=== PATIENT | female | born 2000 | race Caucasian/White ===

== ENCOUNTER 2023-10-12 15:39 | Outpatient (OUT) | payer OTHER, SELFPAY ==
[2023-10-12 16:45] LABS: Estimated Average Glucose 105 mg/dL; Glycohemoglobin A1C 5.3 % (4.5-6.2)
[2023-10-12 17:48] LABS: Free T4 1.04 ng/dL (0.76-1.46)
[2023-10-12 17:52] LABS: Thyroid Stimulating Hormone 2.705 uIU/mL (0.358-3.740)
[2023-10-14 12:09] LABS: FSH 4.9 mIU/mL (.); Luteinizing Hormone(LH) 7.6 mIU/mL (.)
[2023-10-18 06:07] LABS: DHEA, Serum 305 ng/dL (31-701)
== END 2023-10-12 15:40 | disposition home or self-care (01) ==
LOC: LAB 15:44
PROVIDERS: Visit Provider Physician Assistant
DX: E28.2 Polycystic ovarian syndrome (principal); N92.6 Irregular menstruation, unspecified
CPT/HCPCS: 36415; 82626; 82627; 83001; 83002; 83036; 84439; 84443

== ENCOUNTER 2024-02-10 14:54 | Outpatient (OUT) | payer OTHER, SELFPAY ==
--- NOTE | 2024-02-10 14:56 | US_ITS ---
The [address] [address] Patient Name: WALTER SOSA MRN: [id number] date: 2000 Sex: F Assigned Patient Location: Current Patient Location: Accession/Order Number: [id number] Exam Date: 02/10/2024 14:56 Report Date: 02/11/2024 07:27 At the request of: NADIA MENENDEZ Procedure: US pelvis w/ transvaginal EXAMINATION: US pelvis w/ transvaginal HISTORY: MENORRHAGIA WITH REGULAR CYCLE COMPARISON: No relevant comparison available. FINDINGS: Transabdominal and transvaginal images The uterus is anteverted, retroflexed. The uterus measures 6.8 x 3.4 x 4.0 cm. No focal myometrial mass. The endometrium measures 1.4 cm, correlate with the menstrual cycle. The right ovary is normal measuring 2.5 cm. Normal color flow. The left ovary is not visualized. Limited evaluation secondary to patient body habitus and inability to tolerate the transvaginal exam US/US pelvis w/ transvaginal IMPRESSION: Limited exam. No acute abnormality Electronically authenticated by: TANYA LEVINE Date: 02/11/2024 07:27
== END 2024-02-10 14:55 | disposition home or self-care (01) ==
LOC: US 14:54
PROVIDERS: Visit Provider Obstetrics & Gynecology
DX: N92.0 Excessive and frequent menstruation with regular cycle (principal)
CPT/HCPCS: 36415; 76830; 76856; 84439; 84443; 84702; 85025; 85610

== ENCOUNTER 2024-02-10 15:35 | Outpatient (OUT) | payer OTHER, SELFPAY ==
[2024-02-10 16:11] LABS: Prothrombin Time 9.7 sec (9.0-11.6)
[2024-02-10 16:20] LABS: Free T4 1.05 ng/dL (0.76-1.46)
[2024-02-10 16:30] LABS: INR <0.93
[2024-02-10 16:34] LABS: Basophils Percent Auto 0.3 % (0.2-2.0); Eosinophils Absolute Auto 0.2 10^3/uL (0.0-0.7); Eosinophils Percent Auto 1.7 % (0.9-7.0); Hematocrit 41.2 % (36.0-48.0); Hemoglobin 13.7 g/dL (12.0-16.0); Immature Granulocytes Abs Auto 0.03 10^3/uL (0.00-0.03); Immature Granulocytes Pct Auto 0.3 % (0.0-0.5); Lymphocytes Absolute Auto 3.3 10^3/uL (1.2-3.8); Mean Corpuscular HGB Conc 33.3 g/dL (29.9-35.2); Mean Corpuscular Hemoglobin 28.4 pg (26.7-34.0); Mean Corpuscular Volume 85.5 fL (81.0-99.0); Mean Platelet Volume 10.7 fL (9.5-13.5); Monocytes Absolute Auto 0.9 10^3/uL (0.3-0.8); Monocytes Percent Auto 7.9 % (1.7-12.0); Neutrophils Absolute Auto 6.9 10^3/uL (1.4-6.5); Neutrophils Percent Auto 60.8 % (43.0-75.0); Platelet Count 309 10^3/uL (150-450); Red Blood Count 4.82 10^6/uL (4.20-5.40); White Blood Count 11.4 10^3/uL (4.0-11.0)
[2024-02-10 17:03] LABS: HCG Quantitative <1 mIU/mL
== END 2024-02-10 15:36 | disposition home or self-care (01) ==
LOC: LAB 15:35
PROVIDERS: Visit Provider Obstetrics & Gynecology
DX: N92.0 Excessive and frequent menstruation with regular cycle (principal)
CPT/HCPCS: 36415; 84439; 84443; 84702; 85025; 85610

== ENCOUNTER 2025-04-10 12:03 | Outpatient (REF) | payer OTHER, SELFPAY ==
--- OUTSIDE RECORDS SUMMARY | 2024-12-22 05:30 | XMS_ITS ---
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 resourcing consultant-UTI & yeast infection. * Medical History: * Surgical History: T onsillectomy and adenoidectomy, COMMENTS: 2008, ProblemStatus: Active, . Objective: * Vitals: Assessment: Plan: * Treatment: * Billing Information: * Visit Code: * Procedure Codes: * Electronic signature of Kasey Newberry MD on 04/10/2025 at 08:08 AM EDT Sign off status: Pending * Provider: Tez Newberry MD Date: 0 12/22/2024 Generated for Valdemar barrientos/Elieser/Edenilson on: 0 04/10/2025 08:08 AM EDT
--- OUTSIDE RECORDS SUMMARY | 2025-04-02 10:00 | XMS_ITS | Encounter Summary ---
Author Organization [facility] Address [address] [place] [address] Care Team Providers Care Patient'S Librarian Name Role Phone Unavailable Primary Care Provider Unavailabl e Encounter Details Date Type Department Care Team (Latest Contact Info) Description 04/02/2025 10:00 AM EDT Ancillary Procedure [facility] [address] [place] [address] PCB (post coital bleeding); Pelvic pain; Dysmenorrhea; Irregular menses Social History Tobacco Use Types Packs/Day Years Used Date Smoking Tobacco: Never Smokeless Tobacco: Never Alcohol Use Standard Drinks/Week Comments Never 0 (1 standard drink = 0.6 oz pur e alcohol) Comments Unknown Sex and Gender Information Value Date Recorded Sex Assigned at Not on file Legal Sex Female 8:28 PM EDT Gender Identity Not on file Sexual Orientation Not on file documented as of this encounter Plan of Treatment Upcoming Encounters Date Type Department Care Team (Late st Contact Info) Description 05/10/2025 11:20 AM EDT Office Visit JOE [facility] [address] [place] [address] Rodney Aguilar DO [address] [place], [facility]11 documented as of this encounter Procedures Procedure Name Priority Date/Time Associated Diagnosis Comments US PELVIC COMPLETE W/ TV Routine 04/02/2025 10:07 AM EDT PCB (post coital bleeding) Pelvic pain Dysmenorrhea Irregular menses documented in this encounter Results * US Pelvis w/ TV (04/02/2025 10:07 AM EDT) Anatomical Region Laterality Modality Pelvis Ultrasound 04/03/2025 12:3 7 PM EDT Impressions 04/03/2025 1:11 PM EDT Normal pelvic ultrasound appearance TRANSCRIBED BY: ELECTRONICALLY SIGNED BY: Sergio Tran MD [facility] 04/03/2025 1:11 PM EDT FINDINGS: Uterus 6.9 x 3.4 x 4.9 cm Endometrium 10 mm Right ovary 2.7 x 1.9 x 2.1 cm Left ovary 1.5 x 1.1 x 1.7 cm The uterus is normal in size and orientation. No worrisome mass lesions are seen. Endometrium appears unremarkable. No fluid is seen within the cul-de-sac. Both ovaries appear normal for this age. Procedure Note Sergio Tran MD - 04/03/2025 FINDINGS: Uterus 6.9 x 3.4 x 4.9 cm Endometrium 10 mm Right ovary 2.7 x 1.9 x 2.1 cm Left ovary 1.5 x 1.1 x 1.7 cm The uterus is normal in size and orientation. No worrisome mass lesionsare seen. Endometrium appears unremarkable. No fluid is seen within [id number]. Both ovaries appear normal for this age. IMPRESSION: Normal pelvic ultrasound appearance TRANSCRIBED BY: ELECTRONICALLY SIGNED BY: Sergio Tran MD us Rodney Aguilar DO [facility] [place] PROCEDURES Final Result documented in this encounter Visit Diagnoses Diagnosis PCB (post coital bleeding) Postcoital bleeding Pelvic pain Dysmenorrhea Irregular menses Irregular menstrual cycle documented in this encounter
--- OUTSIDE RECORDS SUMMARY | 2025-04-10 10:00 | XMS_ITS | Encounter Summary ---
Demographics Address [address] [facility] [address] Home Phone Mobile Phone Email Address Preferred Language en Marital Status Unmarried Sikhism Affiliation Unknown Race White Ethnic Group Unknown Author Organization [facility] Address [address] [place] [address] Care Team Providers Care Information Operator Name Role Phone Unavailable Primary Care Provider Unavailabl e Reason for Visit * Reason Comments Pre-op Visit Gynecologic Exam Encounter Details Date Type Department Care Team (Late Contact Info) Description 04/10/2025 10:00 AM EDT Office Visit [facility] [place] [facility] [address] [phone] Rodney Aguilar DO [address] [place] [address] Pre-op examination; Pelvic pain; Dysmenorrhea; PCB (post coital bleeding); Well woman exam with routine gynecological exam; PCOS (polycystic ovarian syndrome) Social History Tobacco Use Types Packs/Day Years [...] on file documented as of this encounter Last Filed Vital Signs Vital Sign Reading Time Taken Comments Blood Pressure 120/74 04/10/2025 10:14 AM EDT Pulse - - Temperature - - Respiratory Rate - - Oxygen Saturation - - Inhaled Oxygen Concentration - - Weight 131 kg (287 lb 12.8 oz) 04/10/2025 10:14 AM EDT Height - - Body Mass Index 49.4 07/30/2022 12:00 PM EST documented in this encounter Plan of Treatment Upcoming Encounters Date Type Department Care Team (Late st Contact Info) Description 05/10/2025 11:20 AM EDT Office Visit [facility] [place] [facility] [address] [address] Rodney Aguilar DO [address] [place] [address] Scheduled Orders Name Type Priority Associated Diagnoses Orde r Schedule Pap Smear Pathology and Cytology Routine Well woman exam with routine gynecological exam Ordered: 04/10/2025 hCG, quantitative, Lab Routine PCOS (polycystic ovarian syndrome) Ordered: 04/10/2025 TSH Lab Routine PCOS (polycystic ovarian syndrome) Ordered: 04/10/2025 T4, free Lab Routine PCOS (polycystic ovarian syndrome) Ordered: 04/10/2025 CBC and differential Lab Routine PCOS (polycystic ovarian syndrome) Ordered: 04/10/2025 Follicle stimulating hormone Lab Routine PCOS (polycystic ovarian syndrome) Ordered: 04/10/2025 Luteinizing hormone Lab Routine PCOS (polycystic ovarian syndrome) Ordered: 04/10/2025 Hemoglobin A1c Lab Routine Pelvic pain Dysmenorrhea PCB (post coital bleeding) Ordered: 04/10/2025 DHEA-sulfate Lab Routine PCOS (polycystic ovarian syndrome) Ordered: 04/10/2025 DHEA Lab Routine PCOS (polycystic ovarian syndrome) Expected: 04/10/2025 (Approximate), Expires: 04/10/2026 documented as of this encounter Visit Diagnoses Diagnosis Pre-op examination Pelvic pain Dysmenorrhea PCB (post coital bleeding) Postcoital bleeding Well woman exam with routine gynecological exam Routine gynecological examination PCOS (polycystic ovarian syndrome) Polycystic ovaries documented in this encounter
--- OUTSIDE RECORDS SUMMARY | 2025-04-10 12:07 | XMS_ITS | Clinical Summary ---
Author Organization [facility] tem Address [id number] [address] [place] [address] Care Team Providers Care Telephone Supervisor Name Role Phone No Pcp, No Pcp Primary Care Provider Unavailabl e Allergies Active Allergy Reactions Criticality Noted Date Comments Hydrocodone 08/08/2020 Oxycodone 02/25/2022 Medications * This document contains information received from the source organization and may not represent a complete record from that organization. aspirin 325 mg EC tablet Take 1 tablet (325 mg total) by mouth in the morning. 14 tablet 4 Active Additional Information Patient not taking.Reported on 10/23/2024 ibuprofen (MOTRIN) 800 mg tablet Take 1 tablet (800 mg total) by mouth every 6 (six) hours as needed for pain. 21 tablet 5 Active Active Problems Problem Noted Date Diagnosed Date Bipolar II disorder 02/10/2022 Generalized anxiety disorder 02/10/2022 Post traumatic stress disorder (PTSD) 02/10/2022 Dysmenorrhea 04/06/2018 Resolved Problems Problem Noted Date Diagnosed Date Resolved Date Abnormal uterine bleeding 04/06/2018 Immunizations Immunization Administration Dates Next Due DTaP 04/24/2013, 4,03/15/2001,07/08,04/30/2000,02/26/2000 HPV Quadrivalent 12/02/2015,07/26/2013, 3 Hepatitis A 03/26/2009,10/24/2007 Hepatitis B 03/15/2001,07/08/2000,1999 HiB 03/15/2001, 0,04/30/2000,02/25 IPV 04/29/2004, 1,04/30/2000,02/25 Influenza, Injectable, quadr ivalent (PF) 09/02/2017 Influenza, Unspecified 06/19/2014,07/26/2013,06/2009 MMR 09/21/2016,04/24/2013 Meningococcal Polysaccharide 09/21/2016 Pneumococcal Conjugate 13-Valent 06/15/2011 Tdap 01/03/2022 Varicella 10/24/2007,12/24/2000 Family History Medical History Relation Name Comments Autism Brother 1/2 BROTHER Muscular dystrophy Brother 1/2 BROTHER Bipolar disorder Father Bipolar disorder Mother Thyroid disease Mother Bipolar disorder Sister Relation Name Status Comments Brother 1/2 BROTHER Alive Father Mother DURING [facility] L[facility] WITH PATIENT Sister Social History Tobacco Use Types Packs/Day Years Used Date Smoking Tobacco: Never Smokeless Tobacco: Never Alcohol Use Standard Drinks/Week Comments Not Currently 0 (1 standard drink = 0.6 oz pur e alcohol) PHQ-2 Answer Date Recorded Total Score 21 02/10/2022 Childcare Answer Date Recorded Childcare Unknown 02/08/2019 Employment Answer Date Recorded Employment Unknown 02/08/2019 Hunger Screening Answer Date Recorded Within the past 12 months we worried whether our food would run out before we got money to buy more. Never True 12/17/2024 Within the past 12 months th e food we bought just didn't last and we didn't have money to get more. Never True 12/17/2024 Purpose - Life Answer Date Recorded Purpose and direction in life Unknown Education Answer Date Recorded What is the highest level of school you have completed or the highest degree you have received? High school graduate 02/10/2022 Comments No Sex and Gender Information Value Date Recorded Sex Assigned at Not on file Legal Sex Female 11:56 AM EDT Gender Identity Not on file Sexual Orientation Not on file Last Filed Vital Signs Vital Sign Reading Time Taken Comments Blood Pressure 143/93 12/17/2024 10:45 AM EDT Pulse 87 12/17/2024 10:38 AM EDT Temperature 36.9 C (98.4 F) 12/17/2024 10:38 AM EDT Respiratory Rate 18 12/17/2024 10:38 AM EDT Oxygen Saturation 97% 12/17/2024 10:38 AM EDT Inhaled Oxygen Concentration - - Weight 117.9 kg (260 lb) 12/17/2024 10:38 AM EDT Height 162.6 cm (5' 4 ) 12/17/2024 10:38 AM EDT Body Mass Index 44.63 12/17/2024 10:38 AM EDT Plan of Treatment Health Maintenance Due Date Last Done Comments Depression Screening 2011 Adult BMI Follow Up Plan 12/13/2017 Pap Smear 12/13/2020 Influenza Vaccine 04/30/2025 09/02/2017, , 07/26/2013, Additional history exists Adult BMI Screening 12/17/2025 12/17/2024 Tobacco Screening 12/17/2025 12/17/2024 DTaP,Tdap and Td Vaccines (8 - Td or Tdap) 01/04/2032 01/03/2022, 04/24/2013, 04/24/2013, Additional history exists Medical Devices Not on file Insurance [employer] Care Teams Telephone Supervisor Relationship Specialty Start Date End Date No P[place], [place] [id number] PCP - General Family Medicine 11/21/23
--- OUTSIDE RECORDS SUMMARY | 2025-04-10 12:07 | XMS_ITS | Clinical Summary ---
Demographics Address [address] [place] [address] Home Phone Mobile Phone Email Address [email or web address] Preferred Language en Marital Status Unmarried Pentecostalism Affiliation Unknown Race White Ethnic Group Unknown Author Organization [facility] Address [address] [place] [address] Care Team Providers Care Nfl Player Name Role Phone Unavailable Primary Care Provider Unavailabl e Allergies Active Allergy Reactions Criticality Noted Date Comments Hydrocodone 08/08/2020 Hydrocodone-Acetaminophen 02/08/2023 Latex 02/08/2023 Oxycodone 02/25/2022 Oxycodone-Acetaminophen 02/08/2023 Wound Dressing Adhesive 02/08/2023 Medications acetaminophen (Tylenol) 500 MG tablet Take 1,000 mg by mouth every 4 (four) hours if needed for mild pain Active medroxyPROGESTE Sven (Provera) 10 MG tabletIndicatio ns:Irregular menses Take 1 tablet (10 mg) by mouth Daily for 10 days 10 tablet 04/13/2024 Active norethindrone-e thinyl estradiol (09/18) 1-20 MG-MCG tabletIndicatio ns:PCB (post coital bleeding),Dysme norrhea,Irregul ar menses Take 1 tablet by mouth Daily 28 tablet 11 02/27/2025 02/28/20 26 Active doxycycline (Vibramycin) 100 MG capsuleIndicati ons:PCB (post coital bleeding),Pelvi c pain Take 1 capsule (100 mg) by mouth in the morning and 1 capsule (100 mg) before bedtime. Take with at least 8 ounces (large glass) of water, do not lie down for 30 minutes after. 60 capsule 02/27/2025 03/29/20 25 Encounters Date Type Department Care Team Description 04/10/2025 10:00 AM EDT [place] [address] Rodney Aguilar DO Pre-op examination; Pelvic pain; Dysmenorrhea; PCB (post coital bleeding); Well woman exam with routine gynecological exam; PCOS (polycystic ovarian syndrome) 04/02/2025 10:00 AM EDT [place] [address] PCB (post coital bleeding); Pelvic pain; Dysmenorrhea; Irregular menses 02/28/2025 [place] [address] Rodney Aguilar DO 02/27/2025 10:00 AM EDT [place] [address] Rodney Aguilar DO PCB (post coital bleeding); Pelvic pain; Dysmenorrhea; Irregular menses 02/27/2025 External Result Encounter [facility] External Department Unsolicited Rodney Aguilar DO 02/27/2025 Bamboo [place] [address] Rodney Aguilar DO from Last 3 Months Social History Tobacco Use Types Packs/Day Years Used Date Smoking Tobacco: Never Smokeless Tobacco: Never Tobacco Cessation:Counseling Given: Not Answered Alcohol Use Standard Drinks/Week Comments Never 0 [...] 12.8 oz) 04/10/2025 10:14 AM EDT Height 162.6 cm (5' 4 ) 07/30/2022 12:00 PM EST Body Mass Index 49.4 07/30/2022 12:00 PM EST Plan of Treatment Upcoming Encounters Date Type Department Care Team (Late st Contact Info) Description 05/10/2025 11:20 AM EDT Office Visit [facility] [address] [place] [address] Rodney Aguilar, [address] [place] [address] Procedures Procedure Name Priority Date/Time Associated Diagnosis Comments US PELVIC COMPLETE W/ TV Routine 04/02/2025 10:07 AM EDT PCB (post coital bleeding) Pelvic pain Dysmenorrhea Irregular menses RECURRENT VAGINITIS (HTRX) Routine 02/27/2025 12:17 PM EDT from Last 3 Months Results * US Pelvis w/ TV (04/02/2025 10:07 AM EDT) Anatomical Region Laterality Modality Pelvis Ultrasound 04/03/2025 12:3 7 PM EDT Impressions 04/03/2025 1:11 PM EDT Normal pelvic ultrasound appearance TRANSCRIBED BY: ELECTRONICALLY SIGNED BY: Sergio Tran MD Narrative 04/03/2025 1:11 PM EDT FINDINGS: Uterus 6.9 [...] appears unremarkable. No fluid is seen within ibdkja-[id number]-mtg. Both ovaries appear normal for this age. IMPRESSION: Normal pelvic ultrasound appearance TRANSCRIBED BY: ELECTRONICALLY SIGNED BY: Sergio Tran MD us Rodney Aguilar [facility] US PROCEDURES Final Result * (ABNORMAL) RECURRENT VAGINITIS (HTRX) (02/27/2025 12:17 PM EDT) [facility] [address] ATOPOBIUM VAGINAE 28.669(A) 19.961 - 24.689 ppm 02/28/2025 5:58 AM EDT [facility] ATOPOBIUM VAGINAE Detected(A) 19.961 - 24.689 ppm 02/28/2025 5:58 AM EDT [facility] BVAB 2,3 (BACTERIAL VAGINOSIS ASSOCIATED BACTERIA 2, 3); MOBILUNCUS SPP 0 19.961 - 24.689 ppm 02/28/2025 5:58 AM EDT [facility] BVAB 2,3 (BACTERIAL VAGINOSIS ASSOCIATED BACTERIA 2, 3); MOBILUNCUS SPP Not Detected 19.961 - 24.689 ppm 02/28/2025 5:58 AM EDT [facility] MICHELLE ALBICANS, PARAPSILOSIS, TROPICALIS 0 19.961 - 30.770 ppm 02/28/2025 5:58 AM EDT [facility] MICHELLE ALBICANS, PARAPSILOSIS, TROPICALIS Not Detected 19.961 - 30.770 ppm 02/28/2025 5:58 AM EDT [facility] MICHELLE GLABRATA 0 23.000 - 32.138 ppm 02/28/2025 5:58 AM EDT [facility] MICHELLE GLABRATA Not Detected 23.000 - 32.138 ppm 02/28/2025 5:58 AM EDT [facility] MICHELLE KRUSEI 0 23.000 - 32.271 ppm 02/28/2025 5:58 AM EDT [facility] MICHELLE KRUSEI Not Detected 23.000 - 32.271 ppm 02/28/2025 5:58 AM EDT [facility] CHLAMYDIA TRACHOMATIS 0 23.000 - 31.467 ppm 02/28/2025 5:58 AM EDT [facility] CHLAMYDIA TRACHOMATIS Not Detected 23.000 - 31.467 ppm 02/28/2025 5:58 AM EDT [facility] GARDNERELLA VAGINALIS 0 19.961 - 24.689 ppm 02/28/2025 5:58 AM EDT [facility] GARDNERELLA VAGINALIS Not Detected 19.961 - 24.689 ppm 02/28/2025 5:58 AM EDT [facility] MEGASPHAERA (TYPES 1, 2) 0 19.961 - 24.689 ppm 02/28/2025 5:58 AM EDT [facility] MEGASPHAERA (TYPES 1, 2) Not Detected 19.961 - 24.689 ppm 02/28/2025 5:58 AM EDT [facility] NEISSERIA GONORRHOEAE 0 23.000 - 32.117 ppm 02/28/2025 5:58 AM EDT [facility] NEISSERIA GONORRHOEAE Not Detected 23.000 - 32.117 ppm 02/28/2025 5:58 AM EDT [facility] TRICHOMONAS VAGINALIS 0 23.000 - 32.119 ppm 02/28/2025 5:58 AM EDT [facility] TRICHOMONAS VAGINALIS Not Detected 23.000 - 32.119 ppm 02/28/2025 5:58 AM EDT [facility] MYCOPLASMA GENITALIUM 0 19.961 - 24.689 ppm 02/28/2025 5:58 AM EDT [facility] MYCOPLASMA GENITALIUM Not Detected 19.961 - 24.689 ppm 02/28/2025 5:58 AM EDT [facility] Tissue 02/27/2025 12:1 7 PM EDT 02/28/2025 1:32 AM EDT us Rodney Aguilar DO LAB BLOOD ORDERABLES Final Resul t [facility] [address] [place] [address] from Last 3 Months Insurance * Guarantor: Mami Carmichael Account Type Relation to Patient Date of Phone Billing Address Personal/Family Self 2000 [address] [place], [place] [id number] [place] [address] ADMINISTRATIVE SERVICES
--- OUTSIDE RECORDS SUMMARY | 2025-04-10 12:07 | XMS_ITS | Encounter Summary ---
Demographics Address [address] [place] [address] Home Phone Mobile Phone Email Address Preferred Language en Marital Status Unmarried Christian Affiliation Unknown Race White Ethnic Group Unknown Author Organization [facility] Address [address] [place] [address] Care Team Providers Care Log Haul Chain Feeder Name Role Phone Ana Felipe Unavailable Encounter Details Date Type Department Care Team (Late st Contact Info) Description 02/11/2024 Clinisync Result Encounter [facility] External Department Unsolicited Rodney Aguilar DO [address] [place], [place] [id number] Social History Tobacco Use Types Packs/Day Years [...] AM EDT Office Visit [facility] [address] [place] [address] Rodney Aguilar DO [address] [place] [address] documented as of this encounter Procedures Procedure Name Priority Date/Time Associated Diagnosis Comments US PELVIS W/ TRANSVAGINAL 02/11/2024 7:27 AM EDT documented in this encounter Results * US PELVIS W/ TRANSVAGINAL (02/11/2024 7:27 AM EDT) Anatomical Region Laterality Modality Other 02/11/2024 7:27 AM EDT Narrative 02/11/2024 7:29 AM EDT [address] [address] Ultrasound Report Signed Patient: MAMI CARMICHAEL MR#: [id number] : 2000 Acct:[id number] Age/Sex: 23 / F ADM Date: 02/10/24 Loc: US Attending Dr: Rodney Aguilar D.O. Ordering Physician: Rodney Aguilar D.O. Date of Service: 02/10/24 Procedure(s): US pelvis w/ transvaginal Accession Number(s): [id number] cc: Rodney Aguilar D.O.; Physician,Non-Staff [facility] [address] [address] Patient Name: MAMI CARMICHAEL MRN: [id number] date: 2000 Sex: F Assigned Patient Location: US Current Patient Location: Accession/Order Number: [id number] Exam Date: 02/10/2024 14:56 Report Date: 02/11/2024 07:27 At the request of: RODENY AGUILAR Procedure: US pelvis w/ transvaginal EXAMINATION: US pelvis w/ transvaginal HISTORY: MENORRHAGIA WITH REGULAR CYCLE COMPARISON: No relevant comparison available. FINDINGS: Transabdominal and transvaginal images The uterus is anteverted, retroflexed. The uterus measures 6.8 x 3.4 x 4.0 cm. No focal myometrial mass. The endometrium measures 1.4 cm, correlate with the menstrual cycle. The right ovary is normal measuring 2.5 cm. Normal color flow. The left ovary is not visualized. Limited evaluation secondary to patient body habitus and inability to tolerate the transvaginal exam US/US pelvis w/ transvaginal IMPRESSION: Limited exam. No acute abnormality Electronically authenticated by: TANYA LEVINE Date: 02/11/2024 07:27 Dictated By: Tanya Levine M.D. Signed By: 02/11/24 0729 DD/ 0727 TD/TT: Type Mapper: Procedure Note Radiology, Radiologist, MD - 02/11/2024 The [place] [id number] Ultrasound Report Signed Patient: MAMI CARMICHAEL AMR#: [id number] : 2000Acct:[id number] Age/Sex: 23 / FADM Date: 02/10/24 Loc: US Attending Dr: Rodney Aguilar D.O. Ordering Physician: Rodney Aguilar D.O. Date of Service: 02/10/24 Procedure(s): US pelvis w/ transvaginal Accession Number(s): [id number] cc: Rodney Aguilar D.O.; Physician,Non-Staff [facility] [place] [id number] Patient Name: MAMI CARMICHAEL MRN: [id number] date: 2000 Sex: F Assigned Patient Location: US Current Patient Location: Accession/Order Number: [id number] Exam Date: 02/10/2024 14:56 Report Date: 02/11/2024 07:27 At the request of: RODNEY AGUILAR Procedure: US pelvis w/ transvaginal EXAMINATION: US pelvis w/ transvaginal HISTORY: MENORRHAGIA WITH REGULAR CYCLE COMPARISON: No relevant comparison available. FINDINGS: Transabdominal and transvaginal images The uterus is anteverted, retroflexed. The uterus measures 6.8 x 3.4 x 4.0cm. No focal myometrial mass. The endometrium measures 1.4 cm, correlate with the menstrual cycle. The right ovary is normal measuring 2.5 cm. Normal color flow. The left ovary is not visualized. Limited evaluation secondary to patient body habitus and inability totolerate the transvaginal exam US/US pelvis w/ transvaginal IMPRESSION: Limited exam. No acute abnormality Electronically authenticated by: TANYA LEVINE Date: 02/11/2024 07:27 Dictated By: Tanya Levine M.D. Signed By:02/11/24728 DD/ 6 TD/TT: Type Mapper: us Rodney Aguilar DO [facility] Final Result documented in this encounter Visit Diagnoses Not on filedocumented in this encounter Care Teams Log Haul Chain Feeder Relationship Specialty Start Date End Date Ana Felipe PA [address] [place] [address] [place] [address] PCP - [facility] 11/29/23 documented as of this encounter
== END 2025-04-10 12:04 | disposition home or self-care (01) ==
LOC: LAB 12:03
PROVIDERS: Visit Provider Obstetrics & Gynecology
DX: Z01.419 Encounter for gynecological examination (general) (routine) without abnormal findings (principal)
CPT/HCPCS: 88175

== ENCOUNTER 2025-04-17 10:22 | Outpatient (OUT) | payer OTHER, SELFPAY ==
--- OUTSIDE RECORDS SUMMARY | 2025-04-10 10:00 | XMS_ITS | Encounter Summary ---
Author Organization [facility] Address [address] [place] [address] Care Team Providers Care Order Planner Name Role Phone Unavailable Primary Care Provider Unavailabl e Reason for Visit * Reason Comments Pre-op Visit Gynecologic Exam Encounter Details Date Type Department Care Team (Late st Contact Info) Description 04/10/2025 10:00 AM EDT Office Visit [facility] [place] [facility] [address] [facility] [address] [phone] Rodney Aguilar DO [address] [place] [address] Pre-op examination; Pelvic pain; Dysmenorrhea; PCB (post [...] 12:00 PM EST documented in this encounter Progress Notes * Naty Silverio - 04/10/2025 10:00 AM EDT Reason for Appointment: Patient ID: Mami Carmichael is a 24 y.o. female who presents for Pre-op Visit and Gynecologic Exam Patient presents today for a Pre Op/Annual appointment. Patient is scheduled to undergo Diagnostic Laparoscopy, possible SANTI, possible FOE, possible BSO on 04-26-[address] Aguilar at [facility]. appointment. MEDICATIONS Current Outpatient Medications Medication Instructions acetaminophen (TYLENOL) 1,000 mg, Oral, Every 4 hours PRN medroxyPROGESTERone (PROVERA) 10 mg, Oral, Daily norethindrone-ethinyl estradiol (09/18) 1-20 MG-MCG tablet 1 tablet, Oral, Daily ALLERGIES Allergies Allergen Reactions Hydrocodone Hydrocodone-Acetaminophen Latex Oxycodone Oxycodone-Acetaminophen Wound Dressing Adhesive PROBLEMS Active Ambulatory Problems Diagnosis Date Noted No Active Ambulatory Problems Resolved Ambulatory Problems Diagnosis Date Noted No Resolved Ambulatory Problems Past Medical History: Diagnosis Date Anxiety Dyspareunia in female Hormone imbalance Migraines PCOS (polycystic ovarian syndrome) HISTORY PAST MEDICAL HISTORY SOCIAL HISTORY Past Medical History: Diagnosis Date Anxiety Dyspareunia in female Hormone imbalance Migraines PCOS (polycystic ovarian syndrome) Social History Tobacco Use Smoking status: Never Smokeless tobacco: Never Substance Use Topics Alcohol use: Never Drug use: Never FAMILY HISTORY No family history on file. SURGICAL HISTORY Past Surgical History: Procedure Laterality Date DILATION AND CURETTAGE PAP SMEAR 08/27/2021 negative SALPINGECTOMY Left TONSILLECTOMY REVIEW OF SYSTEMS Review of Systems: Review of Systems Constitutional: Negative. HENT: Negative. Eyes: Negative. Respiratory: Negative. Cardiovascular: Negative. Gastrointestinal: Negative. Genitourinary: Positive for menstrual problem and pelvic pain. Musculoskeletal: Negative. Skin: Negative. Neurological: Negative. All other systems reviewed and are negative. Hematological: Negative. Endocrine: Negative. Allergic/Immunologic: Negative. OBJECTIVE Objective: Physical Exam Constitutional: Appearance: Normal appearance. She is well-developed. Genitourinary: Vulva normal. Breasts: Breasts are soft. Right: Normal. Left: Normal. Cardiovascular: Rate and Rhythm: Normal rate and regular rhythm. Pulmonary: Effort: Pulmonary effort is normal. Breath sounds: Normal breath sounds. Abdominal: General: Bowel sounds are normal. There is no distension. Palpations: Abdomen is soft. Tenderness: There is no abdominal tenderness. There is no guarding or rebound. Musculoskeletal: General: No swelling. Normal range of motion. Right lower leg: No edema. Left lower leg: No edema. Neurological: Mental Status: She is alert and oriented to person, place, and time. Skin: General: Skin is warm and dry. Psychiatric: Mood and Affect: Mood normal. Behavior: Behavior normal. Vitals and nursing note reviewed. Exam conducted with a manager research development present. Vitals: Estimated body mass index is 48.79 kg/m?? as calculated from the following: Height as of 07/30/22: 5' 4 . Weight as of 02/27/25: 284 lb 4 oz. BP: No LMP recorded. ASSESSMENT & PLAN Assessment/Plan Encounter Diagnosis: ICD-10-CM 1. Pre-op examination Z01.818 2. Pelvic pain R10.2 3. Dysmenorrhea N94.6 4. PCB (post coital bleeding) N93.0 Procedures Annual: Patient presents today for an annual exam. Patient states she is doing well and has complaints. Papwas obtained without difficulty. Pre Op: Patient is doing well but has complaints of post coital bleeding , pelvic pain and dysmenorrhea. I have discussed conservative management vs. surgical management with the patient in detail and patient desires surgical management at this time. Patient will undergo Diagnostic Laparoscopy, possible SANTI, possible FOE, possible BSO on 04-26-25. Surgical consents were signed, mmc was reviewed, and patient is to proceed to [facility] OR. Follow Up: Patient is to follow up between 1-2 weeks post operative to assess proper healing and recovery fromprocedure. Documented by Teersa Sherman LPN on behalf of: Rodney Aguilar DO documented in this encounter Plan of Treatment Upcoming Encounters Date Type Department Care Team (Late st Contact Info) Description 05/10/2025 11:20 AM EDT Office Visit [facility] [address] [facility] [address] [address] Rodney Aguilar DO [address] [place] [address] Scheduled Orders Name Type Priority Associated Diagnoses [...]
--- OUTSIDE RECORDS SUMMARY | 2025-04-17 10:25 | XMS_ITS | Encounter Summary ---
Author Organization [facility] Address [address] [place] [address] Care Team Providers Care Fire Protection Inspector Name Role Phone Unavailable Primary Care Provider Unavailabl e Encounter Details Date Type Department Care Team (Late st Contact Info) Description 04/10/2025 Clinisync Result Encounter [facility] External Department Unsolicited Rodney Aguilar, DO [address] [place] [address] Social History Tobacco Use Types Packs/Day Years [...] Encounters Date Type Department Care Team (Late Contact Info) Description 05/10/2025 11:20 AM EDT Office Visit [facility]E [place] [facility] [address] [place] [address] Rodney Aguilar DO [address] [place] [address] documented as of this encounter Procedures Procedure Name Priority Date/Time Associated Diagnosis Comments IGP,APTIMA HPV,AGE GDLN Routine 04/10/2025 10:03 AM EDT documented in this encounter Results * IGP,APTIMA HPV,AGE GDLN (04/10/2025 10:03 AM EDT) AGE GDLN ACOG TESTING Note . [facility] Comment: TESTS RESULT FLAG UNITS REF RANGE LAB Clinician Provided Cytology Information Source.............Cervix;Endocervix No. of containers..01 ThinPrep Vial Age Algo ACOG Marialuisa... FLAG LEGEND: L-Low Normal,H-High Normal,LL-Alert Low,HH-Alert High <-Panic Low,>-Panic High,A-Abnormal,AA-Critical Abnormal Performed at: 01 =G [facility] [address] Kizzy Bonilla MD, IGP, RFX APTIMA HPV ASCU Note . [facility] Comment: TESTS RESULT FLAG UNITS REF RANGE LAB DIAGNOSIS: 02 NEGATIVE FOR INTRAEPITHELIAL LESION OR MALIGNANCY. Specimen adequacy: 02 Satisfactory for evaluation. Endocervical and/or squamous metaplastic cells (endocervical component) are present. Performed by: 02 So [facility] ([facility]) . 02 Note: Note 02 The Pap smear is a screening test designed to aid in the detection of premalignant and malignant conditions of the uterine cervix. It is not a diagnostic procedure and should not be used as the sole means of detecting cervical cancer. Both false-positive and false-negative reports do occur. Test Methodology: Note 02 This liquid based ThinPrep(R) pap test was screened with the use of an image guided system. . 02 The HPV DNA reflex criteria were not met with this specimen result therefore, no HPV testing was performed. FLAG LEGEND: L-Low Normal,H-High Normal,LL-Alert Low,HH-Alert High <-Panic Low,>-Panic High,A-Abnormal,AA-Critical Abnormal Performed at: [address] [address] Kizzy Bonilla MD, Performed at: =G - [facility] [address] [id number] [employer] Supervisor: Kizzy Bonilla MD, Phone: [phone] Performed at: [facility] [address] [id number] [employer] Supervisor: Kizzy Bonilla MD, Phone: [phone] 04/10/2025 10:0 3 AM EDT 04/10/2025 12:09 PM EDT Narrative [facility] - 04/13/2025 5:08 PM EDT BRUSH-SPATULA CERVIX ENDOCERVIX us Rodney Aguilar DO LAB BLOOD ORDERABLES Final Resul t [facility] documented in this encounter Visit Diagnoses Not on filedocumented in this encounter
--- OUTSIDE RECORDS SUMMARY | 2025-04-17 10:25 | XMS_ITS | Encounter Summary ---
Demographics Address [address] [place] [address] Home Phone Mobile Phone Email Address Preferred Language en Marital Status Unmarried Anabaptist Affiliation Unknown Race White Ethnic Group Unknown Author Organization [facility] Address [address] [place] [address] Care Team Providers Care Reaming Press Operator Name Role Phone Ana Felipe Unavailable Encounter Details Date Type Department Care Team (Late st Contact Info) Description 02/11/2024 Clinisync Result Encounter [facility] External Department Unsolicited Rodney Aguilar DO [address] [place], [place] [address] Social History Tobacco Use Types Packs/Day Years [...] AM EDT Office Visit JOE KOHLER [address] [place] [address] Rodney Aguilar DO [address] [place] [address] documented as of this encounter Procedures Procedure Name Priority Date/Time Associated Diagnosis Comments US PELVIS W/ TRANSVAGINAL 02/11/2024 7:27 AM EDT documented in this encounter Results * US PELVIS W/ TRANSVAGINAL (02/11/2024 7:27 AM EDT) Anatomical Region Laterality Modality Other 02/11/2024 7:27 AM EDT Narrative 02/11/2024 7:29 AM EDT [address] [address] Ultrasound Report Signed Patient: MAMI CARMICHAEL MR#: [id number] : 2000 Acct:[id number] Age/Sex: 23 / F ADM Date: 02/10/24 Loc: US Attending Dr: Rodney Aguilar D.O. Ordering Physician: Rodney Aguilar D.O. Date of Service: 02/10/24 Procedure(s): US pelvis w/ transvaginal Accession Number(s): [id number] cc: Rodney Aguilar D.O.; Physician,Non-Staff [facility] [address] [address] Patient Name: MAMI CARMICHAEL MRN: [id number] date: 2000 Sex: F Assigned Patient Location: US Current Patient Location: Accession/Order Number: [id number] Exam Date: 02/10/2024 14:56 Report Date: 02/11/2024 [...] Signed By: 02/11/24 0729 DD/ 0727 TD/TT: Induction Coordination Engineer: Procedure Note Radiology, Radiologist, MD - 02/11/2024 The [place] [id number] Ultrasound Report Signed Patient: MAMI CARMICHAEL AMR#: [id number] : 2000Acct:[id number] Age/Sex: 23 / FADM Date: 02/10/24 Loc: US Attending Dr: Rodney Aguilar D.O. Ordering Physician: Rodney Aguilar D.O. Date of Service: 02/10/24 Procedure(s): US pelvis w/ transvaginal Accession Number(s): [id number] cc: Rodney Aguilar D.O.; Physician,Non-Staff [facility] [place] [id number] Patient Name: MAMI CARMICHAEL MRN: [id number] date: 2000 Sex: F Assigned Patient Location: US Current Patient Location: Accession/Order Number: [id number] Exam Date: 02/10/2024 14:56 Report Date: 02/11/2024 [...] Levine M.D. Signed By:02/11/24728 DD/ 6 TD/TT: Induction Coordination Engineer: us Rodney Aguilar DO [facility] Final Result documented in this encounter Visit Diagnoses Not on filedocumented in this encounter Care Teams Reaming Press Operator Relationship Specialty Start Date End Date Ana Felipe PA [address] [place] [address] [place] [address] PCP - [facility] 11/29/23 documented as of this encounter
--- OUTSIDE RECORDS SUMMARY | 2025-04-17 10:25 | XMS_ITS | Clinical Summary ---
Author Organization [facility] tem Address [id number] [address] [place] [address] Care Team Providers Care Environmental Assistant Name Role Phone No Pcp, No Pcp [...] Insurance [employer] Care Teams Environmental Assistant Relationship Specialty Start Date End Date No Pcp, [place] [address] PCP - General Family Medicine 11/21/23
--- OUTSIDE RECORDS SUMMARY | 2025-04-17 10:25 | XMS_ITS | Clinical Summary ---
Demographics Address [address] [place] [address] Home Phone Mobile Phone Email Address Preferred Language en Marital Status Unmarried Confucianist Affiliation Unknown Race White Ethnic Group Unknown Author Organization [facility] Address [address] [place] [address] Care Team Providers Care Seafood Processor Name Role Phone Unavailable Primary Care Provider [...] 04/10/2025 10:00 AM EDT Office Visit JOE [facility]OH[facility]ER [address] [place] [address] Rodney Aguilar DO Pre-op examination; Pelvic pain; Dysmenorrhea; PCB (post coital bleeding); Well woman exam with routine gynecological exam; PCOS (polycystic ovarian syndrome) 04/10/2025 Clinisync Result Encounter [facility] External Department Unsolicited Rodney Aguilar DO 04/02/2025 10:00 AM EDT Ancillary Procedure [facility] [place] [address] PCB (post coital bleeding); Pelvic pain; Dysmenorrhea; Irregular menses 02/28/2025 [place] [phone] Rodney Aguilar DO 02/27/2025 10:00 AM EDT Office Visit [facility] [place] [phone] Rodney Aguilar DO PCB (post coital bleeding); Pelvic pain; Dysmenorrhea; Irregular menses 02/27/2025 External Result Encounter [facility] External Department Unsolicited Rodney Aguilar DO 02/27/2025 Bamboo flowsheet [facility] [place] [phone] Rodney Aguilar DO from Last 3 Months [...] EDT Office Visit [facility] [address] [place] [phone] Rodney Aguliar DO [address] [place] [address] Procedures Procedure Name Priority Date/Time Associated Diagnosis Comments IGP,APTIMA HPV,AGE GDLN Routine 04/10/2025 10:03 AM EDT US PELVIC COMPLETE W/ TV Routine 04/02/2025 10:07 AM EDT PCB (post coital bleeding) Pelvic pain Dysmenorrhea Irregular menses RECURRENT VAGINITIS (HTRX) Routine 02/27/2025 12:17 PM EDT from Last 3 Months Results * IGP,APTIMA HPV,AGE GDLN (04/10/2025 10:03 AM EDT) AGE GDLN ACOG TESTING Note . [facility] Comment: TESTS RESULT FLAG UNITS REF RANGE LAB Clinician Provided Cytology Information Source.............Cervix;Endocervix No. of containers..01 ThinPrep Vial Age Algo ACOG Marialuisa... FLAG LEGEND: L-Low Normal,H-High Normal,LL-Alert Low,HH-Alert High <-Panic Low,>-Panic High,A-Abnormal,AA-Critical Abnormal Performed at: 01 =G [facility] [address] [facility] [place] [address] Kizzy Bonilla MD, IGP, RFX APTIMA HPV ASCU Note . [facility] Comment: TESTS RESULT FLAG UNITS REF RANGE LAB DIAGNOSIS: 02 NEGATIVE FOR INTRAEPITHELIAL LESION OR MALIGNANCY. Specimen adequacy: 02 Satisfactory for evaluation. Endocervical and/or squamous metaplastic cells (endocervical component) are present. Performed by: Adolfo Mcleod, Sys Dir ([facility]) . 02 Note: Note 02 The Pap [...] <-Panic Low,>-Panic High,A-Abnormal,AA-Critical Abnormal Performed at: [address] [address] Kizzy Bonilla MD, Performed at: = - [facility] [address] [id number] [employer] Apprentice: Kizzy Bonilla MD, Phone: [phone] Performed at: [facility] [address] [id number] [place] Apprentice: Kizzy Bonilla MD, Phone: [phone] 04/10/2025 10:0 3 AM EDT 04/10/2025 12:09 PM EDT Narrative ALEXANDR - 04/13/2025 5:08 PM EDT BRUSH-SPATULA CERVIX ENDOCERVIX us Rodney Lauren DO LAB BLOOD ORDERABLES Final Resul t [facility] * US Pelvis w/ TV (04/02/2025 10:07 [...] appears unremarkable. No fluid is seen within [id number]. Both ovaries appear normal for this age. IMPRESSION: Normal pelvic ultrasound appearance TRANSCRIBED BY: ELECTRONICALLY SIGNED BY: Sergio Tran MD us Rodney Laurenpratibha RODRIGUEZ [facility] US PROCEDURES Final Result * (ABNORMAL) RECURRENT VAGINITIS (HTRX) (02/27/2025 12:17 PM EDT) [facility] ATOPOBIUM VAGINAE 28.669(A) 19.961 - 24.689 ppm 02/28/2025 5:58 AM EDT [facility] ATOPOBIUM VAGINAE Detected(A) 19.961 - 24.689 ppm 02/28/2025 5:58 AM EDT [facility] BVAB 2,3 (BACTERIAL VAGINOSIS ASSOCIATED BACTERIA 2, 3); MOBILUNCUS SPP 0 19.961 - 24.689 ppm 02/28/2025 5:58 AM EDT [facility] BVAB 2,3 (BACTERIAL VAGINOSIS ASSOCIATED BACTERIA 2, 3); MOBILUNCUS SPP Not Detected 19.961 - 24.689 ppm 02/28/2025 5:58 AM EDT [facility] MICHELLE ALBICANS, PARAPSILOSIS, TROPICALIS 0 19.961 - 30.770 ppm 02/28/2025 5:58 AM EDT [facility] MICHELLE ALBICANS, PARAPSILOSIS, TROPICALIS Not Detected 19.961 - 30.770 ppm 02/28/2025 5:58 AM EDT [facility] MICHELLE GLABRATA 0 23.000 - 32.138 ppm 02/28/2025 5:58 AM EDT [facility] MICHELLE GLABRATA Not Detected 23.000 - 32.138 ppm 02/28/2025 5:58 AM EDT [facility] MICHELLE KRUSEI 0 23.000 - 32.271 ppm 02/28/2025 5:58 AM EDT [facility] MICHELLE KRUSEI Not Detected 23.000 - 32.271 ppm 02/28/2025 5:58 AM EDT [facility] CHLAMYDIA TRACHOMATIS 0 23.000 - 31.467 ppm 02/28/2025 5:58 AM EDT [facility] CHLAMYDIA TRACHOMATIS Not Detected 23.000 - 31.467 ppm 02/28/2025 5:58 AM EDT [facility] GARDNERELLA VAGINALIS 0 19.961 - 24.689 ppm 02/28/2025 5:58 AM EDT [facility] GARDNERELLA VAGINALIS Not Detected 19.961 - 24.689 ppm 02/28/2025 5:58 AM EDT [facility] MEGASPHAERA (TYPES 1, 2) 0 19.961 - 24.689 ppm 02/28/2025 5:58 AM EDT [facility] MEGASPHAERA (TYPES 1, 2) Not Detected 19.961 - 24.689 ppm 02/28/2025 5:58 AM EDT [facility] NEISSERIA GONORRHOEAE 0 23.000 - 32.117 ppm 02/28/2025 5:58 AM EDT [facility] NEISSERIA GONORRHOEAE Not Detected 23.000 - 32.117 ppm 02/28/2025 5:58 AM EDT [facility] TRICHOMONAS VAGINALIS 0 23.000 - 32.119 ppm 02/28/2025 5:58 AM EDT [facility] TRICHOMONAS VAGINALIS Not Detected 23.000 - 32.119 ppm 02/28/2025 5:58 AM EDT [facility] MYCOPLASMA GENITALIUM 0 19.961 - 24.689 ppm 02/28/2025 5:58 AM EDT [facility] MYCOPLASMA GENITALIUM Not Detected 19.961 - 24.689 ppm 02/28/2025 5:58 AM EDT [facility] Tissue 02/27/2025 12:1 7 PM EDT 02/28/2025 1:32 AM EDT us Rodney Aguilar DO LAB BLOOD ORDERABLES Final Resul t [facility] [address] [place] [address] from Last 3 Months Insurance [address] ADMINISTRATIVE SERVICES
--- NOTE | 2025-04-17 10:46 | ECG_ITS ---
[facility] Test Date: 2025-04-17 Pat Name: WALTER SOSA Department: Room: - Gender: Female Computer Systems Manager: : 2000 Requested By: NADIA MENENDEZ Order Number: [id number] Reading MD: NAI LOBO Measurements Intervals [place] Rate: 73 P: 37 DE: 157 QRS: 34 QRSD: 85 T: 36 QT: 357 QTc: 394 Interpretive Statements SINUS RHYTHM No previous ECG available for comparison Electronically Signed On 04-17-2025 11:11:40 EDT by NAI LOBO
[2025-04-17 11:46] LABS: Hematocrit 40.9 % (36.0-48.0); Hemoglobin 13.8 g/dL (12.0-16.0); Immature Granulocytes Abs Auto 0.03 10^3/uL (0.00-0.03); Immature Granulocytes Pct Auto 0.3 % (0.0-0.5); Lymphocytes Absolute Auto 3.3 10^3/uL (1.2-3.8); Mean Corpuscular HGB Conc 33.7 g/dL (29.9-35.2); Mean Corpuscular Hemoglobin 28.3 pg (26.7-34.0); Mean Corpuscular Volume 84.0 fL (81.0-99.0); Platelet Count 286 10^3/uL (150-450); Red Blood Count 4.87 10^6/uL (4.20-5.40); White Blood Count 10.3 10^3/uL (4.0-11.0)
[2025-04-17 12:36] LABS: Thyroid Stimulating Hormone 3.487 uIU/mL (0.358-3.740)
--- OUTSIDE RECORDS SUMMARY | 2025-04-17 12:59 | XMS_ITS | CCD ---
Demographics Address [address] [place] [address] Home Phone Mobile Phone Preferred Language en Marital Status Unknown Restorationism Affiliation Unknown Race White Ethnic Group Unknown Author Organization [facility] Care Team Providers Care Hand Thermal Cutter Name Role Phone LAUREN ., DR ZUNIGA Admitting Unavailable LAUREN ., DR ZUNIGA Attending Unavailable SEE, KIESHA Consulting Unavailable REQUEST, NONE LISTED Primary Care Unavaila ble LAUREN ., DR ZUNIGA Attending Unavailable LAUREN ., DR ZUNIGA Admitting Unavailable LAUREN ., DR ZUNIGA Consulting Unavailable REQUEST, DR NONE LISTED Primary Care Unavaila ble LAUREN ., DR ZUNIGA Admitting Unavailable LAUREN ., DR ZUNIGA Attending Unavailable REQUEST, DR NONE LISTED Primary Care Unavaila ble LAUREN ., DR ZUNIGA Admitting Unavailable LAUREN ., DR ZUNIGA Consulting Unavailable LAUREN ., DR ZUNIGA Attending Unavailable REQUEST, DR NONE LISTED Primary Care Unavaila ble GISELL II, RANDY Consulting Unavailable IFTIKHAR SMITH Consulting Unavailable LAUREN ., DR ZUNIGA Admitting Unavailable LAUREN ., DR ZUNIGA Consulting Unavailable LAUREN ., DR ZUNIGA Attending Unavailable REQUEST, DR NONE LISTED Primary Care Unavaila ble AGUBOSIM, SANDER Consulting Unavailable JUNGFIDENCIO, SHERIDAN Consulting Unavailable LAUREN ., DR ZUNIGA Admitting Unavailable LAUREN ., DR ZUNIGA Attending Unavailable REQUEST, NONE LISTED Primary Care Unavaila ble LAUREN ., DR ZUNIGA Admitting Unavailable LAUREN ., DR ZUNIGA Consulting Unavailable REQUEST, NONE LISTED Primary Care Unavaila ble LAUREN ., DR ZUNIGA Attending Unavailable LAUREN ., DR ZUNIGA Attending Unavailable LAUREN ., DR ZUNIGA Admitting Unavailable LAUREN ., DR ZUNIGA Consulting Unavailable REQUEST, DR NONE LISTED Primary Care Unavaila ble REQUEST, DR SILVESTRE LISTED Referring Unavaila ble ZIEBER, DR SARAHI Reagan Consulting Unavailable LAUREN ., DR ZUNIGA Admitting Unavailable LAUREN ., DR ZUNIGA Consulting Unavailable LAUREN ., DR ZUNIGA Attending Unavailable REQUEST, DR NONE LISTED Primary Care Unavaila valarie DINH ., ANA Attending Unavailable ALLEGRA ., ANA Admitting Unavailable REQUEST, NONE LISTED Primary Care Unavaila valarie DINH .ANA Consulting Unavailable PAY ., DR RECINOS Admitting Unavailable TANYA LEVINE V Consulting Unavailable PAY ., DR RECINOS Attending Unavailable REQUEST, NONE LISTED Primary Care Unavaila ble CARLOS ., MICHAEL PIERRE Consulting Unavailabl e VALERIY, TRIPP Consulting Unavailable Unavailable Primary Care Provider Unavailabl e NO PCP, NO PCP Primary Care Unavailable NO PCP, NO PCP Primary Care Unavailable IFTIKHAR RANDOLPH Attending Unavailable NO PCP, NO PCP Primary Care Unavailable NO PCP, NO PCP Primary Care Unavailable NAHOMY MURRAY Attending Unavailable NADIA AGUILAR Attending Unavailable NADIA AGUILAR Referring Unavailable NADIA AGUILAR Attending Unavailable Allergies Allergy Classification Reported Allergen(s) Allergy Type Date of Onset Reaction(s) Facility (1 source) Acetaminophen / oxyCODONE Drug Allergy [facility] Repository (1 source) Adhesive bandage Drug allergy (disorder) [facility] (3 sources) HYDROcodone; Translations: [HYDROCODONE] Drug Allergy 0 [facility]ository (1 source) Latex Drug allergy (disorder) [facility] (12 sources) Acetaminophen / HYDROcodone Drug Allergy [facility] (12 sources) Acetaminophen / oxyCODONE Drug Allergy [facility] (12 sources) HYDROcodone Drug Allergy 0 [facility] (12 sources) Latex Allergy to substance 3 [facility] (13 sources) oxyCODONE; Translations: [OXYCODONE] Drug Allergy 2 [facility] (12 sources) Wound Dressing Adhesive Drug Allergy [facility] Medications Current Medications Medication Drug Class(es) Dates Sig (Normalized) Sig (Original) acetaminophen 500 mg oral tablet (8 sources) take 2 tablets by mouth every four hours as needed for pain acetaminophen (Tylenol) 500 MG tablet Take 1,000 mg by mouth every 4 (four) hours if needed for mild pain Active ALPRAZolam 0.5 mg oral tablet (4 sources) Benzodiazepine Start: 05-28-20 ALPRAZolam (Xanax) 0.5 MG tablet doxycycline hyclate 100 mg oral capsule (3 sources) Tetracycline-clas s Drug Start: 02-28-20 End: 03-29-20 doxycycline (Vibramycin) 100 MG capsule Indications: PCB (post coital bleeding) , Pelvic pain Take 1 capsule (100 mg) by mouth in the morning and 1 capsule (100 mg) before bedtime. Take with at least 8 ounces (large glass) of water, do not lie down for 30 minutes after. 60 capsule 02/27/2025 03/29/2025 Active Ethinyl Estradiol / Ferrous fumarate / Norethindrone (7 sources) Estrogen Start: 02-28-20 End: 02-28-20 norethindrone-ethinyl estradiol (09/18) 1-20 MG-MCG tablet Indications: PCB (post coital bleeding) , Dysmenorrhea , Irregular menses Take 1 tablet by mouth Daily 28 tablet 11 02/27/2025 02/27/2026 Active ibuprofen 800 mg oral tablet (4 sources) Nonsteroidal Anti-inflammatory Drug Start: 10-03-19 ibuprofen 800 MG tablet medroxyPROGESTERone acetate 10 mg oral tablet (6 sources) Progestin Start: 04-13-20 take 1 tablet by mouth once daily medroxyPROGESTERone (Provera) 10 MG tablet Indications: Irregular menses Take 1 tablet (10 mg) by mouth Daily for 10 days 10 tablet 04/13/2024 Active 24 hr metFORMIN hydrochloride 500 mg extended release oral tablet (4 sources) Biguanide Start: 10-12-19 End: 01-10-20 take 1 tablet by mouth every twenty-four hours at mealtime metFORMIN XR (Glucophage-XR) 500 MG 24 hr tablet Indications: PCOS (polycystic ovarian syndrome) Take 1 tablet (500 mg) by mouth in the evening. Take with meals Do not crush, chew, or split. 30 tablet 2 10/12/2023 01/10/2024 Active metroNIDAZOLE 500 mg oral tablet (4 sources) Nitroimidazole Antimicrobial Start: 10-12-19 End: 10-19-19 24 take 1 tablet by mouth in the morning metroNIDAZOLE (Flagyl) 500 MG tablet Indications: Vaginal discharge Take 1 tablet (500 mg) by mouth in the morning and 1 tablet (500 mg) before bedtime. Do all this for 7 days. Do not drink alcohol while taking this medication. 14 tablet 0 10/12/2023 10/19/2023 Active ondansetron 4 mg disintegrating oral tablet (4 sources) Serotonin-3 Receptor Antagonist Start: 10-12-19 End: 11-11-19 take 1 tablet by mouth every six hours for nausea ondansetron ODT (Zofran-ODT) 4 MG disintegrating tablet Indications: PCOS (polycystic ovarian syndrome) Take 1 tablet (4 mg) by mouth every 6 (six) hours if needed for nausea or vomiting 30 tablet 2 10/12/2023 11/11/2023 Active Problems Active Problems Problem Classification Problem Date Documented Date Episodic/Chronic Abdominal pain (11 sources) Pelvic and perineal pain; Translations: [Unspecified abdominal pain] Onset: 09-29-2022 Episodic Anxiety disorders (1 source) Anxiety disorder, unspecified; Translations: [ANXIETY DISORDER UNSPECIFIED] Onset: 02-25-2022 Chronic Asthma (1 source) Unspecified asthma, uncomplicated; Translations: [UNSPECIFIED ASTHMA UNCOMPLICATED] Onset: 02-25-2022 Chronic Headache; including migraine (4 sources) Headache; including migraine; Translations: [HEADACHE UNSPECIFIED] Onset: 02-23-2022 Immunizations and screening for infectious disease (8 sources) Encounter for screening for infections with a predominantly sexual mode of transmission; Translations: [Contact with and (suspected) exposure to infections with a predominantly sexual mode of transmission] Onset: 01-16-2022 Episodic Inflammatory diseases of female pelvic organs (1 source) Chronic salpingitis; Translations: [CHRONIC SALPINGITIS] Onset: 10-06-2022 Chronic Menstrual disorders (9 sources) Irregular menstruation, unspecified; Translations: [Irregular periods] Onset: 01-21-2022 10-12-2023 Chronic Nonspecific chest pain (1 source) Chest pain Onset: 10-23-2024 Episodic Open wounds of extremities (1 source) Unspecified open wound, left foot, initial encounter; Translations: [Unspecified open wound, left foot, initial encounter] Onset: 12-10-2024 Episodic Other connective tissue disease (1 source) Foot pain Onset: 12-10-2024 Episodic Other endocrine disorders (1 source) Polycystic ovarian syndrome; Translations: [POLYCYSTIC OVARIAN SYNDROME] Onset: 04-24-2022 Chronic Other endocrine disorders (4 sources) Polycystic ovary syndrome; Translations: [Polycystic ovarian syndrome] 10-12-2023 Chronic Other female genital disorders (1 source) Unspecified dyspareunia; Translations: [UNSPECIFIED DYSPAREUNIA] Onset: 01-21-2022 Chronic Other female genital disorders (4 sources) Postcoital bleeding; Translations: [Postcoital and contact bleeding] 02-27-2025 Chronic Other female genital disorders (3 sources) Vaginal discharge; Translations: [Other specified noninflammatory disorders of vagina] Onset: 12-17-2024 10-12-2023 Episodic Residual codes; unclassified (1 source) Sleep apnea, unspecified; Translations: [SLEEP APNEA UNSPECIFIED] Onset: 02-25-2022 Chronic Substance-related disorders (1 source) Nicotine dependence, cigarettes, uncomplicated; Translations: [NICOTINE DEPEND CIGARETTES UNCOMP] Onset: 04-24-2022 Chronic Unclassified (1 source) CONTACT W/AND (SUSP) EXPOS COVID-19; Translations: [CONTACT W/AND (SUSP) EXPOS COVID-19] Onset: 04-17-2022 Unclassified (1 source) Painful Urination Onset: 12-17-2024 Unclassified (1 source) Ear Pain, Congestion, Vomitting Onset: 01-12-2024 Urinary tract infections (1 source) Acute cystitis without hematuria; Translations: [Acute cystitis without hematuria] Onset: 12-17-2024 Episodic Past or Other Problems Problem Classification Problem Date Documented Date Episodic/Chronic Inflammatory diseases of female pelvic organs (1 source) Female pelvic inflammatory disease, unspecified; Translations: [FE PELVIC INFLAMMATORY DISEASE UNS] Onset: 10-06-2022 Episodic Other aftercare (1 source) Other superintendent terminal (current) drug therapy; Translations: [OTH BRICK LOADER CURRENT DRUG THERAPY] Onset: 02-25-2022 Episodic Other endocrine disorders (4 sources) Endocrine disorder, unspecified; Translations: [ENDOCRINE DISORDER UNSPECIFIED] Onset: 01-16-2022 Episodic Other female genital disorders (5 sources) Other specified noninflammatory disorders of vagina; Translations: [OTH SPEC NONINFLAMMATORY D/O VAGINA] Onset: 05-28-2022 Episodic Results Test Name Value Interpretation Reference Range Facility ECG 12-LEADon 04-17-[address] [address] Electrocardiograph Report Signed Patient: WALTER SOSA MR#: [id number] : 2000 Acct:[id number] Age/Sex: 24 / F ADM Date: 04/17/25 Loc: PST Attending Dr: Nadia Aguilar D.O. Ordering Physician: Nadia Aguilar D.O. Date of Service: 04/17/25 Procedure(s): ECG 12 lead Accession Number(s): [id number] cc: [facility] Test Date: 2025-04-17 Pat Name: WALTER SOSA Department: Room: - Gender: Female Rehab Therapist: : 2000 Requested By: NADIA AGUILAR Order Number: [id number] Reading MD: MONSTER REZA Measurements Intervals [place] Rate: 73 P: 37 NM: 157 QRS: 34 QRSD: 85 T: 36 QT: 357 QTc: 394 Interpretive Statements SINUS RHYTHM No previous ECG available for comparison Electronically Signed On 04-17-2025 11:11:40 EDT by MONSTER REZA Dictated By: Monster Reza M.D. Signed By: 04/17/25 1111 DD/ 0850 TD/TT: Explosive Man: [facility] Radiology, Radiologist, - 04/17/2025 [place] [address] Electrocardiograph Report Signed Patient: WALTER SOSA MR#: [id number] : 2000 Acct:[id number] Age/Sex: 24 / F ADM Date: 04/17/25 Loc: PST Attending Dr: Nadia Aguilar D.O. Ordering Physician: Nadia Aguilar D.O. Date of Service: 04/17/25 Procedure(s): ECG 12 lead Accession Number(s): [id number] cc: [facility] Test Date: 2025-04-17 Pat Name: WALTER SOSA Department: Room: - Gender: Female Rehab Therapist: : 2000 Requested By: NADIA LAUREN Order Number: [id number] Reading MD: MONSTER REZA Measurements Intervals [place] Rate: 73 P: 37 NM: 157 QRS: 34 QRSD: 85 T: 36 QT: 357 QTc: 394 Interpretive Statements SINUS RHYTHM No previous ECG available for comparison Electronically Signed On 04-17-2025 11:11:40 EDT by MONSTER REZA Dictated By: Monster Reza M.D. Signed By: 04/17/25 1111 DD/ 0850 TD/TT: Explosive Man: [facility] Radiology Study observation (narrative) [facility] ECG 12-LEADOrdered By: Radio Way[facility] Radiology on 04-17-2025 [facility] Work Phone: IGP,APTIMA HPV,AGE GDLNon AGE GDLN ACOG TESTING Note . [facility] Comment on above: TESTS RESULT FLAG UN ITS REF RANGE LAB Clinician Provided Cytology Information Source.............Cervix;Endocervix No. of containers..01 ThinPrep Vial Age Algo ACOG Marialuisa... -26 09 FLAG LEGEND: L-Low Normal,H-High Normal,LL-Alert Low,HH-Alert High <-Panic Low,>-Panic High,A-Abnormal,AA-Critical Abnormal Performed at: 01 =G [facility] [address] [address] Kizzy Bonilla MD, IGP, RFX APTIMA HPV ASCU Note . [facility] Comment on above: TESTS RESULT FLAG UN ITS REF RANGE LAB DIAGNOSIS: 02 NEGATIVE FOR INTRAEPITHELIAL LESION OR MALIGNANCY. Specimen adequacy: 02 Satisfactory for evaluation. Endocervical and/or squamous metaplastic cells (endocervical component) are present. Performed by: 02 So Mcle[facility], Electrical Appliance Repairer ([facility]) . 02 Note: Note 02 The Pap [...] <-Panic Low,>-Panic High,A-Abnormal,AA-Critical Abnormal Performed at: [address] [facility] [address] [address] Kizzy Bonilla MD, Performed at: =G - [facility] [id number] Australian Rules Footballer: Kizzy Bonilla MD, Phone: [phone] Performed at: [address] [id number] Australian Rules Footballer: Kizzy Bonilla MD, Phone: [phone] [facility]SPATULA CERVIX ENDOCERVIX [facility] US PELVIC COMPLETE W/ TVon 0 04-02-2025 US PELVIC COMPLETE W/ TV FINDINGS: Uterus 6.9 x 3.4 x 4.9 [...] BY: ELECTRONICALLY SIGNED BY: Sergio Tran MD Normal Not Available Comment on above: Order Comment: US PE LVIS-TRANSVAG IF INDICATED No LMP recorded. RECURRENT VAGINITIS (HTRX)on 02-28-2025 ATOPOBIUM VAGINAE 28.669 Abnormal [facility] ATOPOBIUM VAGINAE Detected Abnormal [facility] BVAB 2,3 (BACTERIAL VAGINOSIS ASSOCIATED BACTERIA 2, 3); MOBILUNCUS SPP 0 [facility] Healthcare BVAB 2,3 (BACTERIAL VAGINOSIS ASSOCIATED BACTERIA 2, 3); MOBILUNCUS SPP Not detected [facility] LISA ALBICANS, PARAPSILOSIS, TROPICALIS 0 [facility] LISA ALBICANS, PARAPSILOSIS, TROPICALIS Not detected [facility] LISA GLABRATA 0 [facility] LISA GLABRATA Not detected [facility] LISA KRUSEI [facility] Not detected [facility] CHLAMYDIA TRACHOMATIS 0 [facility] CHLAMYDIA TRACHOMATIS Not detected [facility] GARDNERELLA VAGINALIS 0 [facility] GARDNERELLA VAGINALIS Not detected [facility] Interpretation and review of laboratory results Abnormal [facility] MEGASPHAERA (TYPES 1, 2) 0 [facility] MEGASPHAERA (TYPES 1, 2) Not detected [facility] MYCOPLASMA GENITALIUM 0 [facility] MYCOPLASMA GENITALIUM Not detected [facility] NEISSERIA GONORRHOEAE 0 [facility] NEISSERIA GONORRHOEAE Not detected [facility] TRICHOMONAS VAGINALIS 0 [facility] TRICHOMONAS VAGINALIS Not detected [facility] CBC AND AUTO DIFFon 12-17- 25 ABSOLUTE BASOPHIL 0.0 X10E9/L Normal 0.0-0.2 [facility] Comment on above: Performed By: #### C BCA, CMP #### [facility] ([id number]) [address] [place] [address] ABSOLUTE NEUTROPHIL 7.1 X10E9/L High 1.5-6.6 [facility] Comment on above: Performed By: #### C DAVID, CMP #### [facility] ([id number]) [address] [place] [address] Basophils/100 WBC (Bld) 0.2 % Normal [facility] Comment on above: Performed By: #### C DAVID, CMP #### [facility] ([id number]) [address] [place] [address] Eosinophils (Bld) [#/Vol] 0.1 10*3/uL Normal 0.0-0.4 [facility] Comment on above: Performed By: #### C DAVID, CMP #### [facility] ([id number]) [address] [place] [address] Eosinophils/100 WBC (Bld) 1.2 % Normal [facility] Comment on above: Performed By: #### C DAVID, CMP #### [facility] ([id number]) [address] [place] [address] [place] [address] Erythrocyte distribution width (RBC) [Ratio] 13.8 % Normal 11.5-15.0 [facility] Comment on above: Performed By: #### C BCA, CMP #### [facility] ([id number]) [address] [place] [address] Hematocrit (Bld) [Volume fraction] 38.7 % Normal 35-47 [facility] Comment on above: Performed By: #### C BCA, CMP #### [facility] ([id number]) [address] [place] [address] Hemoglobin (Bld) [Mass/Vol] 13.4 g/dL Normal 11.7-15.5 [facility] Comment on above: Performed By: #### C DAVID, CMP #### [facility] ([id number]) [address] [place] [address] Lymphocytes (Bld) [#/Vol] 2.6 10*3/uL Normal 1.0-3.5 [facility] Comment on above: Performed By: #### C DAVID, CMP #### [facility] ([id number]) [address] [place] [address] Lymphocytes/100 WBC (Bld) 24.5 % Normal [facility] Comment on above: Performed By: #### C DAVID, CMP #### [facility] ([id number]) [address] [place] [address] MCH (RBC) [Entitic mass] 29.1 pg Normal 27-34 [facility] Comment on above: Performed By: #### C DAVID, CMP #### [facility] ([id number]) [address] [place] [address] MCHC (RBC) [Mass/Vol] 34.7 g/dL Normal 32-36 [facility] Comment on above: Performed By: #### C DAVID, CMP #### [facility] ([id number]) [address] [place] [address] MCV (RBC) [Entitic vol] 84 fL Normal 80-100 [facility] Comment on above: Performed By: #### C BCA, CMP #### [facility] ([id number]) [address] [place] [address] Monocytes (Bld) [#/Vol] 0.8 10*3/uL Normal 0-0.9 [facility] Comment on above: Performed By: #### C BCA, CMP #### [facility] ([id number]) [address] [place] [address] Monocytes/100 WBC (Bld) 7.1 % Normal [facility] Comment on above: Performed By: #### C BCA, CMP #### [facility] ([id number]) [address] [place] [address]774 Neutrophils/100 WBC (Bld) 67.0 % Normal [facility] Comment on above: Performed By: #### C BCA, CMP #### [facility] ([id number]) [address] [place] [address] Platelet mean volume (Bld) [Entitic vol] 8.7 fL Normal 7-12 [facility] Comment on above: Performed By: #### C BCA, CMP #### [facility] ([id number]) [address] [place] [address] Platelets (Bld) [#/Vol] 270 10*3/uL Normal 150-450 [facility] Comment on above: Performed By: #### C BCA, CMP #### [facility] ([id number]) [address] [place] [address] 50003 RBC COUNT 4.61 X10E12/L Normal 3.80-5.20 [facility] Comment on above: Performed By: #### C BCA, CMP #### [facility] ([id number]) [address] [place] [address] 20191 WBC (Bld) [#/Vol] 10.6 10*3/uL Normal 4.0-11.0 [facility] Comment on above: Performed By: #### C BCA, CMP #### [facility] ([id number]) [address] [place] [address] CHLAMYDIA/GC BY PCRon 2024 CHLAMYDIA/GC BY PCR SPECIMEN SOURCE URNE CHLAMYDIA DNA(PCR) Negative (qualifier value) Chlamydia trachomatis not detected by nucleic acid amplification. This does not exclude the possibility of infection because results are dependent on adequate specimen collection. GONORRHOEAE DNA(PCR) Negative (qualifier value) Neisseria gonorrhoeae not detected by nucleic acid amplification. This does not exclude the possibility of infection because results are dependent on adequate specimen collection. Normal [facility] Comment on above: Performed By: #### 2 106-3 #### [facility] ([id number]) [address] [place] [address] COMPREHENSIVE METABOLIC PANE Reggie 12-17-2024 Albumin [Mass/Vol] 3.8 g/dL Normal 3.2-5.3 [facility] Comment on above: Performed By: #### C BCA, CMP #### [facility] ([id number]) [address] [place] [address] 12498 ALP [Catalytic activity/Vol] 98 U/L Normal 39-130 [facility] Comment on above: Performed By: #### C BCA, CMP #### [facility] ([id number]) [address] [place] [address] 57748 ALT [Catalytic activity/Vol] 25 U/L Normal 0-31 [facility] Comment on above: Performed By: #### C BCA, CMP #### [facility] ([id number]) [address] [place] [address] 08657 Anion gap [Moles/Vol] 8 mmol/L Normal 5-15 [facility] Comment on above: Performed By: #### C BCA, CMP #### [facility] ([id number]) [address] [place] [address] 53677 AST [Catalytic activity/Vol] 17 U/L Normal 0-41 [facility] Comment on above: Performed By: #### C BCA, CMP #### [facility] ([id number]) [address] [place] [address] 32423 Bilirubin [Mass/Vol] 0.8 mg/dL Normal 0.3-1.2 [facility] Comment on above: Performed By: #### C BCA, CMP #### [facility] ([id number]) [address] [place] [address] 09570 Calcium [Mass/Vol] 8.6 mg/dL Normal 8.5-10.5 [facility] Comment on above: Performed By: #### C BCA, CMP #### [facility] ([id number]) [address] [place] [address] 48217 Chloride [Moles/Vol] 105 mmol/L Normal 98-109 [facility] Comment on above: Performed By: #### C BCA, CMP #### [facility] ([id number]) [address] [place] [address] 19548 CO2 [Moles/Vol] 25 mmol/L Normal 22-32 [facility] Comment on above: Performed By: #### C BCA, CMP #### [facility] ([id number]) [address] [place] [address] 65649 Creatinine [Mass/Vol] 0.72 mg/dL Normal 0.40-1.00 [facility] Comment on above: Result Comment: METH OD TRACEABLE TO IDMS STANDARD Performed By: #### C BCA, CMP #### [facility] ([id number]) [address] [place] [address] 75551 eGFR (CKD-EPI) NON-RACE DEPENDENT >90 Normal >59 [facility] Comment on above: Result Comment: Reported eGFR is based on the CKD-EPI 2020 equation that does not use a race coefficient. Performed By: #### C BCA, CMP #### [facility] ([id number]) [address] [place] [address] 35586 Glucose [Mass/Vol] 104 mg/dL High 65-99 [facility] Comment on above: Performed By: #### C BCA, CMP #### [facility] ([id number]) [address] [place] [address] 87648 Potassium [Moles/Vol] 3.9 mmol/L Normal 3.5-5.0 [facility] Comment on above: Performed By: #### C BCA, CMP #### [facility] ([id number]) [address] [place] [address] 47888 Protein [Mass/Vol] 7.3 g/dL Normal 6.0-8.0 [facility] Comment on above: Performed By: #### C BCA, CMP #### [facility] ([id number]) [address] [place] [address] 47249 Sodium [Moles/Vol] 138 mmol/L Normal 134-146 [facility] Comment on above: Performed By: #### C BCA, CMP #### [facility] ([id number]) [address] [place] [address] 12313 Urea nitrogen [Mass/Vol] 13 mg/dL Normal 5-23 [facility] Comment on above: Performed By: #### C BCA, CMP #### [facility] ([id number]) [address] [place] [address] ABDOMEN AND PELVIS WO CON Ton 12-17-2024 CT ABDOMEN AND PELVIS WO CONT CT ABDOMEN AND PELVIS WO CONT STUDY: Abdomen and pelvis CT without intravenous contrast 12/17/2024. CLINICAL HISTORY: Abdominal pain. Abdominal pain radiating to back. Bilateral flank pain. Kidney stone COMPARISON: 10/23/2024 TECHNIQUE: Abdomen and pelvis CT was performed without intravenous contrast utilizing 5 mm axial reconstructions with coronal and sagittal reformatted images. Automated exposure control was utilized. FINDINGS: ABDOMEN: No pleural or pericardial effusion at the lung bases. No lower lung consolidation. No abdominal ascites. Noncontrast assessment of the liver, adrenal glands, pancreas is stable. Stable indeterminate splenic lesion measuring 3.7 cm. Aorta is normal caliber. Small bowel nondilated. Appendix is unremarkable. No enlarged mesenteric or retroperitoneal lymph nodes. No renal collecting system dilatation. No renal or ureteral calculi. Scattered sigmoid colonic diverticula. PELVIS: No free pelvic fluid. No enlarged pelvic lymph nodes. Urinary bladder is decompressed. No vertebral body height loss. IMPRESSION: 1. No obstructing renal or ureteral calculus. All CT scans at this facility use dose modulation, iterative reconstruction, and/or weight based dosing when appropriate to reduce radiation dose to as low as reasonably achievable. Finalized by Russell Rosa MD on 12/17/2024 12:05 PM Normal [facility] HCG ( test) Ql (U)o n 12-17-2024 Beta HCG ( test) Ql (U) Negative Normal [facility]G [facility] Comment on above: Performed By: #### 2 106-3 #### [facility] ([id number]) [address] [place] [address] URN MACROSCOPIC NURon 2024 BILIRUBIN KALA Negative Normal [facility] Comment on above: Performed By: #### N UM #### [facility] ([id number]) [address] [place] [address] 05005 BLOOD/HGB KALA Large Abnormal [facility] Comment on above: Performed By: #### N UM #### [facility] ([id number]) [address] [place] [address]27[address] GLUCOSE KALA Negative Normal [facility] Comment on above: Performed By: #### N UM #### [facility] ([id number]) [address] [place] [address]3773 KETONES KALA Negative Normal [facility] Comment on above: Performed By: #### N UM #### [facility] ([id number]) [address] [place] [address] 98455 LEUKOCYTE ESTERASE KALA Small Abnormal [facility] Comment on above: Performed By: #### N UM #### [facility] ([id number]) [address] [place] [address] 07846 NITRITE KALA Negative Normal [facility] Comment on above: Performed By: #### N UM #### [facility] ([id number]) [address] [place] [address] 64739 PH KALA 7.0 Normal 5.0-8.5 [facility] Comment on above: Performed By: #### N UM #### [facility] ([id number]) [address] [place] [address] PROTEIN KALA >=300 Abnormal [facility] Comment on above: Performed By: #### N UM #### [facility] ([id number]) [address] [place] [address] 83749 SPECIFIC GRAVITY KALA 1.025 Normal 1.003-1.035 [facility] Comment on above: Performed By: #### N UM #### [facility] ([id number]) [address] [place] [address] 26515 UROBILINOGEN KALA 0.2 eu/dL Normal <1.1 [facility] Comment on above: Performed By: #### N UM #### [facility] ([id number]) [address] [place] [address] 45046 VAGINITIS PANEL PCRon 2024 VAGINITIS PANEL PCR BACT. VAGINOSIS DNA Detected (qualifier value) Qualitative results are reported based on detection and quantitation of targeted organism markers which include: Lactobacillus spp. (L. crispatus and L. jensenii), Gardnerella vaginalis, Atopobium vaginae, Bacterial Vaginosis Associated Bacteria-2 (BVAB-2) and Megasphaera-1 LISA SPECIES DNA Not detected (qualifier value) Lisa species not detected include: C. albicans, C. tropicalis, C. parapsilosis or C. dubliniensis LISA KRUSEI DNA Not detected (qualifier value) No Lisa krusei detected LISA GLABRATA DNA Not detected (qualifier value) No Lisa glabrata detected TRICHOMONAS VAG DNA Not detected (qualifier value) No Trichomonas vaginalis detected NOTE BD MAX Vaginal Panel has not been evaluated for patients under 18 years old. Results for these patients should be reviewed and assessed in accordance with clinical presentation to determine patient diagnosis. Normal [facility] Comment on above: Performed By: #### V PPCR #### [facility] ([id number]) [address], [address] [place] [address] CT ABDOMEN AND PELVIS WO CON Ton 10-23-2024 CT ABDOMEN AND PELVIS WO CONT CT ABDOMEN AND PELVIS WO CONT CT ABDOMEN AND PELVIS WO CONT: 10/23/2024 5:39 PM CLINICAL INFORMATION: ; Abdominal/flank pain, stone suspected COMPARISON: 05/04/2022 Procedure: Standard noncontrast CT of the abdomen and pelvis was performed. Coronal sagittal reformats were obtained All CT scans at this facility use dose modulation, iterative reconstruction, and/or weight based dosing when appropriate to reduce radiation dose to as low as reasonably achievable. FINDINGS: The lower chest is normal. Within the resolution of noncontrast technique: The liver, pancreas, adrenal glands, gallbladder, and kidneys are normal. Redemonstration of a 3.7 cm hypodense structure within the superior aspect of the spleen, unchanged compared to prior. No free fluid or free air. The small bowel and colon are without evidence of obstruction or acute inflammatory change. The appendix is normal. Scattered diverticula along the sigmoid colon. No definite evidence of diverticulitis. There are scattered mesenteric root nodes which are likely reactive. No free fluid or free air. Aorta and IVC are within normal limits within the resolution of noncontrast technique. No acute osseous abnormalities. IMPRESSION: No acute abdominopelvic abnormalities within the resolution of noncontrast CT. Finalized by Russell Garcia on 10/23/2024 6:24 PM Normal [facility] HCG ( test) Ql (U)o n 10-23-2024 Beta HCG ( test) Ql (U) Negative Normal [facility] Comment on above: Performed By: #### 2 106-3 #### [facility] ([id number]) [address] [place] [address] [place] [address] URN MACROSCOPIC NURon 2024 BILIRUBIN KALA Negative Normal [facility] Comment on above: Performed By: #### N UM #### [facility] ([id number]) [address] [place] [address] [place] [address] BLOOD/HGB KALA Large Abnormal [facility] Comment on above: Performed By: #### N UM #### [facility] ([id number]) [address] [place] [address] [place] [address] GLUCOSE KALA Negative Normal [facility] Comment on above: Performed By: #### N UM #### [facility] ([id number]) [address] [place] [address] [place] [address] KETONES KALA Negative Normal [facility] Comment on above: Performed By: #### N UM #### [facility] ([id number]) [address] [place] [address], [place] [address] LEUKOCYTE ESTERASE KALA Negative Normal [facility] Comment on above: Performed By: #### N UM #### [facility] ([id number]) [address] [place] [address] [place] [address] NITRITE KALA Negative Normal [facility] Comment on above: Performed By: #### N UM #### [facility] ([id number]) [address] [place] [address] [place] [address] PH KALA 5.5 Normal 5.0-8.5 [facility] Comment on above: Performed By: #### N UM #### [facility] ([id number]) [address] [place] [address] [place] [address] PROTEIN KALA Trace Abnormal [facility] Comment on above: Performed By: #### N UM #### [facility] ([id number]) [address] [facility] [place] [address] SPECIFIC GRAVITY KALA >=1.030 Normal 1.003-1.035 [facility] Comment on above: Performed By: #### N UM #### [facility] ([id number]) [address] [place] [address], [place] [address] UROBILINOGEN KALA 0.2 eu/dL Normal <1.1 [facility] Comment on above: Performed By: #### N UM #### [facility] ([id number]) [address] [place] [address] URETHRITIS/DISCHARGE PLUS VA GINITIS (HTRX)on 10-13-2023 ATOPOBIUM VAGINAE 0 [facility] ATOPOBIUM VAGINAE Not detected [facility] BVAB 2,3 (BACTERIAL VAGINOSIS ASSOCIATED BACTERIA 2, 3); MOBILUNCUS SPP 0 [facility] BVAB 2,3 (BACTERIAL VAGINOSIS ASSOCIATED BACTERIA 2, 3); MOBILUNCUS SPP Not detected [facility] LISA ALBICANS, PARAPSILOSIS, TROPICALIS 0 [facility] LISA ALBICANS, PARAPSILOSIS, TROPICALIS Not detected [facility] LISA GLABRATA 0 [facility] a lthcare LISA GLABRATA Not detected [facility] LISA [facility]USEI 0 [facility] LISA KRUSEI [facility] CHLAMYDIA TRACHOMATIS 0 [facility] CHLAMYDIA TRACHOMATIS Not detected [facility] GARDNERELLA VAGINALIS 0 [facility] GARDNERELLA VAGINALIS Not detected [facility] MEGASPHAERA (TYPES 1, 2) 0 [facility] MEGASPHAERA (TYPES 1, 2) Not detected [facility] MYCOPLASMA GENITALIUM 0 [facility] MYCOPLASMA GENITALIUM Not detected [facility] NEISSERIA GONORRHOEAE 0 [facility] NEISSERIA GONORRHOEAE Not detected [facility] TRICHOMONAS VAGINALIS 0 [facility] TRICHOMONAS VAGINALIS Not detected [facility] Healthcare [facility] Healthcar e MLR HEMOGLOBIN A1Con 024 Glucose [Mass/Vol] 105 mg/dL [facility] HbA1c (Bld) [Mass fraction] 5.3 % 4.5 - 6.2 % [facility] Comment on above: ADA RECOMMENDED LIMI T 4.0 - 6.0 ADA THERAPEUTIC TARGET < 7.0 ACTION SUGGESTED > 7.0 [facility] CBC AUTO DIFFon 10-02-2022 BASO # 0.0 103/ul Normal 0.0-0.1 [facility] Comment on above: Performed By: #### C BC #### [facility] [address] [address] [address] Alicia Drake Basophils/100 WBC (Bld) 0.3 % Normal 0.2-2.0 [facility] Comment on above: Performed By: #### C BC #### [facility] [address] [address] [address] Alicia Drake EO # 0.1 103/ul Normal 0.0-0.7 [facility] Comment on above: Performed By: #### C BC #### [facility] [address] [place] [address] Dr. Alicia Drake Eosinophils/100 WBC (Bld) 1.2 % Normal 0.9-7.0 [facility] Comment on above: Performed By: #### C BC #### [facility] [address] [place] [address] Dr. Alicia Drake Erythrocyte distribution width (RBC) [Ratio] 12.1 % Normal 11.0-15.0 [facility] Comment on above: Performed By: #### C BC #### [facility] [address] [place] [address] Dr. Alicia Drake Hematocrit (Bld) [Volume fraction] 42.3 % Normal 36.0-48.0 [facility] Comment on above: Performed By: #### C BC #### [facility] [address] [address] [address] Alicia Drake Hemoglobin (Bld) [Mass/Vol] 14.4 g/dL Normal 12.0-16.0 [facility] Comment on above: Performed By: #### C BC #### [facility] [address] [place] [address] Dr. Alicia Drake IG # 0.03 10e3/ul Normal 0.00-0.03 [facility] Comment on above: Performed By: #### C BC #### [facility] [address] [place] [address] Dr. Alicia Drake IG % 0.3 % Normal 0.0-0.5 [facility] Comment on above: Performed By: #### C BC #### [facility] [address] [place] [address] Dr. Alicia Drake LYMPH # 4.4 103/ul Critically high 1.2-3.8 [facility] Comment on above: Performed By: #### C BC #### [facility] [address] [place] [address] Dr. Alicia Drake Lymphocytes/100 WBC (Bld) 36.9 % Normal 20.5-60.0 [facility] Comment on above: Performed By: #### C BC #### [facility] [address] [place] [address] Dr. Alicia Drake MANUAL DIFF REQ NO Normal [facility] Comment on above: Performed By: #### C BC #### [facility] [address] [place] [address] Dr. Alicia Drake MCH (RBC) [Entitic mass] 29.1 pg Normal 26.7-34.0 [facility] Comment on above: Performed By: #### C BC #### [facility] [address] [place] [address] Dr. Alicia Drake MCHC (RBC) [Mass/Vol] 34.0 g/dL Normal 29.9-35.2 [facility] Comment on above: Performed By: #### C BC #### [facility] [address] [place] [address] Dr. Alicia Drake MCV (RBC) [Entitic vol] 85.5 fL Normal 81.0-99.0 [facility] Comment on above: Performed By: #### C BC #### [facility] [address] [place] [address] Dr. Alicia Drake MONO # 0.9 103/ul Critically high 0.3-0.8 [facility] Comment on above: Performed By: #### C BC #### [facility] [address] [place] [address] Dr. Alicia Drake Monocytes/100 WBC (Bld) 7.3 % Normal 1.7-12.0 [facility] Comment on above: Performed By: #### C BC #### [facility] [address] [place] [address] Dr. Alicia Drake NEUT # 6.5 103/ul Normal 1.4-6.5 [facility] Comment on above: Performed By: #### C BC #### [facility] [address] [place] [address] Dr. Alicia Drake Neutrophils/100 WBC (Bld) 56.1 % Normal 43.0-75.0 [facility] Comment on above: Performed By: #### C BC #### [facility] [address] [place] [address] Dr. Alicia Drake Platelet mean volume (Bld) [Entitic vol] 10.0 fL Normal 9.5-13.5 [facility] Comment on above: Performed By: #### C BC #### [facility] [address] [place] [address] Dr. Alicia Drake PLT 298 103/ul Normal 150-450 [facility] Comment on above: Performed By: #### C BC #### [facility] [address] [place] [address] Dr. Alicia Drake RBC 4.95 106/ul Normal 4.20-5.40 [facility] Comment on above: Performed By: #### C BC #### [facility] [address] [place] [address] Dr. Alicia Drake WBC 11.6 103/ul Critically high 4.0-11.0 [facility] Comment on above: Performed By: #### C BC #### [facility] [address] [place] [address] Dr. Alicia Drake PREG QUANT HCGon 10-02-2022 HCG QUANT 0 mIU/mL Normal [facility] Comment on above: Performed By: #### F NA #### [facility] [address] [place] [address] Dr. Alicia Drake HCG RANGE SEE BELOW Normal [facility] Comment on above: Result Comment: 5-50 0.2-1 WEEK 50-500 1-2 WEEKS 100-5,000 2-3 WEEKS 500-10,000 3-4 WEEKS 1,000-50,000 4-5 WEEKS 10,000-100,000 5-6 WEEKS 15,000-200,000 6-8 WEEKS 10,000-100,000 2-3 MONTHS Performed By: #### F NA #### [facility] [address] [place] [address] Dr. Alicia Drake CHLAMYDIA/GONOCOCCUS TRISH ( AB/URINE/PAPon 08-03-2022 Chlamydia trachomatis, RTISH Negative Normal Negative [facility] Comment on above: Performed By: #### C T/NGNA #### [facility] [address] [place] [address] Dr. Alicia Drake Neisseria gonorrhoeae, TRISH Negative Normal Negative [facility] Comment on above: Performed By: #### C T/NGNA #### [facility] [address] [place] [address] Dr. Alicia Drake VAGINITIS/VAGINOSIS DNA PROB Pedro 08-02-2022 Lisa species Negative Normal Negative [facility] Comment on above: Performed By: #### V AGINT #### [facility] [address] [place] [address] Dr. Alicia Drake Gardnerella vaginalis Negative Normal Negative [facility] Comment on above: Performed By: #### V AGINT #### [facility] [address] [place] [address] Dr. Alicia Drake Trichomonas vaginalis Negative Normal Negative [facility] Comment on above: Performed By: #### V AGINT #### [facility] [address] [place] [address] Dr. Alicia Drake VAGINITIS/VAGINOSIS DNA PROB Pedro 05-31-2022 Lisa species Negative Normal Negative [facility] Comment on above: Performed By: #### C BC #### [facility] [address] [place] [address] Dr. Alicia Drake Gardnerella vaginalis Positive Abnormal Negative [facility] Comment on above: Performed By: #### C BC #### [facility] [address] [address] [address] Alicia Drkae Trichomonas vaginalis Negative Normal Negative [facility] Comment on above: Performed By: #### C BC #### [facility] [id number] Alicia Drake FINE NEEDLE ASPIRATION CYTOL OGYon 05-15-2022 Diagnosis Comment Normal [facility] Comment on above: Result Comment: RIGH T HYDRO SALPINX FLUID NEGATIVE FOR MALIGNANT CELLS. ESSENTIALLY ACELLULAR SPECIMEN. CELLULAR DEGENERATION IS PRESENT. Performed By: #### F NA #### [facility] [address] [place] [address] Dr. Alicia Drake Gross description Comment Normal [facility] Comment on above: Result Comment: 2ML, WHITE, CLOUDY /LCS 04/21/2022 1333 Local Performed By: #### F NA #### [facility] [address] [place] [address] Dr. Alicia Drake Performed By Comment Normal [facility] Comment on above: Result Comment: Kiarra Farrell, Medical Technician Assistant Performed By: #### F NA #### [facility] [address] [place] [address] Dr. Alicia Drake Signed Out By Comment Normal [facility] Comment on above: Result Comment: Nakita Cid MD, Pathologist Performed By: #### F NA #### [facility] [address] [place] [address] Dr. Alicia Drake Source Comment Normal [facility] Comment on above: Result Comment: RT H YDRO SALPUNX Performed By: #### F NA #### [facility] [address] [place] [address] Dr. Alicia Drake HCG-BETA SUBUNIT QUANTon hCG,Beta Subunit,Qnt,Serum <1 Normal [facility] Comment on above: Result Comment: Fema le (Non-) 0 - 5 (Postmenopausal) 0 - 8 . Female () Weeks of Gestation 3 6 - 71 4 10 - 750 5 718 - 2102 6 022 - 21946 7 2555 -[phone] 8 23461 -272270 9 37189 -595352 99748 -723017 12 42373 -025916 14 82523 - 45054 15 34824 - 25629 16 4267 - 27042 17 4302 - 03158 18 4786 - 77351 Erik ECLIA methodology Performed By: #### H CGSUB #### [facility] [address] [place] [address] Dr. Alicia Drake CBC AUTO DIFFon 04-15-2022 BASO # 0.0 103/ul Normal 0.0-0.1 [facility] Comment on above: Performed By: #### C BC #### [facility] [address] [place] [address] Dr. Alicia Drake Basophils/100 WBC (Bld) 0.2 % Normal 0.2-2.0 [facility] Comment on above: Performed By: #### C BC #### [facility] [address] [place] [address] Dr. Alicia Drake EO # 0.1 103/ul Normal 0.0-0.7 [facility] Comment on above: Performed By: #### C BC #### [facility] [address] [place] [address] Dr. Alicia Drake Eosinophils/100 WBC (Bld) 1.1 % Normal 0.9-7.0 [facility] Comment on above: Performed By: #### C BC #### [facility] [address] [place] [address] Dr. Alicia Drake Erythrocyte distribution width (RBC) [Ratio] 13.3 % Normal 11.0-15.0 [facility] Comment on above: Performed By: #### C BC #### [facility] [address] [place] [address] Dr. Alicia Drake Hematocrit (Bld) [Volume fraction] 42.7 % Normal 36.0-48.0 [facility] Comment on above: Performed By: #### C BC #### [facility] [address] [place] [address] Dr. Alicia Drake Hemoglobin (Bld) [Mass/Vol] 14.1 g/dL Normal 12.0-16.0 [facility] Comment on above: Performed By: #### C BC #### [facility] [address] [place] [address] Dr. Alicia Drake IG # 0.04 10e3/ul Critically high 0.00-0.03 [facility] Comment on above: Performed By: #### C BC #### [facility] [address] [place] [address] Dr. Alicia Drake IG % 0.4 % Normal 0.0-0.5 [facility] Comment on above: Performed By: #### C BC #### [facility] [address] [place] [address] Dr. Alicia Drake LYMPH # 3.4 103/ul Normal 1.2-3.8 [facility] Comment on above: Performed By: #### C BC #### [facility] [address] [place] [address] Dr. Alicia Drake Lymphocytes/100 WBC (Bld) 31.9 % Normal 20.5-60.0 [facility] Comment on above: Performed By: #### C BC #### [facility] [address] [place] [address] Dr. Alicia Drake MANUAL DIFF REQ NO Normal [facility] Comment on above: Performed By: #### C BC #### [facility] [address] [place] [address] Dr. Alicia Drake MCH (RBC) [Entitic mass] 28.8 pg Normal 26.7-34.0 [facility] Comment on above: Performed By: #### C BC #### [facility] [address] [place] [address] Dr. Alicia Drake MCHC (RBC) [Mass/Vol] 33.0 g/dL Normal 29.9-35.2 [facility] Comment on above: Performed By: #### C BC #### [facility] [address] [place] [address] Dr. Alicia Drake MCV (RBC) [Entitic vol] 87.3 fL Normal 81.0-99.0 [facility] Comment on above: Performed By: #### C BC #### [facility] [address] [place] [address] Dr. Alicia Drake MONO # 0.9 103/ul Critically high 0.3-0.8 [facility] Comment on above: Performed By: #### C BC #### [facility] [address] [place] [address] Dr. Alicia Drake Monocytes/100 WBC (Bld) 8.9 % Normal 1.7-12.0 [facility] Comment on above: Performed By: #### C BC #### [facility] [address] [place] [address] Dr. Alicia Drake NEUT # 6.1 103/ul Normal 1.4-6.5 [facility] Comment on above: Performed By: #### C BC #### [facility] [address] [place] [address] Dr. Alicia Drake Neutrophils/100 WBC (Bld) 57.5 % Normal 43.0-75.0 [facility] Comment on above: Performed By: #### C BC #### [facility] [address] [place] [address] Dr. Alicia Drake Platelet mean volume (Bld) [Entitic vol] 10.4 fL Normal 9.5-13.5 [facility] Comment on above: Performed By: #### C BC #### [facility] [address] [place] [address] Dr. Alicia Drake PLT 265 103/ul Normal 150-450 [facility] Comment on above: Performed By: #### C BC #### [facility] [address] [place], [place] [id number] Dr. Alicia Drake RBC 4.89 106/ul Normal 4.20-5.40 [facility] Comment on above: Performed By: #### C BC #### [facility] [address] [place] [address] Dr. Alicia Drake WBC 10.5 103/ul Normal 4.0-11.0 [facility] Comment on above: Performed By: #### C BC #### [facility] [address] [place] [address] Dr. Alicia Drake Covid-19 PCR ([facility])on 03-30 SARS-CoV-2 (COVID-19) RNA TRISH+probe Ql (Unsp spec) Not detected Normal NOT DETECTED [facility] Comment on above: Result Comment: This test is not yet approved or cleared by the [place] FDA. When there are no FDA-approved or cleared tests available, and other criteria are met, FDA can make tests available under an emergency access mechanism called an Emergency Use Authorization (EUA). The EUA for this test is supported by the Curtain [employer] of Health and Human Service's (HHS's) declaration that circumstances exist to justify the emergency use of in vitro diagnostics for the detection and/or diagnosis of the virus that causes COVID-19. This EUA will remain in effect (meaning this test can be used) for the duration of the COVID-19 declaration justifying emergency of IVDs, unless it is terminated or revoked by FDA (after which the test may no longer be used). When diagnostic testing is negative, the possibility of a false negative should be considered in the context of a patient's recent exposures and the presence of clinical signs and symptoms consistent with SARS-CoV-2. Performed By: #### C VDTB #### [facility] [address] [place] [address] Dr. Alicia Drake CBC AUTO DIFFon 02-23-2022 BASO # 0.0 103/ul Normal 0.0-0.1 [facility] Comment on above: Performed By: #### C BC #### [facility] [address] [place] [address] Dr. Alicia Drake Basophils/100 WBC (Bld) 0.2 % Normal 0.2-2.0 [facility] Comment on above: Performed By: #### C BC #### [facility] [address] [place] [address] Dr. Alicia Drake EO # 0.1 103/ul Normal 0.0-0.7 [facility] Comment on above: Performed By: #### C BC #### [facility] [address] [place] [address] Dr. Alicia Drake Eosinophils/100 WBC (Bld) 1.0 % Normal 0.9-7.0 [facility] Comment on above: Performed By: #### C BC #### [facility] [address] [place] [address] Dr. Alicia Drake Erythrocyte distribution width (RBC) [Ratio] 12.9 % Normal 11.0-15.0 [facility] Comment on above: Performed By: #### C BC #### [facility] [address] [place] [address] Dr. Alicia Drake Hematocrit (Bld) [Volume fraction] 41.3 % Normal 36.0-48.0 [facility] Comment on above: Performed By: #### C BC #### [facility] [address] [place] [address] Dr. Alicia Drake Hemoglobin (Bld) [Mass/Vol] 13.8 g/dL Normal 12.0-16.0 [facility] Comment on above: Performed By: #### C BC #### [facility] [address] [place] [address] Dr. Alicia Drake IG # 0.04 10e3/ul Critically high 0.00-0.03 [facility] Comment on above: Performed By: #### C BC #### [facility] [address] [place] [address] Dr. Alicia Drake IG % 0.4 % Normal 0.0-0.5 [facility] Comment on above: Performed By: #### C BC #### [facility] [address] [place] [address] Dr. Alicia Drake LYMPH # 2.6 103/ul Normal 1.2-3.8 [facility] Comment on above: Performed By: #### C BC #### [facility] [address] [place] [address] Dr. Alicia Drake Lymphocytes/100 WBC (Bld) 27.6 % Normal 20.5-60.0 [facility] Comment on above: Performed By: #### C BC #### [facility] [address] [place] [address] Dr. Alicia Drake MANUAL DIFF REQ NO Normal [facility] Comment on above: Performed By: #### C BC #### [facility] [address] [place] [address] Dr. Alicia Drake MCH (RBC) [Entitic mass] 28.5 pg Normal 26.7-34.0 [facility] Comment on above: Performed By: #### C BC #### [facility] [address] [place] [address] Dr. Alicia Drake MCHC (RBC) [Mass/Vol] 33.4 g/dL Normal 29.9-35.2 [facility] Comment on above: Performed By: #### C BC #### [facility] [address] [place] [address] Dr. Alicia Drake MCV (RBC) [Entitic vol] 85.3 fL Normal 81.0-99.0 [facility] Comment on above: Performed By: #### C BC #### [facility] [address] [place] [address] Dr. Alicia Drake MONO # 0.6 103/ul Normal 0.3-0.8 [facility] Comment on above: Performed By: #### C BC #### [facility] [address] [place] [address] Dr. Alicia Drake Monocytes/100 WBC (Bld) 6.6 % Normal 1.7-12.0 [facility] Comment on above: Performed By: #### C BC #### [facility] [address] [place] [address] Dr. Alicia Drake NEUT # 6.1 103/ul Normal 1.4-6.5 [facility] Comment on above: Performed By: #### C BC #### [facility] [address] [place] [address] Dr. Alicia Drake Neutrophils/100 WBC (Bld) 64.2 % Normal 43.0-75.0 [facility] Comment on above: Performed By: #### C BC #### [facility] [address] [address] [address] Alicia Drake Platelet mean volume (Bld) [Entitic vol] 10.3 fL Normal 9.5-13.5 [facility] Comment on above: Performed By: #### C BC #### [facility] [address] [place] [address] Dr. Alicia Drake PLT 273 103/ul Normal 150-450 [facility] Comment on above: Performed By: #### C BC #### [facility] [address] [address] [address] Alicia Drake RBC 4.84 106/ul Normal 4.20-5.40 [facility] Comment on above: Performed By: #### C BC #### [facility] [address] [place] [address] Dr. Alicia Drake WBC 9.4 103/ul Normal 4.0-11.0 [facility] Comment on above: Performed By: #### C BC #### [facility] [address] [place] [address] Dr. Alicia Drake CRPon 02-23-2022 CRP 1.8 mg/dL Critically high <=1.0 [facility] Comment on above: Performed By: #### C BC #### [facility] [address] [place] [address] HEAD WO CONon 02-23-2022 CT HEAD WO CON EXAMINATION: CT HEAD WO CON HISTORY: HEADACHE COMPARISON: 04/01/2014 TECHNIQUE: CT examination of the head without IV contrast. Sagittal and coronal reconstructions were obtained. Dose reduction techniques were achieved by using automated exposure control and/or adjustment of mA and/or kV according to patient size and/or use of iterative reconstruction technique. FINDINGS: The ventricles are not enlarged, the lateral ventricles are symmetric and the third ventricles in the midline. The sylvian fissures and cortical sulci are unremarkable. There is no evidence of an intracranial hemorrhage, mass lesion or apparent acute infarct. No abnormality seen in the deep white matter. Benign calcifications are seen in the pineal complex. A small fluid collection is seen in the posterior fossa just to the left of the midline posteriorly, typical of a small arachnoid cyst. The cerebellum and visualized brainstem are intact. The visualized paranasal sinuses are clear. There is no apparent skull fracture. IMPRESSION: There is no evidence of an intracranial hemorrhage, mass lesion or apparent acute infarct. The paranasal sinuses are clear. Similar findings were noted in the prior study. Electronically authenticated by: TRIPP CROOKS Date: 2022-02-23 14:31 Normal [facility] PREG HCG QUALon 02-23-2022 , QUAL Negative Normal NEGATIVE [facility] Comment on above: Performed By: #### C BC #### [facility] [address] [place] [address] Dr. Alicia Drake PROF 14(COMP METB)on 022 Albumin [Mass/Vol] 3.6 g/dL Normal 3.4-5.0 [facility] Comment on above: Performed By: #### C BC #### [facility] [address] [place] [address] Dr. Alicia Drake Albumin/Globulin [Mass ratio] 1.0 {ratio} Normal [facility] Comment on above: Performed By: #### C BC #### [facility] [address] [place] [address] Dr. Alicia Drake ALP [Catalytic activity/Vol] 110 U/L Normal 46-116 [facility] Comment on above: Performed By: #### C BC #### [facility] [address] [place] [address] Dr. Alicia Drake ALT [Catalytic activity/Vol] 26 U/L Normal 14-59 [facility] Comment on above: Performed By: #### C BC #### [facility] [address] [place] [address] Dr. Alicia Drake Anion gap [Moles/Vol] 11.1 mmol/L Normal [facility] Comment on above: Performed By: #### C BC #### [facility] [address] [place] [address] Dr. Alicia Drake AST [Catalytic activity/Vol] 13 U/L Critically low 15-37 [facility] Comment on above: Performed By: #### C BC #### [facility] [address] [place] [address] Dr. Alicia Drake Bilirubin [Mass/Vol] 0.7 mg/dL Normal 0.2-1.0 [facility] Comment on above: Performed By: #### C BC #### [facility] [address] [address] [address] Alicia Drake Calcium [Mass/Vol] 8.8 mg/dL Normal 8.5-10.1 [facility] Comment on above: Performed By: #### C BC #### [facility] [address] [address] [address] Alicia Drake Chloride [Moles/Vol] 105 mmol/L Normal 98-107 [facility] Comment on above: Performed By: #### C BC #### [facility] [address] [place] [address] Dr. Alicia Drake CO2 [Moles/Vol] 28.7 mmol/L Normal 21.0-32.0 [facility] Comment on above: Performed By: #### C BC #### [facility] [address] [place] [address] Dr. Alicia Drake Creatinine [Mass/Vol] 0.82 mg/dL Normal 0.55-1.02 [facility] Comment on above: Performed By: #### C BC #### [facility] [address] [place] [address] Dr. Alicia Drake EGFR-AF GHANAIAN >60 Normal >=60 [facility] Comment on above: Performed By: #### C BC #### [facility] [address] [place] [address] Dr. Alicia Drake EGFR-NON AF GHANAIAN >60 Normal >=60 [facility] Comment on above: Performed By: #### C BC #### [facility] [address] [place] [address] Dr. Alicia Drake Globulin (S) [Mass/Vol] 3.7 g/dL Normal [facility] Comment on above: Performed By: #### C BC #### [facility] [address] [place] [address] Dr. Alicia Drake Glucose [Mass/Vol] 93 mg/dL Normal 74-[address] [facility] Comment on above: Performed By: #### C BC #### [facility] [address] [address] [address] Alicia Drake Potassium [Moles/Vol] 3.8 mmol/L Normal 3.5-5.1 [facility] Comment on above: Performed By: #### C BC #### [facility] [address] [address] [address] Alicia Drake Protein [Mass/Vol] 7.3 g/dL Normal 6.4-8.[address] [facility] Comment on above: Performed By: #### C BC #### [facility] [address] [address] [address] Alicia Drake Sodium [Moles/Vol] 141 mmol/L Normal 136-145 [facility] Comment on above: Performed By: #### C BC #### [facility] [address] [address] [address] Alicia Drake Urea nitrogen [Mass/Vol] 12.0 mg/dL Normal 7.0-18.0 [facility] Comment on above: Performed By: #### C BC #### [facility] [address] [address] [address] Alicia Drake Urea nitrogen/Creatinine [Mass ratio] 14.6 mg/mg Normal [facility] Comment on above: Performed By: #### C BC #### [facility] [address] [address] [address] Alicia Drake SED RATE [facility] 2021 SED RATE 21 mm/hr Critically high <=20 [facility] Comment on above: Performed By: #### F NA #### [facility] [address] [address] [address] Alicia Drake CHLAMYDIA/GONOCOCCUS TRISH ( AB/URINE/PAPon 01-19-2022 Chlamydia trachomatis, TRISH Negative Normal Negative [facility] Comment on above: Performed By: #### C T/NGNA #### [facility] [address] [address] [address] Alicia Drake Neisseria gonorrhoeae, TRISH Negative Normal Negative [facility] Comment on above: Performed By: #### C T/NGNA #### [facility] [address] [address] [address] Alicia Drake HEPATITIS PANEL, ACUTEon HBsAg Screen Negative Normal Negative [facility] Comment on above: Performed By: #### C BC #### [facility] [address] [address] [address] Alicia Drake HCV AB <0.1 Normal 0.0-0.9 [facility] Comment on above: Performed By: #### C BC #### [facility] [address] [address] [address] Alicia Drake Hep A Ab, IgM Negative Normal Negative [facility] Comment on above: Performed By: #### C BC #### [facility] [address] [address] [address] Alicia Drake Hep B Core Ab, IgM Negative Normal Negative [facility] Comment on above: Performed By: #### C BC #### [facility] [address] [address] [address] Alicia Drake Interpretation: Comment Normal [facility] Comment on above: Result Comment: Nega tive Not infected with HCV, unless recent infection is suspected or other evidence exists to indicate HCV infection. Performed By: #### C BC #### [facility] [address] [address] [address] Alicia Drake HIV 1 AND 2 WITH REFLEXon HIV Screen 4th Generation wRfx Non-Reactive Normal Non Reactive [facility] Comment on above: Result Comment: HIV Negative HIV-1/HIV-2 antibodies and HIV-1 p24 antigen were NOT detected. There is no laboratory evidence of HIV infection. Performed By: #### H IV12 #### [facility] [address] [place] [address] Dr. Alicia Drake PROGESTERONEon 01-17-2022 Progesterone 0.1 ng/mL Normal [facility] Comment on above: Result Comment: Foll icular phase 0.1 - 0.9 Luteal phase 1.8 - 23.9 Ovulation phase 0.1 - 12.0 First trimester 11.0 - 44.3 Second trimester 25.4 - 83.3 Third trimester 58.7 - 214.0 Postmenopausal 0.0 - 0.1 Performed By: #### P ROBERT #### [facility] [address] [place] [address] Dr. Alicia Drake RPR QUANTon 01-17-2022 Rapid Plasma Reagin, Quant Non-Reactive Normal NonRea<1:1 [facility] Comment on above: Result Comment: Plea se Note: This test does not meet current guidelines for screening and diagnosis of syphilis. This test is intended for following treatment response in patients being treated for syphilis infection. To screen for syphilis infection, a reflex cascade that includes both RPR and a treponema-specific assay should be utilized, such as Treponema pallidum (Syphilis) Screening Robert Lee (395744) or Rapid Plasma Reagin (RPR) Test With Reflex to Quantitative RPR and Confirmatory Treponema pallidum Antibodies (193771). Performed By: #### F NA #### [facility] [address] [place] [address] Dr. Alicia Drake PREG QUANT HCGon 01-16-2022 HCG QUANT <1 Normal [facility] Comment on above: Performed By: #### F NA #### [facility] [address] [place] [address] Dr. Alicia Drake HCG RANGE SEE BELOW Normal [facility] Comment on above: Result Comment: 5-50 0-1 WEEK 40-300 1-2 WEEKS 100-1,000 2-3 WEEKS 500-6,000 3-4 WEEKS 5,000-200,000 1-2 MONTHS 10,000-100,000 2-3 MONTHS 3,000-50,000 2ND TRIMESTER 1,000-50,000 3RD TRIMESTER Performed By: #### F NA #### [facility] [address] [place] [address] Dr. Alicia Drake US PELVIS TRANSVAGon 022 US PELVIS TRANSVAG EXAMINATION: US PELVIS TRANSVAG HISTORY: Dyspareunia COMPARISON: No relevant comparison available. TECHNIQUE: Transabdominal and transvaginal sonographic examination. FINDINGS: UTERUS: Small area of increased echogenicity within the posterior fundus, 2.5 cm in diameter favoring a leiomyoma. Uterus size: 6.9 x 3.9 x 3.1 cm. ENDOMETRIUM: Normal homogeneous appearance. Endometrial thickness: 5 mm RIGHT OVARY: Normal size and appearance. Duplex Doppler demonstrates normal waveform and flow; resistive index 0.6. Ovary size: 2.3 x 1.5 x 1.1 cm LEFT OVARY: Normal size and appearance. Duplex Doppler demonstrates normal waveform and flow; resistive index 0.5. Ovary size: 3.3 x 2.1 x 1.5 cm CUL-DE-SAC: Unremarkable. No significant free fluid. BLADDER: Unremarkable. OTHER: None. IMPRESSION: 1. No specific findings to account for patient's symptoms. 2. Likely incidental small uterine fundal leiomyoma. Electronically authenticated by: SARAHI HART Date: 2022-01-16 17:32 Normal [facility] VAGINITIS/VAGINOSIS DNA PROB Pedro 01-16-2022 Lisa species Negative Normal Negative [facility] Comment on above: Performed By: #### F NA #### [facility] [address] [address] [address] Alicia Drake Gardnerella vaginalis Positive Abnormal Negative [facility] Comment on above: Performed By: #### F NA #### [facility] [address] [address] [address] Alicia Drake Trichomonas vaginalis Negative Normal Negative [facility] Comment on above: Performed By: #### F NA #### [facility] [address] [address] [address] Alicia Drake Vital Signs Date Time Vital Sign Value Performing Clinician Faci lity 04-10-2025 10:14040 Body mass index (BMI) [Ratio] 49.4 kg/m2 [employer] Work Phone: [facility] 04-10-2025 10:14040 Body weight 130.54 kg [employer] Work Phone: [facility] 04-10-2025 10:14-040 Diastolic blood pressure 74 mm[Hg] [employer] Work Phone: [facility] 04-10-2025 10:14-0400 Systolic blood pressure 120 mm[Hg] Nadia Lauren DO Work Phone: [facility] 02-27-2025 10:14-0400 Body mass index (BMI) [Ratio] 48.79 kg/m2 Nadia Lauren DO Work Phone: [facility] 02-27-2025 10:14-0400 Body weight 128.94 kg Nadia Lauren DO Work Phone: [facility] 02-27-2025 10:14-0400 Diastolic blood pressure 90 mm[Hg] Nadia Lauren DO Work Phone: [facility] 02-27-2025 10:14-0400 Systolic blood pressure 122 mm[Hg] Nadia Lauren DO Work Phone: [facility] 10-12-2023 14:58-0500 Body mass index (BMI) [Ratio] 47.55 kg/m2 Ana RODRIGUEZ Work Phone: [facility] 10-12-2023 14:58-0500 Body weight 125.65 kg Ana RODRIGUEZ Work Phone: [facility] 10-12-2023 14:58-0500 Diastolic blood pressure 84 mm[Hg] Ana RODRIGUEZ Work Phone: [facility] 10-12-2023 14:58-0500 Systolic blood pressure 126 mm[Hg] Ana RODRIGUEZ Work Phone: [facility] Healthcare Encounters Encounter Date Encounter Type Care Provider Facility Start: 04-17-2025 End: 04-17-2025 Clinisync Result Encounter Nadia Lauren DO Work Phone: [facility] External Department Unsolicited Start: 04-17-2025 End: 04-17-2025 Clinisync Result Encounter Nadia Lauren DO Work Phone: [facility] External Department Unsolicited Start: 04-10-2025 End: 04-13-2025 Clinisync Result Encounter Nadia Lauren DO Work Phone: [facility] External Department Unsolicited Start: 04-10-2025 End: 04-13-2025 Clinisync Result Encounter Nadia Lauren DO Work Phone: [facility] External Department Unsolicited Start: 04-10-2025 End: 04-10-2025 Patient encounter procedure Nadia Lauren DO Work Phone: [facility] Work Phone: Start: 04-10-2025 End: 04-10-2025 Periodic preventive med est patient 18-39 yrs Nadia Lauren DO Work Phone: [facility] Comment on above: Pre-op examination; Pelvic pain; Dysmenorrhea; PCB (post coital bleeding); Well woman exam with routine gynecological exam; PCOS (polycystic ovarian syndrome) Start: 04-10-2025 End: 04-10-2025 Preprocedural examination done Nadia Lauren DO Work Phone: [facility] Healthcare Start: 04-10-2025 End: 04-10-2025 ambulatory NADIA LAUREN Not Available Start: 04-02-2025 End: 04-02-2025 ambulatory NADIA LAUREN Not Available Start: 02-27-2025 End: 02-27-2025 Bamboo flowsheet Nadia Lauren DO Work Phone: [facility] Start: 02-27-2025 End: 02-28-2025 Bamboo flowsheet Nadia Lauren DO Work Phone: [facility] Start: 02-27-2025 End: 02-28-2025 External Result Encounter Nadia Lauren DO Work Phone: [facility] External Department Unsolicited Start: 02-27-2025 End: 02-27-2025 Office outpatient visit 15 minutes Nadia Lauren DO Work Phone: [facility] Comment on above: PCB (post coital ble eding); Pelvic pain; Dysmenorrhea; Irregular menses Start: 02-27-2025 End: 02-27-2025 ambulatory NADIA LAUREN Not Available Start: 12-17-2024 End: 12-17-2024 Emergency department patient visit NO PCP NO PCP [facility] Start: 12-10-2024 End: 12-10-2024 Emergency department patient visit NO PCP NO PCP [facility] Start: 10-23-2024 End: 10-23-2024 Emergency department patient visit NO PCP NO PCP [facility] Start: 01-12-2024 End: 01-13-2024 Emergency department patient visit NO PCP NO PCP [facility] Start: 10-12-2023 End: 10-12-2023 Office outpatient visit 15 minutes Ana RODRIGUEZ Work Phone: [facility] Comment on above: Vaginal discharge; STD exposure; PCOS (polycystic ovarian syndrome); Irregular menses Start: 10-12-2023 Clinisync Result Encounter Ana RODRIGUEZ Work Phone: [facility] External Department Unsolicited Start: 10-12-2023 Clinisync Result Encounter Ana RODRIGUEZ Work Phone: [facility] External Department Unsolicited Start: 10-12-2023 External Result Encounter Ana RODRIGUEZ Work Phone: [facility] External Department Unsolicited Start: 10-02-2022 End: 10-02-[address] NADIA AGUILAR . Facility:[facility] Start: 09-30-[address] NADIA AGUILAR . Facili ty:[facility] Start: 09-29-2022 Encounter for other preprocedural examination DR NADIA AGUILAR . [facility] Start: 09-28-2022 End: 09-29-[address] NADIA AGUILAR . Facility: Start: 09-28-2022 End: 09-29-2022 Encounter for other preprocedural examination DR NADIA AGUILAR . Facility:[facility] Start: 07-30-2022 End: 07-30-2022 ambulatory ANA DNIH . Facility:[facility] Start: 05-28-2022 End: 05-28-[address] NADIA AGUILAR . Facility:[facility] Start: 04-17-2022 Encounter for preprocedural laboratory examination DR NADIA AGUILAR . [facility] Start: 04-17-2022 End: 04-17-[address] NADIA AGUILAR . Facility:[facility] Start: 04-15-2022 End: 04-16-[address] NADIA AGUILAR . Facility:[facility] Start: 04-15-2022 End: 04-16-2022 Encounter for preprocedural laboratory examination DR NADIA AGUILAR . Facility:[facility] Start: 02-23-2022 End: 02-23-[address] JORJE PALACIOS . Facility:[facility] Start: 01-16-2022 End: 01-17-[address] NADIA AGUILAR . Facility:[facility] Start: 01-14-2022 End: 01-14-[address] NADIA AGUILAR . Facility: Procedures Date Procedure Procedure Detail Performing Clinician Start: 04-17-2025 ECG 12-LEAD Nadia villagomez DO Work Phone: Start: 04-10-2025 IGP,APTIMA HPV,AGE GDLN Nadia Aguilar DO Work Phone: Start: 02-27-2025 RECURRENT VAGINITIS (HTRX) Nadia Aguilar DO Work Phone: Start: 10-12-2023 MLR HEMOGLOBIN A1C Ana RODRIGUEZ Work Phone: Start: 10-12-2023 URETHRITIS/DISCHARGE PLUS VAGINITIS (HTRX) Ana RODRIGUEZ Work Phone: Plan of Treatment Date Care Activity Detail Author Start: 05-10-2025 End: 05-10-2025 Patient encounter procedure 05/10/2025 11:20 AM EDT Office Visit JOE KOHLER [address] [facility] [place] [phone] Nadia Aguilar DO [address] [facility] [address] [place] [address] JOE KOHLER Start: 04-10-2025 End: 04-10-2026 DHEA DHEA Lab Routine PCOS (polycystic ovarian syndrome) Expected: 04/10/2025 (Approximate), Expires: 04/10/2026 [facility] Comment on above: Expected: 04/10/2025 (Approximate), Expires: 04/10/2026 Start: 04-03-2025 End: 04-03-2025 Patient encounter procedure 04/03/2025 10:40 AM EDT Office Visit [facility] [address] [place] [phone] Nadia Aguilar, DO [address] [place], [place] [id number] [facility] Start: 03-20-2025 End: 03-20-2025 Patient encounter procedure 03/20/2025 2:00 PM EDT Office Visit [facility] [address] [facility] [place] [address] Ana Dinh PA [address] [place] [address] [facility] Start: 03-13-2025 End: 03-13-2025 Professional / ancillary services management 03/13/2025 2:30 PM EDT Ancillary Procedure [facility] [address] [facility] [place] [address] [facility] Start: 02-27-2025 End: 08-30-2025 US Pelvis US Pelvis w/ TV Imaging Routine PCB (post coital bleeding) Pelvic pain Dysmenorrhea Irregular menses Expected: 02/27/2025, Expires: 08/30/2025 [facility] Work Phone: Comment on above: Expected: 02/27/2025 , Expires: 08/30/2025 Start: 02-27-2025 End: 02-27-2025 Patient encounter procedure 02/27/2025 10:00 AM EDT Office Visit [facility] [address] [facility] [place] [address] Nadia Aguilar, DO [address] [place], [place] [id number] Arrived [facility] Comment on above: Arrived Start: 11-03-2023 End: 11-03-2023 Patient encounter procedure 11/03/2023 3:10 PM EST Office Visit [facility] [address] [facility] [place] [phone] Nadia Aguilar DO [address] [facility] [place] [address] [facility] Start: 10-12-2023 End: 10-12-2024 DHEA DHEA Lab Routine PCOS (polycystic ovarian syndrome) Expected: 10/12/2023 (Approximate), Expires: 10/12/2024 [facility] Comment on above: Expected: 10/12/2023 (Approximate), Expires: 10/12/2024 Start: 10-12-2023 End: 10-12-2024 US for US PELVIS-TRANSVAG IF INDICATED Imaging Routine PCOS (polycystic ovarian syndrome) Expected: 10/12/2023 (Approximate), Expires: 10/12/2024 [facility] Comment on above: Expected: 10/12/2023 (Approximate), Expires: 10/12/2024 CBC W Auto Different ial panel - Blood CBC and differential Lab Routine PCOS (polycystic ovarian syndrome) Ordered: 10/12/2023 [facility] Comment on above: Ordered: 10/12/2023 CBC W Auto Different ial panel - Blood CBC and differential Lab Routine PCOS (polycystic ovarian syndrome) Ordered: 04/10/2025 [facility] Comment on above: Ordered: 04/10/2025 CHLAMYDIA TRACHOMATI S (GENITO/STI) CHLAMYDIA TRACHOMATIS (GENITO/STI) Lab Routine PCB (post coital bleeding) Pelvic pain Ordered: 02/27/2025 [facility] Comment on above: Ordered: 02/27/2025 Cytology Cervical or vaginal smear or scraping study Pap Smear Pathology and Cytology Routine Well woman exam with routine gynecological exam Ordered: 04/10/2025 [facility] Work Phone: Comment on above: Ordered: 04/10/2025 DHEA-sulfate DHEA-sulfate Lab Routine PCOS (polycystic ovarian syndrome) Ordered: 10/12/2023 [facility] Comment on above: Ordered: 10/12/2023 DHEA-sulfate DHEA-sulfate Lab Routine PCOS (polycystic ovarian syndrome) Ordered: 04/10/2025 [facility] Comment on above: Ordered: 04/10/2025 Follicle stimulating hormone Follicle stimulating hormone Lab Routine PCOS (polycystic ovarian syndrome) Ordered: 10/12/2023 [facility] Comment on above: Ordered: 10/12/2023 Follicle stimulating hormone Follicle stimulating hormone Lab Routine PCOS (polycystic ovarian syndrome) Ordered: 04/10/2025 [facility] Comment on above: Ordered: 04/10/2025 hCG, quantitative, hCG, quantitative, Lab Routine PCOS (polycystic ovarian syndrome) Ordered: 10/12/2023 [facility] Work Phone: Comment on above: Ordered: 10/12/2023 hCG, quantitative, hCG, quantitative, Lab Routine PCOS (polycystic ovarian syndrome) Ordered: 04/10/2025 [facility] Comment on above: Ordered: 04/10/2025 Hemoglobin A1c measurement Hemoglobin A1c Lab Routine PCOS (polycystic ovarian syndrome) Irregular menses Ordered: 10/12/2023 [facility] Comment on above: Ordered: 10/12/2023 Hemoglobin A1c/Hemoglobin.total in Blood Hemoglobin A1c Lab Routine Pelvic pain Dysmenorrhea PCB (post coital bleeding) Ordered: 04/10/2025 [facility] Comment on above: Ordered: 04/10/2025 Luteinizing hormone Luteinizing hormone Lab Routine PCOS (polycystic ovarian syndrome) Ordered: 10/12/2023 [facility] Comment on above: Ordered: 10/12/2023 Luteinizing hormone Luteinizing hormone Lab Routine PCOS (polycystic ovarian syndrome) Ordered: 04/10/2025 [facility] Comment on above: Ordered: 04/10/2025 Neisseria gonorrhoea e DNA [Presence] in Unspecified specimen by TRISH with probe detection Neisseria gonorrhea DNA probe, direct Lab Routine PCB (post coital bleeding) Pelvic pain Ordered: 02/27/2025 [facility] Comment on above: Ordered: 02/27/2025 SURESWAB(R) ADVANCED VAGINITIS PLUS, TMA SURESWAB(R) ADVANCED VAGINITIS PLUS, TMA Pathology and Cytology Routine PCB (post coital bleeding) Pelvic pain Ordered: 02/27/2025 [facility] Comment on above: Ordered: 02/27/2025 Thyrotropin [Units/volume] in Serum or Plasma TSH Lab Routine PCOS (polycystic ovarian syndrome) Ordered: 10/12/2023 [facility] Comment on above: Ordered: 10/12/2023 Thyrotropin [Units/volume] in Serum or Plasma TSH Lab Routine PCOS (polycystic ovarian syndrome) Ordered: 04/10/2025 [facility] Comment on above: Ordered: 04/10/2025 Thyroxine (T4) free [Mass/volume] in Serum or Plasma T4, free Lab Routine PCOS (polycystic ovarian syndrome) Ordered: 10/12/2023 [facility] Comment on above: Ordered: 10/12/2023 Thyroxine (T4) free [Mass/volume] in Serum or Plasma T4, free Lab Routine PCOS (polycystic ovarian syndrome) Ordered: 04/10/2025 [facility] Comment on above: Ordered: 04/10/2025 Payers Date Payer Category Payer Private Health Insurance [employer] [id number] 2024 Unknown [id number] 2021 Medicaid [employer] [place] [employer] [id number] 2021-Present [address] [place] [address] [id number] 1999 Unknown [id number] .593 1999 Unknown [id number] 2.16.840.1.448204.3.579.2 .593 1999 Unknown [id number] 2.16.840.1.736342.3.579.2 .593 1999 Unknown [id number] 2.16.840.1.308443.3.579.2 .593 1999 Unknown [id number] 2.16.840.1.401013.3.579.2 .593 1999 Unknown [id number] 2.16.840.1.756011.3.579.2 .593 1999 Unknown [id number] 2.16.840.1.009090.3.579.2 .593 1999 Unknown [id number] 2.16.840.1.668432.3.579.2 .593 1999 Unknown [id number] 2.16.840.1.257065.3.579.2 .593 1999 Unknown [id number] 2.16.840.1.670175.3.579.2 .593 1999 Unknown [id number] 2.16.840.1.227220.3.579.2 .593 1999 Unknown [id number] 2.16.840.1.248492.3.579.2 .1286 1999 Unknown [id number] 2.16.840.1.957122.3.579.2 .1286 1999 Unknown [id number] 2.16.840.1.648371.3.579.2 .1259 1999 Unknown [id number] 2.16.840.1.215680.3.579.2 .1259 1999 Unknown [id number] 2.16.840.1.252461.3.579.2 .1259 1959 Unknown [id number] Social History Date Type Detail Facility Start: 04-11-2023 Tobacco smoking stat [facility] Never smoked tobacco [facility] Start: 04-11-2023 Tobacco use and exposure Smokeless t obacco non-user [facility] Start: 10-12-2023 End: 04-10-2025 Alcohol intake Lifetime non-drinker (finding) [facility] Start: 04-11-2023 End: 04-10-2025 History of Social function [facility] Start: 04-11-2023 End: 04-10-2025 Tobacco use panel [facility] Start: 2000 Sex Assigned At Not on file N [facility] History of Present illness Narrative 04-10-2025 Naty Silverio - 04/10/2025 10:00 AM EDT Note Date & Type Note Facility 04-10-2025 History of Presen t illness Narrative Reason for Appointment: Patient ID: aWlter Sosa is a 24 y.o. female who presents for Pre-op Visit and Gynecologic Exam Patient presents today for a Pre Op/Annual appointment. Patient is scheduled to undergo Diagnostic Laparoscopy, possible SANTI, possible FOE, possible BSO on 04-26-[address] Aguilar at [facility]. appointment. MEDICATIONS Current Outpatient Medications Medication Instructions acetaminophen (TYLENOL) 1,000 mg, Oral, Every 4 hours PRN medroxyPROGESTERone (PROVERA) 10 mg, Oral, Daily norethindrone-ethinyl estradiol (June09/18) 1-20 MG-MCG tablet 1 tablet, Oral, Daily [...] nursing note reviewed. Exam conducted with a spinning lathe operator present. Vitals: Estimated body mass index is 48.79 kg/m as calculated from the following: Height as [...] she is doing well and has complaints. Pap was obtained without difficulty. Pre Op: Patient is [...] reviewed, and patient is to proceed to [facility] OR. Follow Up: Patient is to follow up between 1-2 weeks post operative to assess proper healing and recovery from procedure. Documented by Teresa Sherman LPN on behalf of: Nadia Aguilar DO documented in this encounter [facility] History of Present illness Narrative 02-27-2025 Teresa Sherman, SPEECH AND HEARING DIRECTOR - 02/27/2025 10:00 AM EDT Note Date & Type Note Facility 02-27-2025 History of Presen t illness Narrative Reason for Appointment: Patient ID: Walter Sosa is a 24 y.o. female who presents for Bleeding After IC Patient presents today for Acute Visit. and Consult appointment. MEDICATIONS Current Outpatient Medications Medication Instructions acetaminophen (TYLENOL) 1,000 mg, Oral, Every 4 hours PRN medroxyPROGESTERone (PROVERA) 10 mg, Oral, Daily ALLERGIES Allergies Allergen Reactions Hydrocodone [...] Cardiovascular: Negative. Gastrointestinal: Negative. Genitourinary: Positive for dyspareunia and menstrual problem. Musculoskeletal: Negative. Skin: Negative. Neurological: Negative. All other systems reviewed and are negative. Hematological: Negative. Endocrine: Negative. Allergic/Immunologic: Negative. OBJECTIVE Objective: Physical Exam Constitutional: Appearance: Normal appearance. She is well-developed. Genitourinary: Vulva normal. Cardiovascular: Rate and Rhythm: Normal rate and [...] nursing note reviewed. Exam conducted with a spinning lathe operator present. Vitals: Estimated body mass index is 48.79 kg/m as calculated from the following: Height as of 07/30/22: 5' 4 . Weight as of this encounter: 284 lb 4 oz. BP: 122/90 No LMP recorded. ASSESSMENT & PLAN ICD-10-CM 1. PCB (post coital bleeding) N93.0 2. Pelvic pain R10.2 3. Dysmenorrhea N94.6 4. Irregular menses N92.6 Pt has complaints of PCB, dyspareunia, absence of menstruation, h/o endo and pelvic pain. Cultures obtained. Pt given ultrasound to have obtained. Rx for doxy faxed to pharmacy. Pt to be scheduled for dx lap with len arreola. Pt to return for preop. Documented by Teresa Sherman LPN on behalf of: Nadia Aguilar DO documented in this encounter [facility] Clinical Note 12-10-2024 Note Date & Type Note Facility 12-10-2024 Note XR FOOT LT MIN 3 VWS Procedure: Left foot radiographs performed Number of views:3 History:Foot pain Comparison:09/11/2021 Findings: There is no fracture, dislocation, or destructive lesion. There is a small calcaneal spur. Impression: No acute findings. Finalized by Armando Danielle MD on 12/10/2024 8:38 PM [facility] History of Present illness Narrative 10-12-2023 MICHAEL Mccormick - 10/12/2023 2:30 PM EST Note Date & Type Note Facility 10-12-2023 History of Presen t illness Narrative Reason for Appointment: Patient ID: Walter Sosa is a 22 y.o. female who presents for STI Screening Patient presents today for STD Check/PCOS appointment. Current Medications: has a current medication list which includes the following prescription(s): alprazolam and ibuprofen. Medical History: Active Ambulatory Problems Diagnosis Date Noted No Active Ambulatory Problems Resolved Ambulatory Problems Diagnosis Date Noted No Resolved Ambulatory Problems Past Medical History: Diagnosis Date Anxiety Dyspareunia in female Hormone imbalance Migraines (CMS/HCC) PCOS (polycystic ovarian syndrome) No family history on file. Social History Tobacco Use Smoking status: Never Smokeless tobacco: Never Substance Use Topics Alcohol use: Never Drug use: Never Past Surgical History: Procedure Laterality Date DILATION AND CURETTAGE PAP SMEAR 08/27/2021 negative SALPINGECTOMY Left TONSILLECTOMY Allergies Allergen Reactions Hydrocodone Hydrocodone-Acetaminophen Latex Oxycodone Oxycodone-Acetaminophen Wound Dressing Adhesive Review of Systems: Review of Systems Constitutional: Negative. HENT: Negative. Eyes: Negative. Respiratory: Negative. Cardiovascular: Negative. Gastrointestinal: Negative. Genitourinary: Negative. Musculoskeletal: Negative. Skin: Negative. Neurological: Negative. All other systems reviewed and are negative. Hematological: Negative. Endocrine: Negative. Allergic/Immunologic: Negative. Objective Physical Exam Constitutional: Appearance: Normal appearance. She is well-developed. Genitourinary: Vulva normal. Vaginal discharge present. Cardiovascular: Rate and Rhythm: Normal rate and [...] nursing note reviewed. Exam conducted with a spinning lathe operator present. Vitals: Estimated body mass index is 47.55 kg/m as calculated from the following: Height as of 07/30/22: 5' 4 . Weight as of this encounter: 277 lb. BP: 126/84 No LMP recorded. Assessment/Plan Encounter Diagnoses Name Primary? Vaginal discharge STD exposure PCOS (polycystic ovarian syndrome) Irregular menses Pt presents today for STD check/PCOS evaluation. She complains of vaginal discharge and odor. Hx of BV in the past. Cultures obtained today. Flagyl sent to [facility]. Pt requesting PCOS workup. Labs and US ordered. Metformin sent to pharmacy along with zofran because metformin makes her nauseous. Pt also desires weight loss. Pt to return for weight management appt/labs and ultrasound follow up. Documented by Yolis Nelson MA on behalf of: MICHAEL Mccormick documented in this encounter [facility] Clinical Note 10-02-2022 Note Date & Type Note Facility 10-02-2022 Note OPERATIVE NOTE OPERATION DATE: 10/02/2022 PROCEDURE: Diagnostic laparoscopy with right salpingectomy. PREOPERATIVE DIAGNOSIS: 1. Pelvic pain. 2. Right hydrosalpinx. 3. Pelvic inflammatory disease. POSTOPERATIVE DIAGNOSIS: 1. Pelvic pain. 2. Right hydrosalpinx. 3. Pelvic inflammatory disease. ANESTHESIA: General. SURGEON: Nadia Aguilar D.O. SEAMAN OFFICER: ALONDRA Santo URINE OUTPUT: Yellow and clear. BLOOD LOSS: 5 mL. SPECIMEN: Right tube. FINDINGS: Normal appearing ovaries and uterus. Absent left tube. Right tube evidence of right hydrosalpinx. PROCEDURE: The patient was taken back to the Operating Room where she was placed in dorsal lithotomy position after given general anesthesia. The patient was prepped and draped in normal sterile fashion. A sponge stick was placed into the patient's vagina. Attention was turned to the patient's abdomen, where a small umbilical incision was made. The fascia was tented using Rajiv clamps and the fascia was entered sharply. Confirmation of intra-abdominal placement of the 10 mm port was confirmed under direct visualization using a laparoscope. The patient's abdomen was then insufflated using CO2 gas with approximately 4 liters. A second port was placed left laterally; this was done under direct visualization with a 5 mm port. Survey of the patient's abdomen demonstrated normal liver and gallbladder. Survey of the patient's pelvic anatomy demonstrated normal appearing ovaries and tubes as well as normal appearing uterus. No endometrial implants could be noted, no evidence of any pelvic disease was seen, normal appearing pelvic cavity. All instruments were removed from the patient's abdomen. The patient's abdomen was desufflated of CO2 gas. The patient tolerated the procedure well. Sponge stick was removed from the patient's vagina. The patient's infraumbilical fascia was closed using #0 Vicryl on a GI needle. The patient's skin was closed laterally and infraumbilically using 4-0 Vicryl. The patient tolerated the procedure well. Sponge, lap and needle counts were correct x 2. The patient was taken to Recovery Room in stable condition. [facility] Clinical Note 04-17-2022 Note Date & Type Note Facility 04-17-2022 Note OPERATIVE NOTE OPERATION DATE: 04/17/2022 PROCEDURE: Diagnostic laparoscopy, left salpingectomy with right hydrosalpingotomy. PREOPERATIVE DIAGNOSIS: Pelvic pain, questionable uterine fibroid. POSTOPERATIVE DIAGNOSIS: Bilateral hydrosalpinx, significant in size, with adhesions of bowel to the ovary and pelvic side wall on the patient's left side. SURGEON: Nadia Aguilar D.O. SEAMAN OFFICER: ALONDRA Santo URINE OUTPUT: Yellow and clear. FINDINGS: Possible endometrial implant seen on the patient's right tube, bilateral hydrosalpinx, significant in size. The left side demonstrates significant adhesions of the ovary to the pelvic side wall and to the bowel with involvement of the left tube. Otherwise, normal appearing uterus. SPECIMEN: Left tube as well as fluid from the right salpingotomy. PROCEDURE: The patient was taken back to the Operating Room where she was placed in dorsal lithotomy position after given general anesthesia. The patient was prepped and draped in normal sterile fashion. A sponge stick was placed into the patient's vagina. Attention was turned to the patient's abdomen, where a small umbilical incision was made. The fascia was tented using Rajiv clamps and the fascia was entered sharply. Confirmation of intra-abdominal placement of the 10 mm port was confirmed under direct visualization using a laparoscope. The patient's abdomen was then insufflated using CO2 gas with approximately 4 liters. A second port was placed left laterally, this was done under direct visualization with a 5 mm port. Survey of the patient's abdomen demonstrated normal liver and gallbladder. Survey of the patient's pelvic anatomy demonstrated normal appearing ovaries and tubes as well as normal appearing uterus. No endometrial implants could be noted, no evidence of any pelvic disease was seen, normal appearing pelvic cavity. All instruments were removed from the patient's abdomen. The patient's abdomen was desufflated of CO2 gas. The patient tolerated the procedure well. Sponge stick was removed from the patient's vagina. The patient's infraumbilical fascia was closed using #0 Vicryl on a GI needle. The patient's skin was closed laterally and infraumbilically using 4-0 Vicryl. The patient tolerated the procedure well. Sponge, lap and needle counts were correct x 2. The patient was taken to Recovery Room in stable condition. [facility] Clinical Note 02-23-2022 Note Date & Type Note Facility 02-23-2022 Note PROCEDURE: CT CSPINE WO CON COMPARISON: 04/01/2014 HISTORY: HEADACHE , migraine, dizziness, light sensitivity TECHNIQUE: Axial, Coronal, and Sagittal CT images obtained without IV contrast. Dose reduction techniques were achieved by using automated exposure control and/or adjustment of mA and/or kV according to patient size and/or use of iterative reconstruction technique. FINDINGS: PARASPINAL AREA: Normal with no visible mass. DISCS: Normal BONES: Normal alignment with no acute fracture or spondylolisthesis. No significant degenerative spondylosis and facet osteoarthropathy OTHER: Negative. IMPRESSION: No acute abnormality Electronically authenticated by: TANYA LEVINE Date: 2022-02-23 14:16 [facility] Evaluation note Note Date & Type Note Facility Evaluation note Diagnosis Vaginal discharge Leukorrhea, not specified as infective STD exposure PCOS (polycystic ovarian syndrome) Polycystic ovaries Irregular menses Irregular menstrual cycle documented in this encounter [facility] Evaluation note Note Date & Type Note Facility Evaluation note Diagnosis PCB (post coital bleeding) Postcoital bleeding Pelvic pain Dysmenorrhea Irregular menses Irregular menstrual cycle documented in this encounter [facility] Evaluation note Note Date & Type Note Facility Evaluation note Diagnosis Pre-op examination Pelvic pain Dysmenorrhea PCB (post coital bleeding) Postcoital bleeding Well woman exam with routine gynecological exam Routine gynecological examination PCOS (polycystic ovarian syndrome) Polycystic ovaries documented in this encounter [facility] Summary Purpose Family History No Family History Records FoundNo Family History Records FoundNo Family History Records Found Advance Directives No Advanced Directives Records FoundNo Advanced Directives Records FoundNo Advanced Directives Records Found Additional Source Comments INFORMATION SOURCE (unrecogn ized section and content) DATE CREATED AUTHOR 01/13/2023 [facility] DATE CREATED AUTHOR AUTHOR'S ORGANIZ ATION 12/19/2024 [facility] DATE CREATED AUTHOR AUTHOR'S ORGANIZ ATION 04/11/2025 [facility] EPIC Reason for Visit (unrecogniz ed section and content) Reason Comments STI Screening Reason Comments Bleeding After IC Reason Comments Pre-op Visit Gynecologic Exam FOR RECORDS PERTAINING TO PATIENTS WHO ARE OR HAVE BEEN ENROLLED IN A CHEMICAL DEPENDENCY/SUBSTANCEABUSE PROGRAM, SOME INFORMATION MAY BE OMITTED. This clinical summary was aggregated from multiple sources. Caution should be exercised in using it in the provision of clinical care. This summary normalizes information from multiple sources, and as a consequence, information in this document may materially change the coding, format and clinical context of patient data. In addition, data may be omitted in some cases. CLINICAL DECISIONS SHOULD BE BASED ON THE PRIMARY CLINICAL RECORDS. [employer] provides no warranty or guarantee of the accuracy or completeness of information in this document.
[2025-04-18 04:07] LABS: FSH 4.4 mIU/mL (.)
[2025-04-25 09:08] LABS: DHEA, Serum 238 ng/dL (31-701)
== END 2025-04-17 10:23 | disposition home or self-care (01) ==
PROVIDERS: Visit Provider Obstetrics & Gynecology
DX: Z01.810 Encounter for preprocedural cardiovascular examination (principal); Z01.812 Encounter for preprocedural laboratory examination; N93.0 Postcoital and contact bleeding; R10.2 Pelvic and perineal pain; N94.6 Dysmenorrhea, unspecified; E28.2 Polycystic ovarian syndrome
CPT/HCPCS: 82626; 82627; 83001; 83002; 83036; 84439; 84443; 84702; 85025; 93005

== ENCOUNTER 2025-04-26 12:36 | Day surgery (SDC) | payer OTHER, SELFPAY ==
[2025-04-17 10:50] VITALS: BP 138/91; PULSE 74; TEMP 36.4; O2SAT 98; BMI 48.7
[2025-04-26] VITALS (13 sets, daily range): BP systolic 121–150; BP diastolic 67–94; PULSE 72–90; TEMP 36.5–36.9; O2SAT 91–98; BMI 48.5
[2025-04-26 12:46] LABS: Hematocrit 41.7 % (36.0-48.0); Hemoglobin 13.7 g/dL (12.0-16.0); Immature Granulocytes Abs Auto 0.02 10^3/uL (0.00-0.03); Immature Granulocytes Pct Auto 0.2 % (0.0-0.5); Lymphocytes Absolute Auto 3.0 10^3/uL (1.2-3.8); Mean Corpuscular HGB Conc 32.9 g/dL (29.9-35.2); Mean Corpuscular Hemoglobin 27.8 pg (26.7-34.0); Mean Corpuscular Volume 84.6 fL (81.0-99.0); Platelet Count 306 10^3/uL (150-450); Red Blood Count 4.93 10^6/uL (4.20-5.40); White Blood Count 9.3 10^3/uL (4.0-11.0)
--- OUTSIDE RECORDS SUMMARY | 2025-04-26 12:51 | XMS_ITS | CCD ---
Demographics Address [address] [place] [address] Home Phone Mobile Phone Preferred Language en Marital Status Unknown Mosque Affiliation Unknown Race White Ethnic Group Unknown Author Organization [facility] Care Team Providers Care Appraisal Specialist Name Role Phone LAUREN ., DR ZUNIGA [...] source) Acetaminophen / oxyCODONE Drug Allergy [facility] (1 source) Adhesive bandage Drug allergy (disorder) [facility] (3 sources) HYDROcodone; Translations: [HYDROCODONE] Drug Allergy 0 [facility] (1 source) Latex Drug allergy (disorder) [facility] (12 sources) Acetaminophen / HYDROcodone Drug Allergy [facility] (12 sources) Acetaminophen / oxyCODONE Drug Allergy 3 [facility] (12 sources) HYDROcodone Drug Allergy 0 [facility] (12 sources) Latex Allergy to substance 3 [facility] (13 sources) oxyCODONE; Translations: [OXYCODONE] Drug Allergy 2 [facility] (12 sources) Wound Dressing Adhesive Drug Allergy 3 [facility] Medications Current Medications Medication Drug Class(es) Dates [...] 10-06-2022 Episodic Other aftercare (1 source) Other parts counterman (current) drug therapy; Translations: [OTH MEETING SPECIALIST CURRENT DRUG THERAPY] Onset: 02-25-2022 Episodic Other endocrine disorders (4 sources) Endocrine disorder, unspecified; Translations: [ENDOCRINE DISORDER UNSPECIFIED] Onset: 01-16-2022 Episodic Other female genital disorders (5 sources) Other specified noninflammatory disorders of vagina; Translations: [OTH SPEC NONINFLAMMATORY D/O VAGINA] Onset: 05-28-2022 Episodic Results Test Name Value Interpretation Reference Range Facility ECG 12-LEADon 04-17-[address] [address] Electrocardiograph Report Signed Patient: WALTER SOSA MR#: [id number] : 2000 Acct:[id number] Age/Sex: 24 / F ADM Date: 04/17/25 Loc: PST Attending Dr: Nadia Aguilar D.O. Ordering Physician: Nadia Aguilar D.O. Date of Service: 04/17/25 Procedure(s): ECG 12 lead Accession Number(s): [id number] cc: [facility] Test Date: 2025-04-17 Pat Name: WALTER SOSA Department: Room: - Gender: Female Torque Tester: : 2000 Requested By: NADIA AGUILAR Order Number: [id number] Reading MD: MONSTER REZA Measurements Intervals [place] Rate: 73 P: 37 LA: 157 QRS: 34 QRSD: 85 T: 36 QT: 357 QTc: 394 Interpretive Statements SINUS RHYTHM No previous ECG available for comparison Electronically Signed On 04-17-2025 11:11:40 EDT by MONSTER REZA Dictated By: Monster Reza M.D. Signed By: 04/17/25 1111 DD/ 0850 TD/TT: Employee Development Director: [facility] Radiology, Radiologist, - 04/17/2025 [place] [address] Electrocardiograph Report Signed Patient: WALTER SOSA MR#: [id number] : 2000 Acct:[id number] Age/Sex: 24 / F ADM Date: 04/17/25 Loc: PST Attending Dr: Nadia Aguilar D.O. Ordering Physician: Nadia Aguilar D.O. Date of Service: 04/17/25 Procedure(s): ECG 12 lead Accession Number(s): [id number] cc: [facility] Test Date: 2025-04-17 Pat Name: WALTER SOSA Department: Room: - Gender: Female Torque Tester: : 2000 Requested By: NADIA LAUREN Order Number: [id number] Reading MD: MONSTER REZA Measurements Intervals [place] Rate: 73 P: 37 LA: 157 QRS: 34 QRSD: 85 T: 36 QT: 357 QTc: 394 Interpretive Statements SINUS RHYTHM No previous ECG available for comparison Electronically Signed On 04-17-2025 11:11:40 EDT by MONSTER REZA Dictated By: Monster Reza M.D. Signed By: 04/17/25 1111 DD/ 0850 TD/TT: Employee Development Director: [facility] Radiology Study observation (narrative) [facility] ECG 12-LEADOrdered By: [facility] on [facility]-17-2025 [facility]: IGP,APTIMA HPV,AGE GDLNon AGE GDLN ACOG TESTING Note . [facility] Comment on above: TESTS RESULT FLAG UN ITS REF RANGE LAB Clinician Provided Cytology Information Source.............Cervix;Endocervix No. of containers..01 ThinPrep Vial Age Algo ACOG Marialuisa... -27 09 FLAG LEGEND: L-Low Normal,H-High Normal,LL-Alert Low,HH-Alert High <-Panic Low,>-Panic High,A-Abnormal,AA-Critical Abnormal Performed at: 01 =G [address] [address] Kizzy Bonilla MD, IGP, RFX APTIMA HPV ASCU Note . [facility] Comment on above: TESTS RESULT FLAG UN ITS REF RANGE LAB DIAGNOSIS: 02 NEGATIVE FOR INTRAEPITHELIAL LESION OR MALIGNANCY. Specimen adequacy: 02 Satisfactory for evaluation. Endocervical and/or squamous metaplastic cells (endocervical component) are present. Performed by: 02 So Mcleod, Information Security Officer ([facility]) . 02 Note: Note 02 The Pap [...] High,A-Abnormal,AA-Critical Abnormal Performed at: [address] [facility] [address] [address] Kizzy Bonilla MD, Performed at: =G - [facility] [id number] Smoke Tester: Kizzy Bonilla MD, Phone: [phone] Performed at: [address] [id number] Smoke Tester: Kizzy Bonilla MD, Phone: [phone] BRUSH-SPATULA CERVIX ENDOCERVIX CLINISYNJ [facility] US PELVIC COMPLETE W/ [...] ASSOCIATED BACTERIA 2, 3); MOBILUNCUS SPP 0 [facility] Healthcare BVAB 2,3 (BACTERIAL VAGINOSIS ASSOCIATED BACTERIA 2, 3); MOBILUNCUS SPP Not detected [facility] LISA ALBICANS, PARAPSILOSIS, TROPICALIS 0 [facility] LISA ALBICANS, PARAPSILOSIS, TROPICALIS Not detected [facility] LISA GLABRATA 0 [facility] LISA GLABRATA Not detected [facility] LISA KRUSEI 0 [facility] LISA KRUSEI Not detected [facility] [...] 0 [facility] TRICHOMONAS VAGINALIS Not detected [facility] CBC AND AUTO DIFFon 12-17- 25 ABSOLUTE BASOPHIL 0.0 X10E9/L Normal 0.0-0.2 [facility] Comment on above: Performed By: #### C BCA, CMP #### [facility] ([id number]) [address] [place] [address] ABSOLUTE NEUTROPHIL 7.1 X10E9/L High 1.5-6.6 [facility] Comment on above: Performed By: #### C DAVID, CMP #### [facility] ([id number]) [address] [place] [address] Basophils/100 WBC (Bld) 0.2 % Normal [facility] Comment on above: Performed By: #### C DAVDI, CMP #### [facility] ([id number]) [address] [place] [address] Eosinophils (Bld) [#/Vol] 0.1 10*3/uL Normal 0.0-0.4 [facility] Comment on above: Performed By: #### C DAVID, CMP #### [facility] ([id number]) [address] [place] [address] Eosinophils/100 WBC (Bld) 1.2 % Normal [facility] Comment on above: Performed By: #### C DAVID, CMP #### [facility] ([id number]) [address] [place] [address] [place] [address] Erythrocyte distribution width (RBC) [Ratio] 13.8 % Normal 11.5-15.0 [facility] Comment on above: Performed By: #### C BCA, CMP #### [facility] ([id number]) [address] [place] [address] Hematocrit (Bld) [Volume fraction] 38.7 % Normal 35-47 [facility] Comment on above: Performed By: #### C BCA, CMP #### [facility] ([id number]) [address] [place] [address] Hemoglobin (Bld) [Mass/Vol] 13.4 g/dL Normal 11.7-15.5 [facility] Comment on above: Performed By: #### C DAVID, CMP #### [facility] ([id number]) [address] [place] [address] Lymphocytes (Bld) [#/Vol] 2.6 10*3/uL Normal 1.0-3.5 [facility] Comment on above: Performed By: #### C DAVID, CMP #### [facility] ([id number]) [address] [place] [address] Lymphocytes/100 WBC (Bld) 24.5 % Normal [facility] Comment on above: Performed By: #### C DAVID, CMP #### [facility] ([id number]) [address] [place] [address] MCH (RBC) [Entitic mass] 29.1 pg Normal 27-34 [facility] Comment on above: Performed By: #### C DAVID, CMP #### [facility] ([id number]) [address] [place] [address] MCHC (RBC) [Mass/Vol] 34.7 g/dL Normal 32-36 [facility] Comment on above: Performed By: #### C DAVID, CMP #### [facility] ([id number]) [address] [place] [address] 29646 MCV (RBC) [Entitic vol] 84 fL Normal 80-100 [facility] Comment on above: Performed By: #### C BCA, CMP #### [facility] ([id number]) [address] [place] [address]85 Monocytes (Bld) [#/Vol] 0.8 10*3/uL Normal 0-0.9 [facility] Comment on above: Performed By: #### C BCA, CMP #### [facility] ([id number]) [address] [place] [address] 26326 Monocytes/100 WBC (Bld) 7.1 % Normal [facility] Comment on above: Performed By: #### C BCA, CMP #### [facility] ([id number]) [address] [place] [address]205 Neutrophils/100 WBC (Bld) 67.0 % Normal [facility] Comment on above: Performed By: #### C BCA, CMP #### [facility] ([id number]) [address] [place] [address] Platelet mean volume (Bld) [Entitic vol] 8.7 fL Normal 7-12 [facility] Comment on above: Performed By: #### C BCA, CMP #### [facility] ([id number]) [address] [place] [address] Platelets (Bld) [#/Vol] 270 10*3/uL Normal 150-450 [facility] Comment on above: Performed By: #### C BCA, CMP #### [facility] ([id number]) [address] [place] [address] 16270 RBC COUNT 4.61 X10E12/L Normal 3.80-5.20 [facility] Comment on above: Performed By: #### C BCA, CMP #### [facility] ([id number]) [address] [place] [address] 0[address]71 WBC (Bld) [#/Vol] 10.6 10*3/uL Normal 4.0-11.0 [facility] Comment on above: Performed By: #### C BCA, CMP #### [facility] ([id number]) [address] [place] [address] CHLAMYDIA/GC BY PCRon 2024 CHLAMYDIA/GC BY PCR [...] are dependent on adequate specimen collection. Normal [facility] Comment on above: Performed By: #### 2 106-3 #### [facility] ([id number]) [address] [place] [address] 727[address] COMPREHENSIVE METABOLIC PANE Reggie 12-17-2024 Albumin [Mass/Vol] 3.8 g/dL Normal 3.2-5.3 [facility] Comment on above: Performed By: #### C BCA, CMP #### [facility] ([id number]) [address] [place] [address] 31332 ALP [Catalytic activity/Vol] 98 U/L Normal 39-130 [facility] Comment on above: Performed By: #### C BCA, CMP #### [facility] ([id number]) [address] [place] [address] 90064 ALT [Catalytic activity/Vol] 25 U/L Normal 0-31 [facility] Comment on above: Performed By: #### C BCA, CMP #### [facility] ([id number]) [address] [place] [address] 94345 Anion gap [Moles/Vol] 8 mmol/L Normal 5-15 [facility] Comment on above: Performed By: #### C BCA, CMP #### [facility] ([id number]) [address] [place] [address] 96455 AST [Catalytic activity/Vol] 17 U/L Normal 0-41 [facility] Comment on above: Performed By: #### C BCA, CMP #### [facility] ([id number]) [address] [place] [address] 98704 Bilirubin [Mass/Vol] 0.8 mg/dL Normal 0.3-1.2 [facility] Comment on above: Performed By: #### C BCA, CMP #### [facility] ([id number]) [address] [place] [address] 92792 Calcium [Mass/Vol] 8.6 mg/dL Normal 8.5-10.5 [facility] Comment on above: Performed By: #### C BCA, CMP #### [facility] ([id number]) [address] [place] [address] 78167 Chloride [Moles/Vol] 105 mmol/L Normal 98-109 [facility] Comment on above: Performed By: #### C BCA, CMP #### [facility] ([id number]) [address] [place] [address] 91682 CO2 [Moles/Vol] 25 mmol/L Normal 22-32 [facility] Comment on above: Performed By: #### C BCA, CMP #### [facility] ([id number]) [address] [place] [address] 51780 Creatinine [Mass/Vol] 0.72 mg/dL Normal 0.40-1.00 [facility] Comment on above: Result Comment: METH OD TRACEABLE TO IDMS STANDARD Performed By: #### C BCA, CMP #### [facility] ([id number]) [address] [place] [address] 39137 eGFR (CKD-EPI) NON-RACE DEPENDENT >90 Normal >59 [facility] Comment on above: Result Comment: Reported eGFR is based on the CKD-EPI 2020 equation that does not use a race coefficient. Performed By: #### C BCA, CMP #### [facility] ([id number]) [address] [place] [address] 65303 Glucose [Mass/Vol] 104 mg/dL High 65-99 [facility] Comment on above: Performed By: #### C BCA, CMP #### [facility] ([id number]) [address] [place] [address] 72995 Potassium [Moles/Vol] 3.9 mmol/L Normal 3.5-5.0 [facility] Comment on above: Performed By: #### C BCA, CMP #### [facility] ([id number]) [address] [place] [address] 46031 Protein [Mass/Vol] 7.3 g/dL Normal 6.0-8.0 [facility] Comment on above: Performed By: #### C BCA, CMP #### [facility] ([id number]) [address] [place] [address] 10019 Sodium [Moles/Vol] 138 mmol/L Normal 134-146 [facility] Comment on above: Performed By: #### C BCA, CMP #### [facility] ([id number]) [address] [place] [address] 58372 Urea nitrogen [Mass/Vol] 13 mg/dL Normal 5-23 [facility] Comment on above: Performed By: #### C BCA, CMP #### [facility] ([id number]) [address] [place] [address] ABDOMEN AND PELVIS WO CON Ton [...] Rosa MD on 12/17/2024 12:05 PM Normal [facility] HCG ( test) Ql (U)o n 12-17-2024 Beta HCG ( test) Ql (U) Negative Normal NEG [facility] Comment on above: Performed By: #### 2 106-3 #### [facility] ([id number]) [address] [place] [address] 13189 URN MACROSCOPIC NURon 2024 BILIRUBIN KALA Negative Normal [facility] Comment on above: Performed By: #### N UM #### [facility] ([id number]) [address] [place] [address] 43514 BLOOD/HGB KALA Large Abnormal [facility] Comment on above: Performed By: #### N UM #### [facility] ([id number]) [address] [place] [address] 77315 GLUCOSE KALA Negative Normal [facility] Comment on above: Performed By: #### N UM #### [facility] ([id number]) [address] [place] [address] 83841 KETONES KALA Negative Normal NEG [facility] Comment on above: Performed By: #### N UM #### [facility] ([id number]) [address] [place] [address] 23046 LEUKOCYTE ESTERASE KALA Small Abnormal NEG [facility] Comment on above: Performed By: #### N UM #### [facility] ([id number]) [address] [place] [address] 69431 NITRITE KALA Negative Normal NEG [facility] Comment on above: Performed By: #### N UM #### [facility] ([id number]) [address] [place] [address] 85475 PH KALA 7.0 Normal 5.0-8.5 [facility] Comment on above: Performed By: #### N UM #### [facility] ([id number]) [address] [place] [address] 03608 PROTEIN KALA >=300 Abnormal NEG [facility] Comment on above: Performed By: #### N UM #### [facility] ([id number]) [address] [place] [address] 39605 SPECIFIC GRAVITY KALA 1.025 Normal 1.003-1.035 [facility] Comment on above: Performed By: #### N UM #### [facility] ([id number]) [address] [place] [address] 69000 UROBILINOGEN KALA 0.2 eu/dL Normal <1.1 [facility] Comment on above: Performed By: #### N UM #### [facility] ([id number]) [address] [place] [address] 09755 VAGINITIS PANEL PCRon 2024 VAGINITIS PANEL PCR [...] clinical presentation to determine patient diagnosis. Normal [facility] Comment on above: Performed By: #### V PPCR #### [facility] ([id number]) [address] [place] [address] CT ABDOMEN AND PELVIS WO CON Ton [...] Russell Garcia on 10/23/2024 6:24 PM Normal [facility] HCG ( test) Ql (U)o n 10-23-2024 Beta HCG ( test) Ql (U) Negative Normal NEG [facility] Comment on above: Performed By: #### 2 106-3 #### [facility] ([id number]) [address] [place] [address] [place] [address] URN MACROSCOPIC NURon 2024 BILIRUBIN KALA Negative Normal NEG [facility] Comment on above: Performed By: #### N UM #### [facility] ([id number]) [address] [place] [address] [place] [address] BLOOD/HGB KALA Large Abnormal NEG [facility] Comment on above: Performed By: #### N UM #### [facility] ([id number]) [address] [place] [address] [place] [address] GLUCOSE KALA Negative Normal NEG [facility] Comment on above: Performed By: #### N UM #### [facility] ([id number]) [address] [place] [address] [place] [address] KETONES KALA Negative Normal NEG [facility] Comment on above: Performed By: #### N UM #### [facility] ([id number]) [address] [place] [address], [place] [address] LEUKOCYTE ESTERASE KALA Negative Normal NEG [facility] Comment on above: Performed By: #### N UM #### [facility] ([id number]) [address] [place] [address] [place] [address] NITRITE KALA Negative Normal NEG [facility] Comment on above: Performed By: #### N UM #### [facility] ([id number]) [address] [place] [address] [place] [address] PH KALA 5.5 Normal 5.0-8.5 [facility] Comment on above: Performed By: #### N UM #### [facility] ([id number]) [address] [place] [address] [place] [address] PROTEIN KALA Trace Abnormal NEG [facility] Comment on above: Performed By: #### N UM #### [facility] ([id number]) [address] [facility], [place] [address] SPECIFIC GRAVITY KALA >=1.030 Normal 1.003-1.035 [facility] Comment on above: Performed By: #### N UM #### [facility] ([id number]) [address] [place] [address], [place] [address] UROBILINOGEN KALA 0.2 eu/dL Normal <1.1 [facility] Comment on above: Performed By: #### N UM #### [facility] ([id number]) [address] [place] [address] 10315 URETHRITIS/DISCHARGE PLUS VA GINITIS (HTRX)on 10-13-2023 AT[facility]OBIUM V[facility]INAE 0 [facility] ATOPOBIUM VAGINAE Not detected [facility] BVAB 2,3 (BACTERIAL VAGINOSIS ASSOCIATED BACTERIA 2, 3); MOBILUNCUS SPP 0 [facility] BVAB 2,3 (BACTERIAL VAGINOSIS ASSOCIATED BACTERIA 2, 3); MOBILUNCUS SPP Not detected [facility] LISA ALBICANS, PARAPSILOSIS, TROPICALIS 0 [facility] LISA ALBICANS, PARAPSILOSIS, TROPICALIS Not detected [facility] Healthcare LISA GLABRATA 0 [facility] lthcare LISA GLABRATA Not detected [facility] LISA KRUSEI 0 [facility] LISA KRUSEI Not detected [facility] CHLAMYDIA TRACHOMATIS 0 [facility] CHLAMYDIA TRACHOMATIS Not detected [facility] GARDNERELLA VAGINALIS 0 [facility] Healthcare GARDNERELLA VAGINALIS Not detected [facility] MEGASPHAERA (TYPES 1, 2) 0 [facility] MEGASPHAERA (TYPES 1, 2) Not detected [facility] MYCOPLASMA GENITALIUM 0 [facility] MYCOPLASMA GENITALIUM Not detected [facility] NEISSERIA GONORRHOEAE 0 [facility] NEISSERIA GONORRHOEAE Not detected [facility] TRICHOMONAS VAGINALIS 0 [facility] TRICHOMONAS VAGINALIS Not detected [facility] Healthcare [facility] Healthcar e MLR HEMOGLOBIN A1Con 024 Glucose [Mass/Vol] 105 mg/dL [facility] HbA1c (Bld) [Mass fraction] 5.3 % 4.5 - 6.2 % [facility] Comment on above: ADA RECOMMENDED LIMI T 4.0 - 6.0 ADA THERAPEUTIC TARGET < 7.0 ACTION SUGGESTED > 7.0 [facility] CBC AUTO DIFFon 10-02-2022 BASO # 0.0 103/ul Normal 0.0-0.1 [facility] Comment on above: Performed By: #### C BC #### [facility] [address] [address] [address] Alicia Drake Basophils/100 WBC (Bld) 0.3 % Normal 0.2-2.0 [facility] Comment on above: Performed By: #### C BC #### [facility] [address] [address] [address] Alicia Drake EO # 0.1 103/ul Normal 0.0-0.7 [facility] Comment on above: Performed By: #### C BC #### [facility] [address] [place] [address] Dr. Alicia Drake Eosinophils/100 WBC (Bld) 1.2 % Normal 0.9-7.0 [facility] Comment on above: Performed By: #### C BC #### [facility] [address] [place] [address] Dr. Alicia Drake Erythrocyte distribution width (RBC) [Ratio] 12.1 % Normal 11.0-15.0 [facility] Comment on above: Performed By: #### C BC #### [facility] [address] [place] [address] Dr. Alicia Drake Hematocrit (Bld) [Volume fraction] 42.3 % Normal 36.0-48.0 [facility] Comment on above: Performed By: #### C BC #### [facility] [address] [address] [address] Alicia Drake Hemoglobin (Bld) [Mass/Vol] 14.4 g/dL Normal 12.0-16.0 [facility] Comment on above: Performed By: #### C BC #### [facility] [address] [place] [address] Dr. Alicia Drake IG # 0.03 10e3/ul Normal 0.00-0.03 [facility] Comment on above: Performed By: #### C BC #### [facility] [address] [place] [address] Dr. Alicia Drake IG % 0.3 % Normal 0.0-0.5 [facility] Comment on above: Performed By: #### C BC #### [facility] [address] [place] [address] Dr. Alicia Drake LYMPH # 4.4 103/ul Critically high 1.2-3.8 [facility] Comment on above: Performed By: #### C BC #### [facility] [address] [place] [address] Dr. Alicia Drake Lymphocytes/100 WBC (Bld) 36.9 % Normal 20.5-60.0 [facility] Comment on above: Performed By: #### C BC #### [facility] [address] [place] [address] Dr. Alicia Drake MANUAL DIFF REQ NO Normal [facility] Comment on above: Performed By: #### C BC #### [facility] [address] [place] [address] Dr. Alicia Drake MCH (RBC) [Entitic mass] 29.1 pg Normal 26.7-34.0 [facility] Comment on above: Performed By: #### C BC #### [facility] [address] [place] [address] Dr. Aliica Drake MCHC (RBC) [Mass/Vol] 34.0 g/dL Normal 29.9-35.2 [facility] Comment on above: Performed By: #### C BC #### [facility] [address] [place] [address] Dr. Alicia Drake MCV (RBC) [Entitic vol] 85.5 fL Normal 81.0-99.0 [facility] Comment on above: Performed By: #### C BC #### [facility] [address] [place] [address] Dr. Alicia Drake MONO # 0.9 103/ul Critically high 0.3-0.8 [facility] Comment on above: Performed By: #### C BC #### [facility] [address] [place] [address] Dr. Alicia Drake Monocytes/100 WBC (Bld) 7.3 % Normal 1.7-12.0 [facility] Comment on above: Performed By: #### C BC #### [facility] [address] [place] [address] Dr. Alicia Drake NEUT # 6.5 103/ul Normal 1.4-6.5 [facility] Comment on above: Performed By: #### C BC #### [facility] [address] [place] [address] Dr. Alicia Drake Neutrophils/100 WBC (Bld) 56.1 % Normal 43.0-75.0 [facility] Comment on above: Performed By: #### C BC #### [facility] [address] [place] [address] Dr. Alicia Drake Platelet mean volume (Bld) [Entitic vol] 10.0 fL Normal 9.5-13.5 [facility] Comment on above: Performed By: #### C BC #### [facility] [address] [place] [address] Dr. Alicia Drake PLT 298 103/ul Normal 150-450 [facility] Comment on above: Performed By: #### C BC #### [facility] [address] [place] [address] Dr. Alicia Drake RBC 4.95 106/ul Normal 4.20-5.40 [facility] Comment on above: Performed By: #### C BC #### [facility] [address] [place] [address] Dr. Alicia Drake WBC 11.6 103/ul Critically high 4.0-11.0 [facility] Comment on above: Performed By: #### C BC #### [facility] [address] [place] [address] Dr. Alicia Drake PREG QUANT HCGon 10-02-2022 HCG QUANT 0 mIU/mL Normal [facility] Comment on above: Performed By: #### F NA #### [facility] [address] [place] [address] Dr. Alicia Drake HCG RANGE SEE BELOW Normal [facility] Comment on above: Result Comment: 5-50 0.2-1 WEEK 50-500 1-2 WEEKS 100-5,000 2-3 WEEKS 500-10,000 3-4 WEEKS 1,000-50,000 4-5 WEEKS 10,000-100,000 5-6 WEEKS 15,000-200,000 6-8 WEEKS 10,000-100,000 2-3 MONTHS Performed By: #### F NA #### [facility] [address] [place] [address] Dr. Alicia Drake CHLAMYDIA/GONOCOCCUS TRISH ( AB/URINE/PAPon 08-03-2022 Chlamydia trachomatis, TRISH Negative Normal Negative [facility] Comment on above: Performed By: #### C T/NGNA #### [facility] [address] [place] [address] Dr. Alicia Drake Neisseria gonorrhoeae, TRISH Negative Normal Negative [facility] Comment on above: Performed By: #### C T/NGNA #### [facility] [address] [place] [address] Dr. Alicia Drake VAGINITIS/VAGINOSIS DNA PROB Pedro 08-02-2022 Lisa species Negative Normal Negative [facility] Comment on above: Performed By: #### V AGINT #### [facility] [address] [place] [address] Dr. Alicia Drake Gardnerella vaginalis Negative Normal Negative [facility] Comment on above: Performed By: #### V AGINT #### [facility] [address] [place] [address] Dr. Alicia Drake Trichomonas vaginalis Negative Normal Negative [facility] Comment on above: Performed By: #### V AGINT #### [facility] [address] [place] [address] Dr. Alicia Drake VAGINITIS/VAGINOSIS DNA PROB Pedro 05-31-2022 Lisa species Negative Normal Negative [facility] Comment on above: Performed By: #### C BC #### [facility] [address] [place] [address] Dr. Alicia Drake Gardnerella vaginalis Positive Abnormal Negative [facility] Comment on above: Performed By: #### C BC #### [facility] [address] [address] [address] Alicia Drake Trichomonas vaginalis Negative Normal Negative [facility] Comment on above: Performed By: #### C BC #### [facility] [id number] Alicia Drake FINE NEEDLE ASPIRATION CYTOL OGYon 05-15-2022 Diagnosis Comment Normal [facility] Comment on above: Result Comment: RIGH T HYDRO SALPINX FLUID NEGATIVE FOR MALIGNANT CELLS. ESSENTIALLY ACELLULAR SPECIMEN. CELLULAR DEGENERATION IS PRESENT. Performed By: #### F NA #### [facility] [address] [place] [address] Dr. Alicia Drake Gross description Comment Normal [facility] Comment on above: Result Comment: 2ML, WHITE, CLOUDY /LCS 04/21/2022 1333 Local Performed By: #### F NA #### [facility] [address] [place] [address] Dr. Alicia Drake Performed By Comment Normal [facility] Comment on above: Result Comment: Kiarra Farrell, Proj Mgr Performed By: #### F NA #### [facility] [address] [place] [address] Dr. Alicia Drake Signed Out By Comment Normal [facility] Comment on above: Result Comment: Nakita Cid MD, Pathologist Performed By: #### F NA #### [facility] [address] [place] [address] Dr. Alicia Drake Source Comment Normal [facility] Comment on above: Result Comment: RT H YDRO SALPUNX Performed By: #### F NA #### [facility] [address] [place] [address] Dr. Alicia Drake HCG-BETA SUBUNIT QUANTon hCG,Beta Subunit,Qnt,Serum <1 Normal [facility] Comment on above: Result Comment: Fema le (Non-) 0 - 5 (Postmenopausal) 0 - 8 . Female () Weeks of Gestation 3 6 - 71 4 10 - 750 5 184 - 4770 6 550 - 19479 7 [phone] 8 [phone] 9 [phone] [phone] 12 [phone] -[phone] 14 19917 - 23062 15 78579 - 32420 16 1258 - 41488 17 8508 - [phone] 18 [phone] - [phone] Erik ECLIA methodology Performed By: #### H CGSUB #### [facility] [address] [place] [address] Dr. Alicia Drake CBC AUTO DIFFon 04-15-2022 BASO # 0.0 103/ul Normal 0.0-0.1 [facility] Comment on above: Performed By: #### C BC #### [facility] [address] [place] [address] Dr. Alicia Drake Basophils/100 WBC (Bld) 0.2 % Normal 0.2-2.0 [facility] Comment on above: Performed By: #### C BC #### [facility] [address] [place] [address] Dr. Alicia Drake EO # 0.1 103/ul Normal 0.0-0.7 [facility] Comment on above: Performed By: #### C BC #### [facility] [address] [place] [address] Dr. Alicia Drake Eosinophils/100 WBC (Bld) 1.1 % Normal 0.9-7.0 [facility] Comment on above: Performed By: #### C BC #### [facility] [address] [place] [address] Dr. Alicia Drake Erythrocyte distribution width (RBC) [Ratio] 13.3 % Normal 11.0-15.0 [facility] Comment on above: Performed By: #### C BC #### [facility] [address] [place] [address] Dr. Alicia Drake Hematocrit (Bld) [Volume fraction] 42.7 % Normal 36.0-48.0 [facility] Comment on above: Performed By: #### C BC #### [facility] [address] [place] [address] Dr. Alicia Drake Hemoglobin (Bld) [Mass/Vol] 14.1 g/dL Normal 12.0-16.0 [facility] Comment on above: Performed By: #### C BC #### [facility] [address] [place] [address] Dr. Alicia Drake IG # 0.04 10e3/ul Critically high 0.00-0.03 [facility] Comment on above: Performed By: #### C BC #### [facility] [address] [place] [address] Dr. Alicia Drake IG % 0.4 % Normal 0.0-0.5 [facility] Comment on above: Performed By: #### C BC #### [facility] [address] [place] [address] Dr. Alicia Drake LYMPH # 3.4 103/ul Normal 1.2-3.8 [facility] Comment on above: Performed By: #### C BC #### [facility] [address] [place] [address] Dr. Alicia Drake Lymphocytes/100 WBC (Bld) 31.9 % Normal 20.5-60.0 [facility] Comment on above: Performed By: #### C BC #### [facility] [address] [place] [address] Dr. Alicia Drake MANUAL DIFF REQ NO Normal [facility] Comment on above: Performed By: #### C BC #### [facility] [address] [place] [address] Dr. Alicia Drake MCH (RBC) [Entitic mass] 28.8 pg Normal 26.7-34.0 [facility] Comment on above: Performed By: #### C BC #### [facility] [address] [place] [address] Dr. Alicia Drake MCHC (RBC) [Mass/Vol] 33.0 g/dL Normal 29.9-35.2 [facility] Comment on above: Performed By: #### C BC #### [facility] [address] [place] [address] Dr. Alicia Drake MCV (RBC) [Entitic vol] 87.3 fL Normal 81.0-99.0 [facility] Comment on above: Performed By: #### C BC #### [facility] [address] [place] [address] Dr. Alicia Drake MONO # 0.9 103/ul Critically high 0.3-0.8 [facility] Comment on above: Performed By: #### C BC #### [facility] [address] [place] [address] Dr. Alicia Drake Monocytes/100 WBC (Bld) 8.9 % Normal 1.7-12.0 [facility] Comment on above: Performed By: #### C BC #### [facility] [address] [place] [address] Dr. Alicia Drake NEUT # 6.1 103/ul Normal 1.4-6.5 [facility] Comment on above: Performed By: #### C BC #### [facility] [address] [place] [address] Dr. Alicia Drake Neutrophils/100 WBC (Bld) 57.5 % Normal 43.0-75.0 [facility] Comment on above: Performed By: #### C BC #### [facility] [address] [place] [address] Dr. Alicia Drake Platelet mean volume (Bld) [Entitic vol] 10.4 fL Normal 9.5-13.5 [facility] Comment on above: Performed By: #### C BC #### [facility] [address] [place] [address] Dr. Alicia Drake PLT 265 103/ul Normal 150-450 [facility] Comment on above: Performed By: #### C BC #### [facility] [address] [place], [place] [id number] Dr. Alicia Drake RBC 4.89 106/ul Normal 4.20-5.40 [facility] Comment on above: Performed By: #### C BC #### [facility] [address] [place] [address] Dr. Alicia Drake WBC 10.5 103/ul Normal 4.0-11.0 [facility] Comment on above: Performed By: #### C BC #### [facility] [address] [place] [address] Dr. Alicia Drake Covid-19 PCR ([facility])on 03-30 SARS-CoV-2 (COVID-19) RNA TRISH+probe Ql (Unsp spec) Not detected Normal NOT DETECTED [facility] Comment on above: Result Comment: This test is not yet approved or cleared by the [place] FDA. When there are no FDA-approved or cleared tests available, and other criteria are met, FDA can make tests available under an emergency access mechanism called an Emergency Use Authorization (EUA). The EUA for this test is supported by the Fingerprint Expert of Health and Human Service's (HHS's) declaration [...] SARS-CoV-2. Performed By: #### C VDTB #### [facility] [address] [place] [address] Dr. Alicia Drake CBC AUTO DIFFon 02-23-2022 BASO # 0.0 103/ul Normal 0.0-0.1 [facility] Comment on above: Performed By: #### C BC #### [facility] [address] [place] [address] Dr. Alicia Drake Basophils/100 WBC (Bld) 0.2 % Normal 0.2-2.0 [facility] Comment on above: Performed By: #### C BC #### [facility] [address] [place] [address] Dr. Alicia Drake EO # 0.1 103/ul Normal 0.0-0.7 [facility] Comment on above: Performed By: #### C BC #### [facility] [address] [place] [address] Dr. Alicia Drake Eosinophils/100 WBC (Bld) 1.0 % Normal 0.9-7.0 [facility] Comment on above: Performed By: #### C BC #### [facility] [address] [place] [address] Dr. Alicia Drake Erythrocyte distribution width (RBC) [Ratio] 12.9 % Normal 11.0-15.0 [facility] Comment on above: Performed By: #### C BC #### [facility] [address] [place] [address] Dr. Alicia Drake Hematocrit (Bld) [Volume fraction] 41.3 % Normal 36.0-48.0 [facility] Comment on above: Performed By: #### C BC #### [facility] [address] [place] [address] Dr. Alicia Drake Hemoglobin (Bld) [Mass/Vol] 13.8 g/dL Normal 12.0-16.0 [facility] Comment on above: Performed By: #### C BC #### [facility] [address] [place] [address] Dr. Alicia Drake IG # 0.04 10e3/ul Critically high 0.00-0.03 [facility] Comment on above: Performed By: #### C BC #### [facility] [address] [place] [address] Dr. Alicia Drake IG % 0.4 % Normal 0.0-0.5 [facility] Comment on above: Performed By: #### C BC #### [facility] [address] [place] [address] Dr. Alicia Drake LYMPH # 2.6 103/ul Normal 1.2-3.8 [facility] Comment on above: Performed By: #### C BC #### [facility] [address] [place] [address] Dr. Alicia Drake Lymphocytes/100 WBC (Bld) 27.6 % Normal 20.5-60.0 [facility] Comment on above: Performed By: #### C BC #### [facility] [address] [place] [address] Dr. Alicia Drake MANUAL DIFF REQ NO Normal [facility] Comment on above: Performed By: #### C BC #### [facility] [address] [place] [address] Dr. Alicia Drake MCH (RBC) [Entitic mass] 28.5 pg Normal 26.7-34.0 [facility] Comment on above: Performed By: #### C BC #### [facility] [address] [place] [address] Dr. Alicia Drake MCHC (RBC) [Mass/Vol] 33.4 g/dL Normal 29.9-35.2 [facility] Comment on above: Performed By: #### C BC #### [facility] [address] [place] [address] Dr. Alicia Drake MCV (RBC) [Entitic vol] 85.3 fL Normal 81.0-99.0 [facility] Comment on above: Performed By: #### C BC #### [facility] [address] [place] [address] Dr. Alicia Drake MONO # 0.6 103/ul Normal 0.3-0.8 [facility] Comment on above: Performed By: #### C BC #### [facility] [address] [place] [address] Dr. Alicia Drake Monocytes/100 WBC (Bld) 6.6 % Normal 1.7-12.0 [facility] Comment on above: Performed By: #### C BC #### [facility] [address] [place] [address] Dr. Alicia Drake NEUT # 6.1 103/ul Normal 1.4-6.5 [facility] Comment on above: Performed By: #### C BC #### [facility] [address] [place] [address] Dr. Alicia Drake Neutrophils/100 WBC (Bld) 64.2 % Normal 43.0-75.0 [facility] Comment on above: Performed By: #### C BC #### [facility] [address] [address] [address] Alicia Drake Platelet mean volume (Bld) [Entitic vol] 10.3 fL Normal 9.5-13.5 [facility] Comment on above: Performed By: #### C BC #### [facility] [address] [place] [address] Dr. Alicia Drake PLT 273 103/ul Normal 150-450 [facility] Comment on above: Performed By: #### C BC #### [facility] [address] [address] [address] Alicia Drake RBC 4.84 106/ul Normal 4.20-5.40 [facility] Comment on above: Performed By: #### C BC #### [facility] [address] [place] [address] Dr. Alicia Drake WBC 9.4 103/ul Normal 4.0-11.0 [facility] Comment on above: Performed By: #### C BC #### [facility] [address] [place] [address] Dr. Alicia Drake CRPon 02-23-2022 CRP 1.8 mg/dL Critically high <=1.0 [facility] Comment on above: Performed By: #### C BC #### [facility] [address] [place] [address] HEAD WO CONon [...] by: TRIPP CROOKS Date: 2022-02-23 14:31 Normal [facility] PREG HCG QUALon 02-23-2022 , QUAL Negative Normal NEGATIVE [facility] Comment on above: Performed By: #### C BC #### [facility] [address] [place] [address] Dr. Alicia Drake PROF 14(COMP METB)on 022 Albumin [Mass/Vol] 3.6 g/dL Normal 3.4-5.0 [facility] Comment on above: Performed By: #### C BC #### [facility] [address] [place] [address] Dr. Alicia Drake Albumin/Globulin [Mass ratio] 1.0 {ratio} Normal [facility] Comment on above: Performed By: #### C BC #### [facility] [address] [place] [address] Dr. Alicia Drake ALP [Catalytic activity/Vol] 110 U/L Normal 46-116 [facility] Comment on above: Performed By: #### C BC #### [facility] [address] [place] [address] Dr. Alicia Drake ALT [Catalytic activity/Vol] 26 U/L Normal 14-59 [facility] Comment on above: Performed By: #### C BC #### [facility] [address] [place] [address] Dr. Alicia Drake Anion gap [Moles/Vol] 11.1 mmol/L Normal [facility] Comment on above: Performed By: #### C BC #### [facility] [address] [place] [address] Dr. Alicia Drake AST [Catalytic activity/Vol] 13 U/L Critically low 15-37 [facility] Comment on above: Performed By: #### C BC #### [facility] [address] [place] [address] Dr. Alicia Drake Bilirubin [Mass/Vol] 0.7 mg/dL Normal 0.2-1.0 [facility] Comment on above: Performed By: #### C BC #### [facility] [address] [address] [address] Alicia Drake Calcium [Mass/Vol] 8.8 mg/dL Normal 8.5-10.1 [facility] Comment on above: Performed By: #### C BC #### [facility] [address] [address] [address] Alicia Drake Chloride [Moles/Vol] 105 mmol/L Normal 98-107 [facility] Comment on above: Performed By: #### C BC #### [facility] [address] [place] [address] Dr. Alicia Drake CO2 [Moles/Vol] 28.7 mmol/L Normal 21.0-32.0 [facility] Comment on above: Performed By: #### C BC #### [facility] [address] [place] [address] Dr. Alicia Drake Creatinine [Mass/Vol] 0.82 mg/dL Normal 0.55-1.02 [facility] Comment on above: Performed By: #### C BC #### [facility] [address] [place] [address] Dr. Alicia Drake EGFR-AF HAITIAN >60 Normal >=60 [facility] Comment on above: Performed By: #### C BC #### [facility] [address] [place] [address] Dr. Alicia Drake EGFR-NON AF HAITIAN >60 Normal >=60 [facility] Comment on above: Performed By: #### C BC #### [facility] [address] [place] [address] Dr. Alicia Drake Globulin (S) [Mass/Vol] 3.7 g/dL Normal [facility] Comment on above: Performed By: #### C BC #### [facility] [address] [place] [address] Dr. Alicia Drake Glucose [Mass/Vol] 93 mg/dL Normal 74-106 [facility] Comment on above: Performed By: #### C BC #### [facility] [address] [address] [address] Alicia Drake Potassium [Moles/Vol] 3.8 mmol/L Normal 3.5-5.1 [facility] Comment on above: Performed By: #### C BC #### [facility] [address] [address] [address] Alicia Drake Protein [Mass/Vol] 7.3 g/dL Normal 6.4-8.2 [facility] Comment on above: Performed By: #### C BC #### [facility] [address] [address] [address] Alicia Drake Sodium [Moles/Vol] 141 mmol/L Normal 136-145 [facility] Comment on above: Performed By: #### C BC #### [facility] [address] [address] [address] Alicia Drake Urea nitrogen [Mass/Vol] 12.0 mg/dL Normal 7.0-18.0 [facility] Comment on above: Performed By: #### C BC #### [facility] [address] [address] [address] Alicia Drake Urea nitrogen/Creatinine [Mass ratio] 14.6 mg/mg Normal [facility] Comment on above: Performed By: #### C BC #### [facility] [address] [address] [address] Alicia Drake SED RATE [facility] 2021 SED RATE 21 mm/hr Critically high <=20 [facility] Comment on above: Performed By: #### F NA #### [facility] [address] [address] [address] Alicia Drake CHLAMYDIA/GONOCOCCUS TRISH ( AB/URINE/PAPon 01-19-2022 Chlamydia trachomatis, TRISH Negative Normal Negative [facility] Comment on above: Performed By: #### C T/NGNA #### [facility] [address] [address] [address] Alicia Drake Neisseria gonorrhoeae, TRISH Negative Normal Negative [facility] Comment on above: Performed By: #### C T/NGNA #### [facility] [address] [address] [address] Alicia Drake HEPATITIS PANEL, ACUTEon HBsAg Screen Negative Normal Negative [facility] Comment on above: Performed By: #### C BC #### [facility] [address] [address] [address] Alicia Drake HCV AB <0.1 Normal 0.0-0.9 [facility] Comment on above: Performed By: #### C BC #### [facility] [address] [address] [address] Alicia Drake Hep A Ab, IgM Negative Normal Negative [facility] Comment on above: Performed By: #### C BC #### [facility] [address] [address] [address] Alicia Drake Hep B Core Ab, IgM Negative Normal Negative [facility] Comment on above: Performed By: #### C BC #### [facility] [address] [address] [address] Alicia Drake Interpretation: Comment Normal [facility] Comment on above: Result Comment: Nega tive Not infected with HCV, unless recent infection is suspected or other evidence exists to indicate HCV infection. Performed By: #### C BC #### [facility] [address] [address] [address] Alicia Drake HIV 1 AND 2 WITH REFLEXon HIV Screen 4th Generation wRfx Non-Reactive Normal Non Reactive [facility] Comment on above: Result Comment: HIV Negative HIV-1/HIV-2 antibodies and HIV-1 p24 antigen were NOT detected. There is no laboratory evidence of HIV infection. Performed By: #### H IV12 #### [facility] [address] [place] [address] Dr. Alicia Drake PROGESTERONEon 01-17-2022 Progesterone 0.1 ng/mL Normal [facility] Comment on above: Result Comment: Foll icular phase 0.1 - 0.9 Luteal phase 1.8 - 23.9 Ovulation phase 0.1 - 12.0 First trimester 11.0 - 44.3 Second trimester 25.4 - 83.3 Third trimester 58.7 - 214.0 Postmenopausal 0.0 - 0.1 Performed By: #### P ROBERT #### [facility] [address] [place] [address] Dr. Alicia Drake RPR QUANTon 01-17-2022 Rapid Plasma Reagin, Quant Non-Reactive Normal NonRea<1:1 [facility] Comment on above: Result Comment: Plea se Note: This test does not meet current guidelines for screening and diagnosis of syphilis. This test is intended for following treatment response in patients being treated for syphilis infection. To screen for syphilis infection, a reflex cascade that includes both RPR and a treponema-specific assay should be utilized, such as Treponema pallidum (Syphilis) Screening Garita (715496) or Rapid Plasma Reagin (RPR) Test With Reflex to Quantitative RPR and Confirmatory Treponema pallidum Antibodies ([id number]). Performed By: #### F NA #### [facility] [address] [place] [address] Dr. Alicia Drake PREG QUANT HCGon 01-16-2022 HCG QUANT <1 Normal [facility] Comment on above: Performed By: #### F NA #### [facility] [address] [place] [address] Dr. Alicia Drake HCG RANGE SEE BELOW Normal [facility] Comment on above: Result Comment: 5-50 0-1 WEEK 40-300 1-2 WEEKS 100-1,000 2-3 WEEKS 500-6,000 3-4 WEEKS 5,000-200,000 1-2 MONTHS 10,000-100,000 2-3 MONTHS 3,000-50,000 2ND TRIMESTER 1,000-50,000 3RD TRIMESTER Performed By: #### F NA #### [facility] [address] [place] [address] Dr. Alicia Drake US PELVIS TRANSVAGon 022 [...] SARAHI HART Date: 2022-01-16 17:32 Normal [facility] VAGINITIS/VAGINOSIS DNA PROB Pedro 01-16-2022 Lisa species Negative Normal Negative [facility] Comment on above: Performed By: #### F NA #### [facility] [address] [address] [address] Alicia Drake Gardnerella vaginalis Positive Abnormal Negative [facility] Comment on above: Performed By: #### F NA #### [facility] [address] [address] [address] Alicia Drake Trichomonas vaginalis Negative Normal Negative [facility] Comment on above: Performed By: #### F NA #### [facility] [address] [address] [address] Alicia Drake Vital Signs Date Time Vital Sign Value Performing Clinician Faci lity 04-10-2025 10:14040 Body mass index (BMI) [Ratio] 49.4 kg/m2 [employer] Work Phone: [facility] 04-10-2025 10:14040 Body weight 130.54 kg [facility] Work Phone: [facility] 04-10-2025 10:14-040 Diastolic blood pressure 74 mm[Hg] [employer] Work Phone: [facility] 04-10-2025 10:14-0400 Systolic blood pressure 120 mm[Hg] Nadia Lauren DO Work Phone: [facility] 02-27-2025 10:14-0400 Body mass index (BMI) [Ratio] 48.79 kg/m2 Nadia Lauren DO Work Phone: [facility] 02-27-2025 10:14-0400 Body weight 128.94 kg Nadia Lauren DO Work Phone: [facility] 02-27-2025 10:14-0400 Diastolic blood pressure 90 mm[Hg] Nadia Lauren DO Work Phone: [facility] 02-27-2025 10:14-0400 Systolic blood pressure 122 mm[Hg] Nadia Lauren DO Work Phone: [facility] 10-12-2023 14:58-0500 Body mass index (BMI) [Ratio] 47.55 kg/m2 Ana RODRIGUEZ Work Phone: [facility] 10-12-2023 14:58-0500 Body weight 125.65 kg Ana RODRIGUEZ Work Phone: [facility] 10-12-2023 14:58-0500 Diastolic blood pressure 84 mm[Hg] Ana RODRIGUEZ Work Phone: [facility] 10-12-2023 14:58-0500 Systolic blood pressure 126 mm[Hg] Ana RODRIGUEZ Work Phone: [facility] Healthcare Encounters Encounter Date Encounter Type Care Provider Facility Start: 04-17-2025 End: 04-17-2025 Clinisync Result Encounter Nadia Lauren DO Work Phone: [facility] External Department Unsolicited Start: 04-17-2025 End: 04-17-2025 Clinisync Result Encounter Nadia Lauren DO Work Phone: [facility] External Department Unsolicited Start: 04-10-2025 End: 04-13-2025 Clinisync Result Encounter Nadia Lauren DO Work Phone: [facility] External Department Unsolicited Start: 04-10-2025 End: [...] examination done Nadia Lauren DO Work Phone: [facility] Healthcare Start: 04-10-2025 End: 04-10-2025 ambulatory NADIA LAUREN Not Available Start: 04-02-2025 End: 04-02-2025 ambulatory NADIA LAUREN Not Available Start: 02-27-2025 End: 02-27-2025 Bamboo flowsheet Nadia Lauren DO Work Phone: [facility] Start: 02-27-2025 End: 02-28-2025 Bamboo flowsheet Nadia Lauren DO Work Phone: [facility] Start: 02-27-2025 End: 02-28-2025 [...] department patient visit NO PCP NO PCP [facility] Start: 12-10-2024 End: 12-10-2024 Emergency department patient visit NO PCP NO PCP [facility] Start: 10-23-2024 End: 10-23-2024 Emergency department patient visit NO PCP NO PCP [facility] Start: 01-12-2024 End: 01-13-2024 Emergency department patient visit NO PCP NO PCP [facility] Start: 10-12-2023 End: 10-12-2023 Office [...] preprocedural examination DR NADIA AGUILAR . [facility] Start: 09-28-2022 End: 09-29-[address] NADIA AGUILAR . Facility: Start: 09-28-2022 End: 09-29-2022 Encounter for other preprocedural examination DR NADIA AGUILAR . Facility:[facility] Start: 07-30-2022 End: 07-30-2022 ambulatory ANA DINH . Facility:[facility] Start: 05-28-2022 End: 05-28-[address] NADIA AGUILAR . Facility:[facility] Start: 04-17-2022 Encounter for preprocedural laboratory examination DR NADIA AGUILAR . [facility] Start: 04-17-2022 End: 04-17-[address] NADIA [...] AM EDT Office Visit JOE KOHLER [address] [place] [id number] Nadia Aguilar DO [address] [place] [address] JOE KOHLER Start: 04-10-2025 End: 04-10-2026 DHEA DHEA Lab Routine PCOS (polycystic ovarian syndrome) Expected: 04/10/2025 (Approximate), Expires: 04/10/2026 [facility] Comment on above: Expected: 04/10/2025 (Approximate), Expires: 04/10/2026 Start: 04-03-2025 End: 04-03-2025 Patient encounter procedure 04/03/2025 10:40 AM EDT Office Visit [facility] [address] [place] [id number] Nadia Aguilar, DO [address] [place], [place] [id number] [facility] Start: 03-20-2025 End: 03-20-2025 Patient encounter procedure 03/20/2025 2:00 PM EDT Office Visit [facility] [address] [place] [address] Ana Dinh PA [address] [place] [address] [facility] Start: 03-13-2025 End: 03-13-2025 Professional / ancillary services management 03/13/2025 2:30 PM EDT Ancillary Procedure [facility] [address] [place] [address] [facility] Start: 02-27-2025 End: 08-30-2025 US Pelvis US Pelvis w/ TV Imaging Routine PCB (post coital bleeding) Pelvic pain Dysmenorrhea Irregular menses Expected: 02/27/2025, Expires: 08/30/2025 [facility] Work Phone: Comment on above: Expected: 02/27/2025 , Expires: 08/30/2025 Start: 02-27-2025 End: 02-27-2025 Patient encounter procedure 02/27/2025 10:00 AM EDT Office Visit [facility] [address] [place] [address] Nadia Aguilar, DO [address] [place], [place] [id number] Arrived [facility] Comment on above: Arrived Start: 11-03-2023 End: 11-03-2023 Patient encounter procedure 11/03/2023 3:10 PM EST Office Visit [facility] [address] [place] [phone] Nadia Aguilar DO [address] [place] [address] [facility] Start: 10-12-2023 End: 10-12-2024 DHEA DHEA Lab Routine PCOS (polycystic ovarian syndrome) Expected: 10/12/2023 (Approximate), Expires: 10/12/2024 [facility] Comment on above: Expected: 10/12/2023 (Approximate), Expires: 10/12/2024 Start: 10-12-2023 End: 10-12-2024 US for US PELVIS-TRANSVAG IF INDICATED Imaging Routine PCOS (polycystic ovarian syndrome) Expected: 10/12/2023 (Approximate), Expires: 10/12/2024 [facility] Comment on above: Expected: 10/12/2023 (Approximate), Expires: 10/12/2024 CBC W Auto Different ial panel - Blood CBC and differential Lab Routine PCOS (polycystic ovarian syndrome) Ordered: 10/12/2023 [facility] Comment on above: Ordered: 10/12/2023 CBC W Auto Different ial panel - Blood CBC and differential Lab Routine PCOS (polycystic ovarian syndrome) Ordered: 04/10/2025 [facility] Comment on above: Ordered: 04/10/2025 CHLAMYDIA TRACHOMATI S (GENITO/STI) CHLAMYDIA TRACHOMATIS (GENITO/STI) Lab Routine PCB (post coital bleeding) Pelvic pain Ordered: 02/27/2025 [facility] Comment on above: Ordered: 02/27/2025 Cytology Cervical or vaginal smear or scraping study Pap Smear Pathology and Cytology Routine Well woman exam with routine gynecological exam Ordered: 04/10/2025 [facility] Work Phone: Comment on above: Ordered: 04/10/2025 DHEA-sulfate DHEA-sulfate Lab Routine PCOS (polycystic ovarian syndrome) Ordered: 10/12/2023 [facility] Comment on above: Ordered: 10/12/2023 DHEA-sulfate DHEA-sulfate Lab Routine PCOS (polycystic ovarian syndrome) Ordered: 04/10/2025 [facility] Comment on above: Ordered: 04/10/2025 Follicle stimulating hormone Follicle stimulating hormone Lab Routine PCOS (polycystic ovarian syndrome) Ordered: 10/12/2023 [facility] Comment on above: Ordered: 10/12/2023 Follicle stimulating hormone Follicle stimulating hormone Lab Routine PCOS (polycystic ovarian syndrome) Ordered: 04/10/2025 [facility] Comment on above: Ordered: 04/10/2025 hCG, quantitative, hCG, quantitative, Lab Routine PCOS (polycystic ovarian syndrome) Ordered: 10/12/2023 [facility] Work Phone: Comment on above: Ordered: 10/12/2023 hCG, quantitative, hCG, quantitative, Lab Routine PCOS (polycystic ovarian syndrome) Ordered: 04/10/2025 [facility] Comment on above: Ordered: 04/10/2025 Hemoglobin A1c measurement Hemoglobin A1c Lab Routine PCOS (polycystic ovarian syndrome) Irregular menses Ordered: 10/12/2023 [facility] Comment on above: Ordered: 10/12/2023 Hemoglobin A1c/Hemoglobin.total in Blood Hemoglobin A1c Lab Routine Pelvic pain Dysmenorrhea PCB (post coital bleeding) Ordered: 04/10/2025 [facility] Comment on above: Ordered: 04/10/2025 Luteinizing hormone Luteinizing hormone Lab Routine PCOS (polycystic ovarian syndrome) Ordered: 10/12/2023 [facility] Comment on above: Ordered: 10/12/2023 Luteinizing hormone Luteinizing hormone Lab Routine PCOS (polycystic ovarian syndrome) Ordered: 04/10/2025 [facility] Comment on above: Ordered: 04/10/2025 Neisseria gonorrhoea e DNA [Presence] in Unspecified specimen by TRISH with probe detection Neisseria gonorrhea DNA probe, direct Lab Routine PCB (post coital bleeding) Pelvic pain Ordered: 02/27/2025 [facility] Comment on above: Ordered: 02/27/2025 SURESWAB(R) ADVANCED VAGINITIS PLUS, TMA SURESWAB(R) ADVANCED VAGINITIS PLUS, TMA Pathology and Cytology Routine PCB (post coital bleeding) Pelvic pain Ordered: 02/27/2025 [facility] Comment on above: Ordered: 02/27/2025 Thyrotropin [Units/volume] in Serum or Plasma TSH Lab Routine PCOS (polycystic ovarian syndrome) Ordered: 10/12/2023 [facility] Comment on above: Ordered: 10/12/2023 Thyrotropin [Units/volume] in Serum or Plasma TSH Lab Routine PCOS (polycystic ovarian syndrome) Ordered: 04/10/2025 [facility] Comment on above: Ordered: 04/10/2025 Thyroxine (T4) free [Mass/volume] in Serum or Plasma T4, free Lab Routine PCOS (polycystic ovarian syndrome) Ordered: 10/12/2023 [facility] Comment on above: Ordered: 10/12/2023 Thyroxine (T4) free [Mass/volume] in Serum or Plasma T4, free Lab Routine PCOS (polycystic ovarian syndrome) Ordered: 04/10/2025 [facility] Comment on above: Ordered: 04/10/2025 Payers Date Payer Category Payer Private Health Insurance [employer] [id number] 2024 Unknown [id number] 2021 Medicaid [employer] [place] [employer] [id number] 2021-Present [address] [place] [address] [id number] 1999 Unknown [id number] [id number] .593 1999 Unknown [id number] 2.16.840.1.682487.3.579.2 .593 1999 Unknown [id number] 2.16.840.1.958759.3.579.2 .593 1999 Unknown [id number] 2.16.840.1.393304.3.579.2 .593 1999 Unknown [id number] 2.16.840.1.655048.3.579.2 .593 1999 Unknown [id number] 2.16.840.1.411485.3.579.2 .593 1999 Unknown [id number] 2.16.840.1.677296.3.579.2 .593 1999 Unknown [id number] 2.16.840.1.435513.3.579.2 .593 1999 Unknown [id number] 2.16.840.1.319304.3.579.2 .593 1999 Unknown [id number] 2.16.840.1.442340.3.579.2 .593 1999 Unknown [id number] 2.16.840.1.095915.3.579.2 .593 1999 Unknown [id number] 2.16.840.1.957451.3.579.2 .1286 1999 Unknown [id number] 2.16.840.1.324807.3.579.2 .1286 1999 Unknown [id number] 2.16.840.1.208650.3.579.2 .1259 1999 Unknown [id number] 2.16.840.1.912437.3.579.2 .1259 1999 Unknown [id number] 2.16.840.1.622001.3.579.2 .1259 1959 Unknown [id number] Social History Date Type Detail Facility Start: 04-11-[address] [facility] Never smoked tobacco [facility] Start: 04-11-2023 Tobacco use and exposure Smokeless t obacco non-user [facility] Start: 10-12-2023 End: 04-10-2025 Alcohol intake Lifetime non-drinker (finding) [facility] Start: 04-11-2023 End: 04-10-2025 History of Social function [facility] Start: 04-11-2023 End: 04-10-2025 Tobacco use panel [facility] Start: 1999 Sex Assigned At Not on file [facility] History of Present illness Narrative 04-10-2025 [...] on 04-26-[address] Aguilar at [facility]. appointment. MEDICATIONS Current Outpatient Medications Medication Instructions [...] nursing note reviewed. Exam conducted with a shuttle inspector present. Vitals: Estimated body mass index is [...] reviewed, and patient is to proceed to [facility] OR. Follow Up: Patient is to follow up between 1-2 weeks post operative to assess proper healing and recovery from procedure. Documented by Teresa Sherman LPN on behalf of: Nadia Aguilar DO documented in this encounter [facility] History of Present illness Narrative 02-27-2025 Teresa Sherman, ENROLLMENT COORDINATOR - 02/27/2025 10:00 AM EDT Note Date [...] nursing note reviewed. Exam conducted with a shuttle inspector present. Vitals: Estimated body mass index is [...] Nadia Aguilar DO documented in this encounter [facility] Clinical Note 12-10-2024 Note Date & Type Note Facility 12-10-2024 Note XR FOOT LT MIN 3 VWS Procedure: Left foot radiographs performed Number of views:3 History:Foot pain Comparison:09/11/2021 Findings: There is no fracture, dislocation, or destructive lesion. There is a small calcaneal spur. Impression: No acute findings. Finalized by Armando Danielle MD on 12/10/2024 8:38 PM [facility] History of Present illness Narrative [...] nursing note reviewed. Exam conducted with a shuttle inspector present. Vitals: Estimated body mass index is [...] of: MICHAEL Mccormick documented in this encounter [facility] Clinical Note 10-02-2022 Note Date & Type Note Facility 10-02-2022 Note OPERATIVE NOTE OPERATION DATE: 10/02/2022 PROCEDURE: Diagnostic laparoscopy with right salpingectomy. PREOPERATIVE DIAGNOSIS: 1. Pelvic pain. 2. Right hydrosalpinx. 3. Pelvic inflammatory disease. POSTOPERATIVE DIAGNOSIS: 1. Pelvic pain. 2. Right hydrosalpinx. 3. Pelvic inflammatory disease. ANESTHESIA: General. SURGEON: Nadia Aguilar D.O. GUN STOCKER: ALONDRA Santo URINE OUTPUT: Yellow and clear. [...] to Recovery Room in stable condition. [facility] Clinical Note 04-17-2022 Note Date & Type Note Facility 04-17-2022 Note OPERATIVE NOTE OPERATION DATE: 04/17/2022 PROCEDURE: Diagnostic laparoscopy, left salpingectomy with right hydrosalpingotomy. PREOPERATIVE DIAGNOSIS: Pelvic pain, questionable uterine fibroid. POSTOPERATIVE DIAGNOSIS: Bilateral hydrosalpinx, significant in size, with adhesions of bowel to the ovary and pelvic side wall on the patient's left side. SURGEON: Nadia Aguilar D.O. GUN STOCKER: ALONDRA Santo URINE OUTPUT: Yellow and clear. [...] to Recovery Room in stable condition. [facility] Note 02-23-2022 Note Date & Type [...] by: TANYA LEVINE Date: 2022-02-23 14:16 [facility] Evaluation note Note Date & Type Note Facility Evaluation note Diagnosis Vaginal discharge Leukorrhea, not specified as infective STD exposure PCOS (polycystic ovarian syndrome) Polycystic ovaries Irregular menses Irregular menstrual cycle documented in this encounter [facility] Evaluation note Note Date & Type Note Facility Evaluation note Diagnosis PCB (post coital bleeding) Postcoital bleeding Pelvic pain Dysmenorrhea Irregular menses Irregular menstrual cycle documented in this encounter [facility] Evaluation note Note Date & Type Note Facility Evaluation note Diagnosis Pre-op examination Pelvic pain Dysmenorrhea PCB (post coital bleeding) Postcoital bleeding Well woman exam with routine gynecological exam Routine gynecological examination PCOS (polycystic ovarian syndrome) Polycystic ovaries documented in this encounter [facility] Summary Purpose Family History No Family History Records FoundNo Family History Records FoundNo Family History Records Found Advance Directives No Advanced Directives Records FoundNo Advanced Directives Records FoundNo Advanced Directives Records Found Additional Source Comments INFORMATION SOURCE (unrecogn ized section and content) DATE CREATED AUTHOR 01/13/2023 [facility] DATE CREATED AUTHOR AUTHOR'S ORGANIZ ATION 12/19/2024 [facility] DATE CREATED AUTHOR AUTHOR'S ORGANIZ ATION 04/11/2025 [facility] EPIC Reason for Visit (unrecogniz [...] BE BASED ON THE PRIMARY CLINICAL RECORDS. [employer] provides no warranty or guarantee of the accuracy or completeness of information in this document.
--- NOTE | 2025-04-26 15:43 | PM.ONB ---
Brief Operative Note Date of procedure: 04/26/25 Pre-op diagnosis general: pelvic pain Post-op diagnosis: same as pre-op Procedure: NAME OF PROCEDURE: [diagnostic laparoscopy ] PROCEDURE: The patient was taken back to the Operating Room where she was placed in dorsal lithotomy position after given general anesthesia. The patient was prepped and draped in normal sterile fashion. A sponge stick was placed into the patient's vagina. Attention was turned to the patient's abdomen, where a small umbilical incision was made. The fascia was tented using Rajiv clamps and the fascia was entered sharply. Confirmation of intraabdominal placement of the 10 mm port was confirmed under direct visualization using a laparoscope. The patient's abdomen was then insufflated using CO2 gas with approximately 4 liters. A second port was placed left laterally, this was done under direct visualization with a 5 mm port. Survey of the patient's abdomen demonstrated normal liver and gallbladder. Survey of the patient's pelvic anatomy demonstrated normal appearing rt and lt ovary and absent bilateral tubes as well as normal appearing uterus. No endometrial implants could be noted, no evidence of any pelvic disease was seen, normal appearing pelvic cavity. All instruments were removed from the patient's abdomen. The patient's abdomen was deinsufflated of CO2 gas. The patient tolerated the procedure well. Sponge stick was removed from the patient's vagina. The patient's infraumbilical fascia was closed using #0 Vicryl on a GI needle. The patient's skin was closed laterally and infraumbilically using 4-0 Vicryl. The patient tolerated the procedure well. Sponge, lap and needle counts were correct x 2. The patient was taken to Recovery Room in stable condition. Anesthesia: DAVIDA Surgeon: Rodney Aguilar Laboratory Technologist: Felicity Jean Estimated blood loss (mL): 5 Pathology: none sent Condition: stable Urinary Catheter Management Urinary Catheter Management Urethral: Cath placed during this visit: no
== END 2025-04-26 17:20 | disposition home or self-care (01) ==
LOC: SURGOUT 12:37
PROVIDERS: Visit Provider Obstetrics & Gynecology
PROC: (CPT 840; principal; 2025-04-26 14:50)
DX: N93.0 Postcoital and contact bleeding (principal); R10.2 Pelvic and perineal pain; N94.6 Dysmenorrhea, unspecified; E66.01 Morbid (severe) obesity due to excess calories; Z68.41 Body mass index [BMI] 40.0-44.9, adult; Z98.51 Tubal ligation status; G47.33 Obstructive sleep apnea (adult) (pediatric); J45.909 Unspecified asthma, uncomplicated; K21.9 Gastro-esophageal reflux disease without esophagitis
CPT/HCPCS: 49320; 36415; 84702; 85025; J1100; J1171; J1885; J2250; J2405; J2704; J3010